=== PATIENT | female | born 1970 | race Caucasian/White ===

== ENCOUNTER 2018-11-13 08:02 | Emergency (ER) | payer MEDICAID, OTHER ==
[~2018-11-13] VITALS: Ht 152.4 cm; Wt 77.1 kg
--- NOTE | 2018-11-13 08:40 | NUR ---
NOTIFIED OF BUSY ER WITH POSSIBLE LONG WAIT TIME
--- NOTE | 2018-11-13 09:51 | NUR ---
RESTING IN BED. NOTIFIED PT THAT DR WAS STILL WITH CRITICAL PTS. DENIES NEEDS AT THIS TIME.
[2018-11-13] MEDS ORDERED: CYCL10TA9 PO (10:16)
--- NOTE | 2018-11-13 10:16 | ED Lower Extremity ---
General Chief Complaint: Lower Extremity Stated Complaint: LEG PAIN Nursing Triage Note: ARRIVED VIA AMB WITH A LIMP TO ROOM 05. STATES SHE THINKS SHE PULLED A MUSCLE WHILE MOVING FURNITURE YESTERDAY. COMPLAINS OF RIGHT BUTTOCK PAIN. STATES SHE TOOK IBUPROFEN LAST NOC WHICH DID NOT HELP. Nursing Sepsis Screen: No Definite Risk Source: patient Exam Limitations: no limitations History of Present Illness Date Seen by Provider: Nov 13, 2018 Time Seen by Provider: 09:55 Initial Comments Here with complaint of pain to the left buttock area after pushing furniture yesterday. Denies other injury. Noted that it was painful overnight. Here today for evaluation. Onset: yesterday Severity: moderate Pain/Injury Location: left hip Method of Injury: unknown Modifying Factors: Improves With Immobilization; Worse With Movement Allergies and Home Medications Allergies Uncoded Allergies: DOES NOT REMEMBER NAME OF ALLERGY. (Allergy, Unknown, 11/13/18) Home Medications No Active Prescriptions or Reported Meds Patient Home Medication List Home Medication List Reviewed: Yes Review of Systems Constitutional: see HPI; No chills, No fever, No weakness Respiratory: no symptoms reported Cardiovascular: no symptoms reported Musculoskeletal: see HPI, joint pain, muscle pain, muscle stiffness Skin: no symptoms reported Past Hoohuju-Xbotbu-Slskme Hx Past Med/Social Hx: Reviewed Nursing Past Med/Soc Hx Patient Social History Alcohol Use: Denies Use Recreational Drug Use: No (PAST HISTORY OF POT. ) Smoking Status: Current Everyday Smoker Recent Foreign Travel: No Contact w/Someone Who Travel: No Recent Infectious Disease Expo: No Recent Hopitalizations: No Seasonal Allergies Seasonal Allergies: No Past Medical History Surgeries: Yes Tubal Ligation Respiratory: Yes Asthma Cardiac: No Neurological: No Gastrointestinal: No Musculoskeletal: Yes Fractures Endocrine: No HEENT: No Did You Recieve Any Treatments: No Psychosocial: No Integumentary: No Family Medical History Reviewed Nursing Family Hx Physical Exam Vital Signs Vital Signs - First Documented 11/13/18 08:40 Temp 98.0 Pulse 78 Resp 16 B/P (MAP) 130/74 (92) Pulse Ox 98 O2 Delivery Room Air Capillary Refill : Less Than 3 Seconds Height, Weight, BMI Height: 5'" Weight: 170lbs. oz. 77.825017pn; BMI Method:Stated General Appearance: WD/WN, no apparent distress Cardiovascular: regular rate, rhythm, no murmur Respiratory: lungs clear, normal breath sounds Back: normal inspection, no CVA tenderness, no vertebral tenderness Legs: left leg soft tissue tenderness, left leg other (tender to that area of the left buttock initially when stepping up or externally rotating hip.) Progress/Results/Core Measures Results/Orders Vital Signs/I&O 11/13/18 08:40 Temp 98.0 Pulse 78 Resp 16 B/P (MAP) 130/74 (92) Pulse Ox 98 O2 Delivery Room Air Blood Pressure Mean: 92 Progress Progress Note : Progress Note Seen and evaluated. Discharged home with return precautions. Patient verbalize understanding instructions and agreement with plan Departure Impression Primary Impression: Muscle strain of gluteal region Qualified Codes: S76.012A - Strain of muscle, fascia and tendon of left hip, initial encounter Disposition: HOME, SELF-CARE Condition: Stable Departure-Patient Inst. Decision time for Depature: 10:14 Referrals: NO,LOCAL PHYSICIAN (PCP/Family) Primary Care Physician Patient Instructions: Muscle Strain (DC) Add. Discharge Instructions: All discharge instructions reviewed with patient and/or family. Voiced understanding. You may take ibuprofen 800 mg every 8 hours as needed for pain. You may take Tylenol/acetaminophen 1000 mg every 8 hours as needed for pain. He may use over- the-counter preparations such as icy hot with lidocaine or similar to areas of concern. You may use heat or ice to area of concern which ever feels better. Follow up with your Dr. in a few days for recheck. Return for worse pain, swelling, weakness, numbness of the leg, difficulty walking or going to the bathroom or other concerns as needed. Scripts Cyclobenzaprine HCl (Cyclobenzaprine HCl) 10 Mg Tablet 10 MG PO Q8H PRN for SPASMS, #15 TAB 0 Refills Prov: CARLOS EDUARDO AMOS MD 11/13/18 CARLOS EDUARDO AMOS MD Nov 13, 2018 10:16
[2018-11-13 10:18] VITALS: BP 130/74
== END 2018-11-13 10:18 | disposition home or self-care (01) ==
LOC: EDUNIT# 08:02 → ER 08:03
DX: S76.012A Strain of muscle, fascia and tendon of left hip, initial encounter (principal); J45.909 Unspecified asthma, uncomplicated; F17.200 Nicotine dependence, unspecified, uncomplicated; Z98.51 Tubal ligation status; X50.0XXA Overexertion from strenuous movement or load, initial encounter
CPT/HCPCS: 99282

== ENCOUNTER 2019-02-10 12:31 | Emergency (ER) | payer MEDICAID ==
[~2019-02-10] VITALS: Ht 152.4 cm; Wt 77.1 kg
[~2019-02-10 12:31] MED LIST: CYCL10TA9 PO
--- OUTSIDE RECORDS SUMMARY | 2019-02-10 12:38 | XMS REPORT ---
Author Author LUANA VARELA [facility] Address [address] [place] [address] Care Team Providers Care Corporate Development Analyst Name Role Phone LUANA VARELA Unavailable PROBLEMS Type Condition ICD9-CM Code BWS59-HL Code Onset Dates Condition Status SNOMED Code Problem Episodic mood disorder F39 Active 39882069 Problem Mild intermittent asthma without complication J45.20 Active 083672863 Problem Bilateral low back pain without sciatica M54.5 Active 342905679 ALLERGIES No Information ENCOUNTERS Encounter Location Date Diagnosis [facility] [id number] [place] [id number] November, Nasopharyngitis J00 [facility] [id number] [place] [address] November, Poison cesar dermatitis L23.7 and Itching L29.9 [id number] [place] [id number] Sep, Irritant contact dermatitis due to plants, except food L24.7 [facility] [id number] [place] [address] Sep, [facility] [id number] [place] [address] Feb, Poison cesar L23.7 [facility] [address] [id number] [id number] Feb, Closed fracture of right ankle with routine healing, subsequent encounter S82.891D [id number] [place] [id number] Feb, Closed fracture of right ankle with routine healing, subsequent encounter S82.891D and Mild intermittent asthma without complication J45.20 [id number] [place] [id number] Oct, [facility] [address] [id number] [place] [id number] Sep, Bilateral low back pain without sciatica M54.5 [facility] [address] [id number] [place] [id number] Sep, [facility] [address] [id number] [place], [place] [id number] Aug, [facility] [address] [id number] [place] [id number] Aug, [facility] [address] [id number][place] [id number] Aug, Encounter for other specified administrative purpose Z02.89 [facility] [id number] [place] [id number] Jul, Bilateral low back pain without sciatica M54.5 and Episodic mood disorder F39 [facility] [address] [id number] [place], [place] [id number] Jun, [facility] [address] [id number] [place] [id number] Jun, [facility] [address] [id number][place] [id number] Jun, [facility] [address] [id number], [place] [id number] Jun, [facility] [address] [id number], [place] [id number] May, [facility] [address] [id number][place] [id number] May, [facility] [address] [id number][place] [id number] May, [facility] [address] [facility] [id number] [place], [place] [id number] Apr, [facility] [address] [id number][place] [id number] Apr, Dental examination Z01.20 [facility] [address] [id number] [place], [place] [id number] Apr, [facility] [address] [id number] [place], [place] [id number] Apr, [facility] [address] [id number] [place], [place] [id number] Mar, Tobacco abuse disorder 305.1 [facility] [address] [id number] [place], [place] [id number] Mar, Anxiety state, unspecified 300.00 [facility] [address] [facility] [id number], [place] [id number] Mar, [facility] [address] [id number] [place], [place] [id number] Feb, [facility] [address] [id number] [place], [place] [id number] Feb, [facility] [address] [facility] [id number] [place], [place] [id number] Feb, Routine gynecological examination V72.31 ; Visit for gynecologic examination V72.31 ; Pap test, as part of routine gynecological examination V76.2 ; Breast cancer screening V76.10 and Vaginal leukorrhea 623.5 [facility] [address] [id number] [place] [id number] Feb, Lumbago 724.2 and Unspecified arthropathy, site unspecified 716.90 [facility] [address] [id number] [place], [place] [id number] Feb, [facility] [address] [id number] [place] [id number] Feb, [facility] [address] [id number] [place], [place] [id number] Jan, Sciatica 724.3 and Anxiety state, unspecified 300.00 [facility] [address] [id number] [place], [place] [id number] Dec, [facility] [address] [id number] [place], [place] [id number] Dec, Sciatica 724.3 and Anxiety state, unspecified 300.00 [facility] [id number] [place] [address] [id number] November, [facility] [address] [id number] [place] [id number] November, Sciatica 724.3 and Poison cesar 692.6 [facility] [place] [facility] [address]00565100[place], [place] [address] Oct, [facility] [place] [facility] [id number] [place] [address] Oct, [facility] [place] [facility] [id number] [place] [address] Sep, [facility] [id number] [place] [address] [id number] Sep, [facility] [place] [facility] [id number] [place] [address] Sep, [facility] [id number] [place], [place] [id number] Aug, [facility] [place] [facility] [address]00565100[place], [place] [address] Aug, [facility] [id number] [place], [place] [id number] Jul, [facility] [place] [facility] [address]00565100[place], [place] [address] Jul, [facility] [address] [id number] [place], [place] [id number] Jul, [facility] [place] [facility] [address]00565100[place], [place] [address] Jul, [facility] [place] [facility] [address] [id number], [place] [address] Jun, [facility] [id number] [place], [place] [id number] Jun, [facility] [place] [facility] [address]00565100[place], [place] [address] Jun, [facility] [place] [facility] [address]00565100[place], [place] [address] May, [facility] [address] [id number] [place] [id number] May, [facility] [address] [id number] [place] [id number] Apr, [facility] [place] [facility] [address] [facility] [id number] [place] [address] Apr, [facility] [address] [id number] [place] [id number] Mar, [facility] [place] [facility] [address] [facility] [id number] [place] [address] Mar, [facility] [address] [id number] [place] [id number] Mar, [facility] [place] [facility] [address] [facility] [id number] [place] [address] Mar, [facility] [address] [facility] [id number] [place] [id number] Jan, [facility] [place] [facility] [address] [id number], [place] [address] Jan, [facility] [address] [facility] [id number] [place] [id number] Dec, [facility] [place] [facility] [address] [id number], [place] [address] Dec, [facility] [address] [id number] [place] [id number] Dec, [facility] [place] [facility] [address] [facility] [id number], [place] [address] Dec, [facility] [address] [id number] [place] [id number] Dec, [facility] [place] [facility] [address] [facility] [id number], [place] [address] Dec, [facility] [address] [facility] [id number] [place], [place] [id number] November, [facility] [place] [facility] [address] [id number], [place] [address] November, [facility] [address] [id number] [place] [id number] November, [facility] [address] [facility] [id number] [place] [address] November, [facility] [address] [id number] [place] [id number] Oct, [facility] [place] [facility] [address] [facility] [id number] [place] [address] Oct, [facility] [address] [id number] [place] [id number] Sep, [facility] [place] [facility] [address] [facility] [id number] [place] [address] Sep, [facility] [address] [facility] [id number] [place] [id number] Sep, [facility] [address]00565100[place], [place] [address] Sep, [facility] [address] [facility] [id number] [place] [id number] Aug, [facility] [place] [facility] [address]00565100[place], [place] [address] Aug, [facility] [address] [facility] [id number] [place] [id number] Aug, [facility] [address] [id number], [place] [address] Aug, [facility] [place] [facility] [address] [facility] [id number], [place] [address] Jul, [facility] [address] [id number] [place] [id number] Jul, [facility] [address] [id number] [place] [id number] Jul, [facility] [place] [facility] [address] [facility] [id number], [place] [address] Jul, [facility] [address] [id number] [place] [id number] Jul, [facility] [address] [facility] [id number] [place] [address] Jul, [facility] [address] [id number] [place] [id number] Apr, [facility] [address] [facility] [id number], [place] [address] Apr, [facility] [address] [id number] [place] [id number] Apr, [facility] [address] [id number] [place] 8262075[address] Mar, [facility] [address] [id number] [place] [id number] Feb, [facility] [address] [facility] [id number] [place] [address] Feb, [facility] [address] [id number] [place] [id number] Jan, [facility] [address] [facility] [id number], [place] [address] Dec, [facility] [address] [id number] [place] [id number] Dec, [facility] [address] [facility] [id number], [place] [address] Dec, [facility] [address] [id number] [place] [id number] Dec, [facility] [address] [id number] [place] [id number] November, [facility] [address] [id number] [place] 698686344 Sep, [facility] [address] [id number] [place] [id number] Aug, [facility] [address] [id number] [place] [id number] Jul, [facility] [address] [id number] [place] [id number] Jul, [facility] [address] [id number] [place] [id number] Jun, [facility] [place] [facility] [address] [facility] [id number], [place] [address] Jun, [facility] [address] [id number] [place] [id number] May, [facility] [place] [facility] [address] [facility] [id number], [place] [address] May, [facility] [address] [id number] [place] [id number] May, [facility] [place] [facility] [address] [facility] [id number] [place] [address] May, [facility] [place] [facility] [address] [facility] [id number], [place] [address] May, [facility] [address] [id number] [place], [place] [id number] Apr, [facility] [address] [id number] [place], [place] [id number] Apr, [facility] [place] [facility] [address] [facility] [id number], [place] [address] Apr, [facility] [place] [facility] [address] [facility] [id number], [place] [address] Apr, [facility] [address] [id number] [place] [id number] Mar, [facility] [address] [id number] [place], [place] [id number] Feb, [facility] [address] [id number] [place], [place] [id number] Feb, [facility] [address] [id number] [place] [id number] Feb, [facility] [address] [id number] [place] 170583748 Jan, [facility] [address] [id number] [place], [place] [id number] Jan, [facility] [address] [id number] [place], [place] [id number] Jan, [facility] [address] [facility] [id number] [place] [address] Jan, [address] [id number] [place] [id number] Dec, [address] [id number] [place] [id number] Dec, IMMUNIZATIONS No Known Immunizations SOCIAL HISTORY Never Assessed REASON FOR VISIT PLAN OF CARE VITAL SIGNS MEDICATIONS No Known Medications RESULTS No Results PROCEDURES No Known procedures INSTRUCTIONS MEDICATIONS ADMINISTERED No Known Medications MEDICAL (GENERAL) HISTORY Type Description Date Medical History asthma Medical History anxiety Medical History osteoarthritis Surgical History tubal ligation 1992 Hospitalization History [facility] care for poison cesar November 2014 Hospitalization History right ankle fracture, has a brace on 12/2016
--- OUTSIDE RECORDS SUMMARY | 2019-02-10 12:38 | XMS REPORT ---
Author Author LUANA VARELA [facility] Address [address] [place] [address] Care Team Providers Care Portfolio Mgr Name Role Phone LUANA VARELA Unavailable PROBLEMS Type Condition ICD9-CM Code ULI04-TN Code Onset Dates Condition Status SNOMED Code Problem Episodic mood disorder F39 Active 17237215 Problem Mild intermittent asthma without complication J45.20 Active 123071018 Problem Bilateral low back pain without sciatica M54.5 Active 225085791 ALLERGIES No Information ENCOUNTERS Encounter Location Date Diagnosis [facility] [id number] [place] [phone] November, Nasopharyngitis J00 [facility] [id number] [place] [address] November, Poison cesar dermatitis L23.7 and Itching L29.9 [id number] [place] [id number] Sep, Irritant contact dermatitis due to plants, except food L24.7 [facility] [id number] [place] [address] Sep, [facility] [id number] [place] [address] Feb, Poison cesar L23.7 [facility] [address] [id number][place] [id number] Feb, Closed fracture of right ankle with routine healing, subsequent encounter S82.891D [id number] [place] [address] [id number] Feb, Closed fracture of right ankle with routine healing, subsequent encounter S82.891D and Mild intermittent asthma without complication J45.20 [id number] [place] [address] [id number] Oct, [facility] [place] [address] [id number][place] [id number] Sep, Bilateral low back pain without sciatica M54.5 [facility] [address] [id number], [place] [id number] Sep, [facility] [address] [id number], [place] [id number] Aug, [facility] [address] [id number], [place] [id number] Aug, [facility] [address] [id number], [place] [id number] Aug, Encounter for other specified administrative purpose Z02.89 [facility] [id number], [place] [id number] Jul, Bilateral low back pain without sciatica M54.5 and Episodic mood disorder F39 [facility] [address] [id number], [place] [id number] Jun, [facility] [address] [id number], [place] [id number] Jun, [facility] [address] [id number], [place] [id number] Jun, [facility] [address] [id number], [place] [id number] Jun, [facility] [address] [id number], [place] [id number] May, [facility] [address] [id number], [place] [id number] May, [facility] [address] [id number], [place] [id number] May, [facility] [address] [facility] [id number][place] [phone] Apr, [facility] [address] [id number], [place] [id number] Apr, Dental examination Z01.20 [facility] [address] [id number], [place] [id number] Apr, [facility] [address] [id number], [place] [id number] Apr, [facility] [address] [id number], [place] [id number] Mar, Tobacco abuse disorder 305.1 [facility] [address] [id number], [place] [id number] Mar, Anxiety state, unspecified 300.00 [facility] [id number] [facility] [id number][place] [id number] Mar, [facility] [address] [id number], [place] [id number] Feb, [facility] [address] [id number], [place] [id number] Feb, [facility] [place] [address] [facility] [id number], [place] [phone] Feb, Routine gynecological examination V72.31 ; Visit for gynecologic examination V72.31 ; Pap test, as part of routine gynecological examination V76.2 ; Breast cancer screening V76.10 and Vaginal leukorrhea 623.5 [facility] [place] [address] [id number], [place] [id number] Feb, Lumbago 724.2 and Unspecified arthropathy, site unspecified 716.90 [facility] [place] [address] [id number], [place] [id number] Feb, [facility] [place] [address] [id number], [place] [id number] Feb, [facility] [place] [address] [id number], [place] [id number] Jan, Sciatica 724.3 and Anxiety state, unspecified 300.00 [facility] [place] [address] [id number], [place] [id number] Dec, [facility] [address] [id number], [place] [id number] Dec, Sciatica 724.3 and Anxiety state, unspecified 300.00 [facility] [id number] [place] [address] [id number] November, [facility] [address] [id number], [place] [id number] November, Sciatica 724.3 and Poison cesar 692.6 [facility] [place] [facility] [address]00565100[place] [address] Oct, [facility] [place] [facility] [id number] [place] [address] Oct, [facility] [place] [facility] [id number] [place] [address] Sep, [facility] [id number] [place] [address] [id number] Sep, [facility] [place] [facility] [id number] [place] [address] Sep, [facility] [id number], [place] [id number] Aug, [facility] [place] [facility] [address]00565100[place], [place] [address] Aug, [facility] [id number], [place] [id number] Jul, [facility] [place] [facility] [address]00565100[place], [place] [address] Jul, [facility] [address] [id number], [place] [id number] Jul, [facility] [place] [facility] [address]00565100[place], [place] [address] Jul, [facility] [place] [facility] [address] [id number], [place] [address] Jun, [facility] [id number], [place] [id number] Jun, [facility] [place] [facility] [address]00565100[place], [place] [address] Jun, [facility] [place] [facility] [address]00565100[place], [place] [address] May, [facility] [address] [id number] [place] [id number] May, [facility] [address] [id number] [place] [id number] Apr, [facility] [place] [facility] [address] [facility] [id number] [place] [address] Apr, [facility] [address] [id number] [place] [id number] Mar, [facility] [place] [facility] [address] [facility] [id number] [place] [address] Mar, [facility] [address] [id number] [place] [id number] Mar, [facility] [place] [facility] [address] [facility] [id number] [place] [address] Mar, [facility] [address] [facility] [id number] [place] [id number] Jan, [facility] [place] [facility] [address] [id number], [place] [address] Jan, [facility] [address] [facility] [id number] [place] [id number] Dec, [facility] [place] [facility] [address] [id number], [place] [address] Dec, [facility] [address] [id number] [place] [id number] Dec, [facility] [place] [facility] [address] [facility] [id number], [place] [address] Dec, [facility] [address] [id number] [place] [id number] Dec, [facility] [place] [facility] [address] [facility] [id number], [place] [address] Dec, [facility] [address] [facility] [id number], [place] [id number] November, [facility] [place] [facility] [address] [id number], [place] [address] November, [facility] [address] [id number] [place] [id number] November, [facility] [address] [facility] [id number] [place] [address] November, [facility] [address] [id number] [place] 870982390 Oct, [facility] [place] [facility] [address] [facility] [id number] [place] [address] Oct, [facility] [address] [id number] [place] [id number] Sep, [facility] [place] [facility] [address] [facility] [id number] [place] [address] Sep, [facility] [address] [facility] [id number] [place] 232733104 Sep, [facility] [address]00565100[place], [place] [address] Sep, [facility] [address] [facility] [id number] [place] [id number] Aug, [facility] [place] [facility] [address]00565100[place], [place] [address] Aug, [facility] [address] [facility] [id number], [place] 684455590 Aug, [facility] [address] [id number], [place] [address] Aug, [facility] [place] [facility] [address] [facility] [id number], [place] [address] Jul, [facility] [address] [id number] [place] [id number] Jul, [facility] [address] [id number] [place] [id number] Jul, [facility] [place] [facility] [address] [facility] [id number], [place] [address] Jul, [facility] [address] [id number], [place] 189524268 Jul, [facility] [address] [facility] [id number] [place] [address] Jul, [facility] [address] [id number] [place] [id number] Apr, [facility] [address] [facility] [id number], [place] [address] Apr, [facility] [address] [id number] [place] [id number] Apr, [facility] [address] [id number] [place] 139163828 Mar, [facility] [address] [id number] [place] [id number] Feb, [facility] [address] [facility] [id number] [place] [address] Feb, [facility] [address] [id number] [place] [id number] Jan, [facility] [address] [facility] [id number], [place] [address] Dec, [facility] [address] [id number] [place] 843574282 Dec, [facility] [address] [facility] [id number], [place] [address] Dec, [facility] [address] [id number] [place] [id number] Dec, [facility] [address] [id number] [place] 402603852 November, [facility] [address] [id number] [place] 599282914 Sep, [facility] [address] [id number] [place] 989679426 Aug, [facility] [address] [id number] [place] 090548253 Jul, [facility] [address] [id number] [place] 154819703 Jul, [facility] [address] [id number] [place] [id number] Jun, [facility] [place] [facility] [address] [facility] [id number], [place] [address] Jun, [facility] [address] [id number] [place] 809269413 May, [facility] [place] [facility] [address] [facility] [id number], [place] [address] May, [facility] [address] [id number], [place] [id number] May, [facility] [place] [facility] [address] [facility] [id number] [place] [address] May, [facility] [place] [facility] [address] [facility] [id number], [place] [address] May, [facility] [address] [id number], [place] [id number] Apr, [facility] [address] [id number], [place] 965685349 Apr, [facility] [place] [facility] [address] [facility] [id number], [place] [address] Apr, [facility] [place] [facility] [address] [facility] [id number], [place] [address] Apr, [facility] [address] [id number], [place] [id number] Mar, [facility] [address] [id number], [place] 057447895 Feb, [facility] [address] [id number], [place] 254428859 Feb, [facility] [address] [id number] [place] 105826273 Feb, [facility] [address] [id number] [place] [id number] Jan, [facility] [address] [id number], [place] 318978123 Jan, [facility] [address] [id number], [place] [id number] Jan, [facility] [address] [facility] [id number] [place] [address] Jan, [facility] [address] [facility] [id number] [place] [id number] Dec, [facility] [address] [facility] [id number] [place] 3481223[address] Dec, IMMUNIZATIONS No Known Immunizations SOCIAL HISTORY Never Assessed REASON FOR VISIT PLAN OF CARE VITAL SIGNS Height 62.5 in 2014-09-10 Weight 171.01 lbs 2014-09-10 Temperature 98.5 degrees Fahrenheit 2014-09-10 Heart Rate 72 bpm 2014-09-10 Respiratory Rate 16 2014-09-10 Blood pressure systolic 110 mmHg 2014-09-10 Blood pressure diastolic 72 mmHg 2014-09-10 MEDICATIONS No Known Medications RESULTS No Results PROCEDURES No Known procedures INSTRUCTIONS MEDICATIONS ADMINISTERED No Known Medications MEDICAL (GENERAL) HISTORY Type Description Date Medical History asthma Medical History anxiety Medical History osteoarthritis Surgical History tubal ligation 1992 Hospitalization History [facility] care for poison cesar November 2014 Hospitalization History right ankle fracture, has a brace on 12/2016
--- OUTSIDE RECORDS SUMMARY | 2019-02-10 12:39 | XMS REPORT ---
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 Active 390736325 Problem Cough 786.2 Active 80201547 Problem Asthma, unspecified, unspecified status 493.90 Active 07049621 Problem Acute upper respiratory infections of unspecified site 465.9 Active 62573303 Problem Nondependent tobacco use disorder 305.1 Active 861848240 Problem Episodic mood disorder F39 Active 00612511 Problem Sciatica 724.3 Active 36489288 Problem Mild intermittent asthma without complication J45.20 Active 050170709 Problem Lumbago 724.2 Active 308264484 Problem Anxiety state, unspecified 300.00 Active 211967172 Problem Unspecified episodic mood disorder 296.90 Active 014044481 Problem Pityriasis versicolor 111.0 Active 63626260 Problem Bilateral low back pain without sciatica M54.5 Active 431113427 ALLERGIES No Information ENCOUNTERS Encounter Location Date Diagnosis [facility] [address] [facility] [id number], [place] [address] November, Poison cesar dermatitis L23.7 and Itching L29.9 [facility] [address] [id number], [place] [id number] Sep, Irritant contact dermatitis due to plants, except food L24.7 [facility] [address] [facility] [id number], [place] [address] Sep, [facility] [address] [id number], [place] [address] Feb, Poison cesar L23.[address] [id number][place] [id number] Feb, Closed fracture of right ankle with routine healing, subsequent encounter S82.891D [facility] [address] [id number], [place] [address] Feb, Closed fracture of right ankle with routine healing, subsequent encounter S82.891D and Mild intermittent asthma without complication J45.20 [facility] [place] [address] [id number], [place] 512960075 Oct, [facility] [id number] [place] [address] [id number] Sep, Bilateral low back pain without sciatica M54.5 [facility] [address] [id number], [place] [id number] Sep, [facility] [address] [id number] [place] [address] [id number] Aug, [facility] [place] [id number] [place] [address] [id number] Aug, [facility] [address]00565100[place] [id number] Aug, Encounter for other specified administrative purpose Z02.89 [facility] [id number], [place] [address]61 Jul, Bilateral low back pain without sciatica M54.5 and Episodic mood disorder F39 [facility] [place] [address] [id number], [place] [id number] Jun, [facility] [address] [id number], [place] [id number] Jun, [facility] [address] [id number], [place] [id number] Jun, [facility] [address] [id number], [place] [id number] Jun, [facility] [address] [id number], [place] [id number] May, [facility] [address] [id number], [place] [id number] May, [facility] [address] [id number], [place] [id number] May, [facility] [address] [id number], [place] 859277383 Apr, [facility] [address] [id number], [place] [id number] Apr, Dental examination Z01.20 [facility] [place] [address] [id number], [place] [id number] Apr, [facility] [address] [id number], [place] 634805013 Apr, [facility] [address] [id number], [place] [id number] Mar, Tobacco abuse disorder 305.1 [facility] [id number] [place] [address] [id number] Mar, Anxiety state, unspecified 300.00 [facility] [address] [facility] [address] [id number], [place] [id number] Mar, [facility] [address] [id number], [place] [id number] Feb, [facility] [address] [id number], [place] [id number] Feb, [facility] [address] [id number], [place] [id number] Feb, Routine gynecological examination V72.31 ; Visit for gynecologic examination V72.31 ; Pap test, as part of routine gynecological examination V76.2 ; Breast cancer screening V76.10 and Vaginal leukorrhea 623.5 [facility] [address] [id number], [place] 126712451 Feb, Lumbago 724.2 and Unspecified arthropathy, site unspecified 716.90 [facility] [address] [id number], [place] [id number] Feb, [facility] [address] [id number], [place] 387708317 Feb, [facility] [address] [id number], [place] 072303041 Jan, Sciatica 724.3 and Anxiety state, unspecified 300.00 [facility] [place] [address] [id number], [place] [id number] Dec, [facility] [address] [id number], [place] 138166904 Dec, Sciatica 724.3 and Anxiety state, unspecified 300.00 [facility] [address] [id number], [place] [id number] November, [facility] [id number] [place] [address] [id number] November, Sciatica 724.3 and Poison cesar 692.6 [facility] [place] [facility] [id number] [place] [address] Oct, [facility] [place] [facility] [id number] [place] [address] Oct, [facility] [place] [facility] [id number] [place] [address] Sep, [facility] [id number], [place] [address]34400461 Sep, [facility] [place] [facility] [id number] [place] [address] Sep, [facility] [id number], [place] [id number] Aug, [facility] [place] [facility] [address]00565100[place], [place] [address] Aug, [facility] [id number], [place] [id number] Jul, [facility] [place] [facility] [address]00565100[place], [place] [address] Jul, [facility] [id number], [place] [id number] Jul, [facility] [place] [facility] [address]00565100[place], [place] [address] Jul, [facility] [place] [facility] [address]00565100[place], [place] [address] Jun, [facility] [address] [id number], [place] [id number] Jun, [facility] [place] [facility] [address] [facility] [id number], [place] [address] Jun, [facility] [place] [facility] [address] [facility] [id number], [place] [address] May, [facility] [address] [facility] [id number] [place] [id number] May, [facility] [address] [facility] [id number], [place] [id number] Apr, [facility] [facility] [address] [facility] [id number], [place] [address] Apr, [facility] [address] [facility] [id number], [place] 392784457 Mar, [facility] [place] [facility] [address]00565100[place], [place] [address] Mar, [facility] [address] [facility] [id number], [place] [id number] Mar, [facility] [place] [facility] [address]00565100[place], [place] [address] Mar, [facility] [address] [facility] [id number], [place] 212076813 Jan, [facility] [place] [facility] [address] [id number], [place] [address] Jan, [facility] [address] [facility] [id number], [place] 317221746 Dec, [facility] [place] [facility] [address] [facility] [id number], [place] [address] Dec, [facility] [address] [facility] [id number], [place] 997441767 Dec, [facility] [place] [facility] [address] [facility] [id number] [place] [address] Dec, [facility] [address] [facility] [id number], [place] [id number] Dec, [facility] [facility] [address] [facility] [id number], [place] [address] Dec, [facility] [address] [facility] [id number], [place] 907938123 November, [facility] [facility] [address] [facility] [id number], [place] [address] November, [facility] [address] [facility] [id number], [place] 403613489 November, [facility] [facility] [address] [facility] [id number], [place] [address] November, [facility] [address] [facility] [id number], [place] 238811245 Oct, [facility] [place] [facility] [address]00565100[place], [place] [address] Oct, [facility] [id number], [place] 460[address]3439 Sep, [facility] [place] [facility] [address]00565100[place], [place] [address] Sep, [facility] [address] [id number], [place] 923421901 Sep, [facility] [place] [facility] [address]00565100[place], [place] [address] Sep, [facility] [address] [id number], [place] 745102846 Aug, [facility] [place] [facility] [address] [id number], [place] [address] Aug, [facility] [address] [facility] [id number], [place] [id number] Aug, [facility] [place] [facility] [address] [facility] [id number], [place] [address] Aug, [facility] [place] [facility] [address] [id number], [place] [address] Jul, [facility] [address] [facility] [id number], [place] 539509354 Jul, [facility] [address] [id number] [place] [address] Jul, [facility] [address] [facility] [id number], [place] [address] Jul, [facility] [address] [id number] [place] [id number] Jul, [facility] [address] [facility] [id number], [place] [address] Jul, [facility] [address] [id number] [place] [id number] Apr, [facility] [address] [facility] [id number], [place] [address] Apr, [facility] [address] [id number], [place] 493129982 Apr, [facility] [address] [id number], [place] [id number] Mar, [facility] [address] [id number], [place] 722645752 Feb, [facility] [address] [facility] [id number], [place] [address] Feb, [facility] [address] [id number], [place] 534443547 Jan, [facility] [address] [facility] [id number], [place] [address] Dec, [facility] [address] [id number], [place] 918753424 Dec, [facility] [address] [facility] [id number], [place] [address] Dec, [facility] [address] [id number] [place] 0150[address] Dec, [facility] [address] [id number] [place] 8409944[address] November, [facility] [address] [id number], [place] 075366615 Sep, [facility] [address] [id number] [place] 645086673 Aug, [facility] [address] [id number] [place] 670630[address] Jul, [facility] [address] [id number] [place] 685985987 Jul, [facility] [address] [id number] [place] 595143663 Jun, [facility] [address] [facility] [id number], [place] [address] Jun, [facility] [address] [id number] [place] 186785667 May, [facility] [address] [facility] [id number] [place] [address] May, [facility] [address] [id number], [place] 779531027 May, [facility] [address]65100[place], [place] [address] May, [facility] [address] [facility] [id number], [place] [address] May, [facility] [address] [id number], [place] 812121107 Apr, [facility] [address] [id number], [place] 995654658 Apr, [facility] [address]00565100[place], [place] [address] Apr, [facility] [address] [facility] [id number], [place] [address] Apr, [facility] [address] [id number], [place] 831694293 Mar, [facility] [address] [id number], [place] 712805065 Feb, [facility] [address] [id number], [place] 804209748 Feb, [facility] [address] [id number], [place] 563606678 Feb, [facility] [address] [facility] [id number], [place] 997562225 Jan, [facility] [address]00565100[place], [place] [address]80[address] Jan, [facility] [address] [id number], [place] 621334269 Jan, [id number], [place] 94[address] Jan, [address]00565100[place], [place] 54[address]27[address] Dec, [address] [id number] 823118779 Dec, IMMUNIZATIONS No Known Immunizations SOCIAL HISTORY Never Assessed REASON FOR VISIT [place] [place] VITAL SIGNS MEDICATIONS Unknown Medications RESULTS No Results PROCEDURES No Known procedures INSTRUCTIONS MEDICATIONS ADMINISTERED No Known Medications MEDICAL (GENERAL) HISTORY Type Description Date Medical History asthma Medical History anxiety Medical History osteoarthritis Surgical History tubal ligation 1992 Hospitalization History [facility] care for poison cesar November 2014 Hospitalization History right ankle fracture, has a brace on 12/2016
--- OUTSIDE RECORDS SUMMARY | 2019-02-10 12:39 | XMS REPORT ---
Author Author Migration, Doctor Organization [facility] Address Unknown Phone Unavailable Care Team Providers Care Jacquard Loom Card Changer Name Role Phone Migration, Doctor Unavailable Unavailable PROBLEMS Type Condition ICD9-CM Code GZP24-SM Code Onset Dates Condition Status SNOMED Code Problem Episodic mood disorder F39 Active 15889903 Problem Mild intermittent asthma without complication J45.20 Active 140979891 Problem Bilateral low back pain without sciatica M54.5 Active 144063677 ALLERGIES No Information ENCOUNTERS Encounter Location Date Diagnosis [address] [place] [id number] [place] [id number] November, Nasopharyngitis J00 [facility] [id number] [place] [address] November, Poison cesar dermatitis L23.7 and Itching L29.9 [address] [place] [id number] [place] [address] [id number] Sep, Irritant contact dermatitis due to plants, except food L24.7 [facility] [id number] [place] [address] Sep, [facility] [id number] [place] [address] Feb, Poison cesar L23.[address] [id number] [id number] 09 Feb, 2017 Closed fracture of right ankle with routine healing, subsequent encounter S82.891D [address] [place] [id number] [place] [address] [id number] Feb, Closed fracture of right ankle with routine healing, subsequent encounter S82.891D and Mild intermittent asthma without complication J45.20 [facility] [id number] [place] [id number] Oct, [address] [id number] Sep, Bilateral low back pain without sciatica M54.5 [facility] [address] [id number][place] [id number] Sep, [facility] [address] [id number], [place] [id number] Aug, [facility] [address] [id number], [place] [id number] Aug, [facility] [address] [id number] [place] [id number] Aug, Encounter for other specified administrative purpose Z02.89 [facility] [id number] [place] [address] [id number] Jul, Bilateral low back pain without sciatica M54.5 and Episodic mood disorder F39 [facility] [address] [id number], [place] [id number] Jun, [facility] [address] [id number], [place] [id number] Jun, [facility] [address] [address] [id number][place] [id number] Jun, [facility] [address] [id number], [place] [id number] Jun, [facility] [address] [id number], [place] [id number] May, [facility] [address] [id number], [place] [id number] May, [facility] [address] [address] [id number], [place] [id number] May, [facility] [address] [id number], [place] [id number] Apr, [facility] [address] [id number] [place] [id number] Apr, Dental examination Z01.20 [facility] [address] [id number], [place] [id number] Apr, [facility] [address] [id number], [place] [id number] Apr, [facility] [address] [id number], [place] [id number] Mar, Tobacco abuse disorder 305.1 [facility] [address] [id number], [place] [id number] Mar, Anxiety state, unspecified 300.00 [facility] [address] [id number], [place] [id number] Mar, [facility] [address] [id number], [place] [id number] Feb, [facility] [address] [id number], [place] [id number] Feb, [facility] [address] [id number], [place] [id number] Feb, Routine gynecological examination V72.31 ; Visit for gynecologic examination V72.31 ; Pap test, as part of routine gynecological examination V76.2 ; Breast cancer screening V76.10 and Vaginal leukorrhea 623.5 [facility] [address] [id number], [place] [id number] Feb, Lumbago 724.2 and Unspecified arthropathy, site unspecified 716.90 [facility] [address] [id number], [place] [id number] Feb, [facility] [address] [id number], [place] [id number] Feb, [facility] [address] [id number], [place] 673803584 Jan, Sciatica 724.3 and Anxiety state, unspecified 300.00 [facility] [address] [id number], [place] [id number] Dec, [facility] [address] [id number] [place] [address] [id number] Dec, Sciatica 724.3 and Anxiety state, unspecified 300.00 [facility] [address] [id number], [place] [id number] November, [facility] [id number] [place] [address] [id number] November, Sciatica 724.3 and Poison cesar 692.6 [facility] [address]00565100[place] [address] Oct, [facility] [place] [facility] [address]00565100[place] [address] Oct, [facility] [address]00565100[place] [address] Sep, [facility] [id number], [place] [id number] Sep, [facility] [address] [place] [address] Sep, [facility] [id number], [place] [id number] Aug, [facility] [address]65100[place] [address] Aug, [facility] [id number], [place] [id number] Jul, [facility] [id number] [address] Jul, [facility] [id number], [place] [id number] Jul, [facility] [address]65[address] [address] Jul, [facility] [place] [facility] [address] [id number] [address] Jun, [facility] [address] [id number], [place] 948781441 Jun, [facility] [place] [facility] [id number] [address] Jun, [facility] [place] [facility] [address] [id number] [address] May, [facility] [address] [id number], [place] [id number] May, [facility] [address] [id number] [place] [id number] Apr, [facility] [place] [facility] [address] [facility] [id number] [place] [address] Apr, [facility] [address] [id number] [place] [id number] Mar, [facility] [place] [facility] [address] [facility] [id number] [place] [address] Mar, [facility] [address] [id number] [place] [id number] Mar, [facility] [place] [facility] [address] [facility] [id number] [place] [address] Mar, [facility] [address] [facility] [id number] [place] [id number] Jan, [facility] [place] [facility] [id number] [address] Jan, [facility] [address] [id number] [place] [id number] Dec, [facility] [place] [facility] [address] [facility] [id number] [place] [address] Dec, [facility] [address] [facility] [id number] [place] [id number] Dec, [facility] [place] [facility] [address] [facility] [id number] [place] [address] Dec, [facility] [address] [id number], [place] [id number] Dec, [facility] [place] [facility] [address] [facility] [id number] [place] [address] Dec, [facility] [address] [id number] [place] [id number] November, [facility] [place] [facility] [address] [facility] [id number] [place] [address] November, [facility] [address] [id number], [place] [id number] November, [facility] [place] [facility] [address] [id number] [place] [address] November, [facility] [address] [id number] [place] [id number] Oct, [facility] [place] [facility] [address] [facility] [id number] [place] [address] Oct, [facility] [address] [id number] [place] [id number] Sep, [facility] [place] [facility] [address] [id number] [place] [address] Sep, [facility] [address] [id number] [place] [id number] Sep, [facility] [place] [facility] [address] [facility] [id number] [place] [address] Sep, [facility] [address] [facility] [id number] [place] [id number] Aug, [facility] [place] [facility] [address] [facility] [id number] [place] [address] Aug, [facility] [address] [facility] [id number] [place] [id number] Aug, [facility] [place] [facility] [address] [facility] [id number] [place] [address] Aug, [facility] [place] [facility] [address] [facility] [id number] [place] [address] Jul, [facility] [address] [id number], [place] 088327587 Jul, [facility] [address] [id number] [place] [id number] Jul, [facility] [place] [facility] [address] [facility] [id number] [place] [address] Jul, [facility] [address] [id number] [place] [id number] Jul, [facility] [place] [facility] [address] [facility] [id number] [place] [address] Jul, [facility] [address] [id number] [place] [id number] Apr, [facility] [address] [facility] [id number] [place] [address] Apr, [facility] [address] [id number] [place] 786111134 Apr, [facility] [address] [id number] [place] [id number] Mar, [facility] [address] [id number] [place] 197835994 Feb, [facility] [address]00565[address] [address] Feb, [facility] [address] [id number] [place] [id number] Jan, [facility] [address]00565100[place] [address] Dec, [facility] [address] [id number] [place] [id number] Dec, [facility] [address]00565[address] [address] Dec, [facility] [address] [id number], [place] 021019845 Dec, [facility] [address] [id number], [place] 448292579 November, [facility] [address] [id number] [place] 154088585 Sep, [facility] [address] [id number] [place] 230239191 Aug, [facility] [address] [id number] [place] 837609609 Jul, [facility] [address] [id number] [place] 090406476 Jul, [facility] [address] [id number] [place] [id number] Jun, [facility] [place] [facility] [address] [facility] [id number] [place] [address] Jun, [facility] [address] [id number], [place] 709479789 May, [facility] [place] [facility] [address] [facility] [id number] [place] [address] May, [facility] [address] [id number], [place] [id number] May, [facility] [place] [facility] [address] [facility] [id number] [place] [address] May, [facility] [place] [facility] [address] [facility] [id number] [place] [address] May, [facility] [address] [id number], [place] 988644085 Apr, [facility] [address] [id number], [place] 852295246 Apr, [facility] [address] [facility] [id number] [place] [address] Apr, [facility] [address] [facility] [id number] [place] [address] Apr, [facility] [address] [id number], [place] [id number] Mar, [facility] [address] [id number], [place] [id number] Feb, [facility] [address] [id number], [place] [id number] Feb, [facility] [address] [id number], [place] 567021149 Feb, [facility] [address] [id number], [place] 626928420 Jan, [facility] [address] [id number], [place] [id number] Jan, [facility] [address] [id number], [place] [id number] Jan, [facility] [address] [id number] [place] [address] [place] [id number] Jan, [facility] [address] [facility] [id number] [place] 960[address]25[address] Dec, [facility] 120 [facility] [id number], [place] 311491052 Dec, IMMUNIZATIONS No Known Immunizations SOCIAL HISTORY Never Assessed REASON FOR VISIT EMR-[facility] PLAN OF CARE VITAL SIGNS MEDICATIONS No Known Medications RESULTS No Results PROCEDURES No Known procedures INSTRUCTIONS MEDICATIONS ADMINISTERED No Known Medications MEDICAL (GENERAL) HISTORY Type Description Date Medical History asthma Medical History anxiety Medical History osteoarthritis Surgical History tubal ligation 1992 Hospitalization History [facility] for poison cesar November 2014 Hospitalization History right ankle fracture, has a brace on 12/2016
--- OUTSIDE RECORDS SUMMARY | 2019-02-10 12:39 | XMS REPORT ---
Author Author Migration, Doctor Organization [facility] Address Unknown Phone Unavailable Care Team Providers Care Technical Director Name Role Phone Migration, Doctor Unavailable Unavailable PROBLEMS Type Condition ICD9-CM Code MNI25-GC Code Onset Dates Condition Status SNOMED Code Problem Episodic mood disorder F39 Active 79947340 Problem Mild intermittent asthma without complication J45.20 Active 727335944 Problem Bilateral low back pain without sciatica M54.5 Active 390366959 ALLERGIES Substance Reaction Event Type Date Status Tramadol headaches Drug Allergy Oct, Active Tramadol 50 Mg Tablet Unknown Non Drug Allergy Oct, Active ENCOUNTERS Encounter Location Date Diagnosis [id number] [id number] November, Nasopharyngitis J00 [facility] [address] [id number] [address] November, Poison cesar dermatitis L23.7 and Itching L29.[id number] [place] [id number] Sep, Irritant contact dermatitis due to plants, except food L24.7 [facility] [address] [address] Sep, [facility] [id number] [place] [address] Feb, Poison cesar L23.[address] [id number] [address] Feb, Closed fracture of right ankle with routine healing, subsequent encounter S82.891D [address] [address] Feb, Closed fracture of right ankle with routine healing, subsequent encounter S82.891D and Mild intermittent asthma without complication J45.20 [id number] [address] Oct, [facility] [address] [id number] [id number] Sep, Bilateral low back pain without sciatica M54.5 [facility] [address] [id number][place] [address] Sep, [facility] [address] [id number][place] [address] Aug, [facility] [address] [id number][place] [address] Aug, [facility] [address] [id number][place] [id number] Aug, Encounter for other specified administrative purpose Z02.89 [facility] [id number] [address] Jul, Bilateral low back pain without sciatica M54.5 and Episodic mood disorder F39 [facility] [address] [id number][place] [id number] Jun, [facility] [address] [id number] [id number] Jun, [facility] [address] [id number][place] [id number] Jun, [facility] [address] [id number][place] [id number] Jun, [facility] [address] [id number], [place] [id number] May, [facility] [address] [id number][place] [id number] May, [facility] [address] [id number][place] [address] May, [facility] [address] [facility] [id number], [place] [id number] Apr, [facility] [address] [id number], [place] [address] Apr, Dental examination Z01.20 [facility] [address] [id number][place] [id number] Apr, [facility] [address] [id number], [place] [id number] Apr, [facility] [address] [id number], [place] [address]046[address] Mar, Tobacco abuse disorder 305.1 [facility] [address] [id number], [place] [id number] Mar, Anxiety state, unspecified 300.00 [facility] [address] [id number][place] [address] Mar, [facility] [address] [id number], [place] [id number] Feb, [facility] [address] [id number], [place] [id number] Feb, [facility] [id number], [place] [address] Feb, Routine gynecological examination V72.31 ; Visit for gynecologic examination V72.31 ; Pap test, as part of routine gynecological examination V76.2 ; Breast cancer screening V76.10 and Vaginal leukorrhea 623.5 [facility] [address] [id number], [place] [address]3706[address] Feb, Lumbago 724.2 and Unspecified arthropathy, site unspecified 716.90 [facility] [address] [id number][place] [id number] Feb, [facility] [address] [id number], [place] [address] Feb, [facility] [address] [id number], [place] [address]70856[address] Jan, Sciatica 724.3 and Anxiety state, unspecified 300.00 [facility] [address] [id number][place] 1054732[address] Dec, [facility] [address] [id number], [place] [address]97361833 Dec, Sciatica 724.3 and Anxiety state, unspecified 300.00 [facility] [address] [id number][place] [address] November, [facility] [id number], [place] [address] November, Sciatica 724.3 and Poison cesar 692.6 [facility] [address] [id number] [address] Oct, [facility] [id number] [place] [address] Oct, [facility] [place] [facility] [id number] [place] [address] Sep, [facility] [id number] [place] [id number] Sep, [facility] [id number] [place] [address] Sep, [facility] [id number], [place] [id number] Aug, [facility] [address], [place] [address] Aug, [facility] [id number], [place] [id number] Jul, [facility] [address], [place] [address] Jul, [facility] [id number], [place] [address] Jul, [facility] [address]005[address]100[place], [place] [address] Jul, [facility] [place] [facility] [address]100[place], [place] [address] Jun, [facility] [id number], [place] 159734129 Jun, [facility] [address]005[address]100[place], [place] [address] Jun, [facility] [place] [facility] [address]100[place], [place] [address] May, [facility] [address] [id number] [place] [address] May, [facility] [address] [id number] [place] 0444768[address] Apr, [facility] [place] [facility] [address] [facility] [id number] [address] Apr, [facility] [address] [id number] [place] [address] Mar, [facility] [place] [facility] [address] [facility] [id number][place] [address] Mar, [facility] [address] [id number] [place] [id number] Mar, [facility] [place] [facility] [address], [place] [address] Mar, [facility] [address] [id number] [place] [id number] Jan, [facility] [place] [facility] [address]005[address]100[place], [place] [address] Jan, [facility] [address] [id number] [place] 8541246[address] Dec, [facility] [place] [facility] [address]005[address]100[place], [place] [address] Dec, [facility] [address] [id number], [place] [id number] Dec, [facility] [place] [facility] [address] [facility] [id number] [address] Dec, [facility] [address] [id number] [place] 151347409 Dec, [facility] [place] [facility] [address] [facility] [id number], [place] [address] Dec, [facility] [address] [facility] [id number] [place] [address] November, [facility] [place] [facility] [address] [facility] [id number], [place] [address] November, [facility] [address] [id number] [place] [id number] November, [facility] [address] [facility] [id number] [place] [address] November, [facility] [address] [id number] [place] [id number] Oct, [facility] [address] [facility] [id number][place] [address] Oct, [facility] [address] [id number] [place] [id number] Sep, [facility] [place] [facility] [address] [facility] [id number][place] [address] Sep, [facility] [address] [id number] [place] [id number] Sep, [facility] [address]005[address]100[place], [place] [address] Sep, [facility] [address] [id number], [place] 652980196 Aug, [facility] [place] [facility] [id number], [place] [address] Aug, [facility] [address] [id number], [place] [id number] Aug, [facility] [address] [id number], [place] [address] Aug, [facility] [place] [facility] [address] [facility] [id number] [address] Jul, [facility] [address] [id number] [place] 247472360 Jul, [facility] [address] [id number] [place] [id number] Jul, [facility] [place] [facility] [address] [facility] [id number], [place] [address] Jul, [facility] [address] [id number] [place] 138817[address] Jul, [facility] [address] [facility] [id number] [address] Jul, [facility] [address] [id number] [place] 728208822 Apr, [facility] [address] [facility] [id number] [address] Apr, [facility] [address] [id number] [place] 8742899[address] Apr, [facility] [address] [id number] [place] 938288767 Mar, [facility] [address] [id number] [place] 142042765 Feb, [facility] [address] [id number], [place] [address] Feb, [facility] [address] [id number] [place] 425147650 Jan, [facility] [address] [facility] [id number][place] [address] Dec, [facility] [address] [id number] [place] 800281696 Dec, [facility] [address] [facility] [id number] [address] Dec, [facility] [address] [id number] [place] 571614275 Dec, [facility] [address] [id number] [place] 433109298 November, [facility] [address] [id number] [place] 385[address]1223 Sep, [facility] [address] [id number] [place] 4110316[address] Aug, [facility] [address] [id number] [place] 584909501 Jul, [facility] [address] [id number] [place] 688778999 Jul, [facility] [address] [id number], [place] 602236197 Jun, [facility] [address] [facility] [id number][place] [address] Jun, [facility] [address] [id number], [place] [id number] May, [facility] [address] [facility] [id number] [address] May, [facility] [address] [id number], [place] 900267212 May, [facility] [address] [facility] [id number] [place] [address] May, [facility] [place] [facility] [address] [facility] [id number][place] [address] May, [facility] [address] [id number], [place] 792601706 Apr, [facility] [address] [id number], [place] [id number] Apr, [facility] [address] [facility] [id number][place] [address] Apr, [facility] [address] [facility] [id number][place] [address] Apr, [facility] [address] [id number], [place] 085886066 Mar, [facility] [address] [id number], [place] 065422815 Feb, [facility] [address] [id number], [place] 482154769 Feb, [facility] [address] [id number] [place] [id number] Feb, [facility] [address] [id number], [place] 452044444 Jan, [facility] [address] [id number], [place] 749869979 Jan, [facility] [address] [id number] [place] [address] Jan, [facility] [address] [facility] [id number] [place] [address] Jan, [facility] [address] [facility] [id number] [place] 225[address] Dec, [facility] [address] [facility] [id number] [place] [id number] Dec, IMMUNIZATIONS No Known Immunizations SOCIAL HISTORY Never Assessed REASON FOR VISIT EMR-[place] PLAN OF CARE VITAL SIGNS MEDICATIONS Medication Instructions Dosage Frequency Start Date End Date Duration Status Hydrocodone-Acetaminophen 5-325 mg 1 Tablet by Oral route 1 time per day PRN for breakthrough pain, Must last one month. NOVEMBER REFILL 10/10/2014 Sep, Active Seroquel 100 mg 0.5-1 tablet by Oral route 2 times per day .5 tab am 1 tab hs Aug, Active Xanax 0.5 mg 1 tablet by Oral route 2 times per day Jul, Active Albuterol 90 mcg/actuation inhale 2 puffs by inhalation route every 4-6 hours as needed PRN Jun, Active HydrOXYzine HCl 50 mg 1 Tablet by Oral route 1 time per day take before bed Apr, Active Ibuprofen 800 mg 1 tablet by Oral route 3 times per day PRN take w food Aug, Active RESULTS No Results PROCEDURES No Known procedures INSTRUCTIONS MEDICATIONS ADMINISTERED No Known Medications MEDICAL (GENERAL) HISTORY Type Description Date Medical History asthma Medical History anxiety Medical History osteoarthritis Surgical History tubal ligation 1992 Hospitalization History [facility] for poison cesar November 2014 Hospitalization History right ankle fracture, has a brace on 12/2016
--- OUTSIDE RECORDS SUMMARY | 2019-02-10 12:40 | XMS REPORT ---
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 Active 304262107 Problem Cough 786.2 Active 75516996 Problem Asthma, unspecified, unspecified status 493.90 Active 89067310 Problem Acute upper respiratory infections of unspecified site 465.9 Active 52579820 Problem Nondependent tobacco use disorder 305.1 Active 137787843 Problem Episodic mood disorder F39 Active 64714044 Problem Sciatica 724.3 Active 33093287 Problem Mild intermittent asthma without complication J45.20 Active 505133878 Problem Lumbago 724.2 Active 923532174 Problem Anxiety state, unspecified 300.00 Active 822022712 Problem Unspecified episodic mood disorder 296.90 Active 670926973 Problem Pityriasis versicolor 111.0 Active 93461843 Problem Bilateral low back pain without sciatica M54.5 Active 435875599 ALLERGIES No Information ENCOUNTERS Encounter Location Date Diagnosis [facility] [address] [facility] [id number], [place] [address] November, Poison cesar dermatitis L23.7 and Itching L29.9 [facility] [address] [id number], [place] [id number] Sep, Irritant contact dermatitis due to plants, except food L24.7 [facility] [place] [address] [facility] [id number], [place] [address] Sep, [facility] [address] [id number], [place] [address] Feb, Poison cesar L23.[address] [id number][place] [address] Feb, Closed fracture of right ankle with routine healing, subsequent encounter S82.891D [facility] [address] [id number], [place] [address] Feb, Closed fracture of right ankle with routine healing, subsequent encounter S82.891D and Mild intermittent asthma without complication J45.20 [facility] [address] [id number], [place] [id number] Oct, [facility] [id number] [place] [address] [id number] Sep, Bilateral low back pain without sciatica M54.5 [facility] [address] [id number], [place] [id number] Sep, [facility] [id number] [place] [id number] Aug, [facility] [address] [id number] [place] [id number] Aug, [facility] [address]00565100[place] [id number] Aug, Encounter for other specified administrative purpose Z02.89 [facility] [id number], [place] [id number] Jul, Bilateral low back pain without sciatica M54.5 and Episodic mood disorder F39 [facility] [address] [id number], [place] 315371897 Jun, [facility] [address] [id number], [place] [id number] Jun, [facility] [address] [id number][place] [id number] Jun, [facility] [address] [id number], [place] [address] Jun, [facility] [address] [address] [id number], [place] [id number] May, [facility] [address] [id number], [place] [id number] May, [facility] [address] [id number], [place] [id number] May, [facility] [address] [id number], [place] [id number] Apr, [facility] [address] [id number], [place] [address]66[address]39[address] Apr, Dental examination Z01.20 [facility] [address] [id number], [place] [id number] Apr, [facility] [address] [id number], [place] [id number] Apr, [facility] [address] [id number], [place] 847086317 Mar, Tobacco abuse disorder 305.1 [facility] [address] [id number] [place] [id number] Mar, Anxiety state, unspecified 300.00 [facility] [address] [facility] [id number], [place] [id number] Mar, [facility] [address] [id number], [place] [id number] Feb, [facility] [address] [id number], [place] [address]25641167 Feb, [facility] [address] [id number], [place] [id number] Feb, Routine gynecological examination V72.31 ; Visit for gynecologic examination V72.31 ; Pap test, as part of routine gynecological examination V76.2 ; Breast cancer screening V76.10 and Vaginal leukorrhea 623.5 [facility] [address] [id number], [place] 9586526[address] Feb, Lumbago 724.2 and Unspecified arthropathy, site unspecified 716.90 [facility] [address] [id number], [place] 029088326 Feb, [facility] [address] [id number], [place] [id number] Feb, [facility] [address] [id number], [place] 490432940 Jan, Sciatica 724.3 and Anxiety state, unspecified 300.00 [facility] [address] [id number], [place] 727950561 Dec, [facility] [address] [id number], [place] [address]50788 Dec, Sciatica 724.3 and Anxiety state, unspecified 300.00 [facility] [address] [id number], [place] 179056349 November, [facility] [id number] [place] [address] [id number] November, Sciatica 724.3 and Poison cesar 692.6 [facility] [place] [facility] [id number] [place] [address] Oct, [facility] [place] [facility] [id number] [place] [address] Oct, [facility] [place] [facility] [id number] [place] [address] Sep, [facility] [id number], [place] [address]4941 Sep, [facility] [place] [facility] [address] [place] [address] Sep, [facility] [id number], [place] 138[address]75 Aug, [facility] [place] [facility] [address]00565100[place], [place] [address] Aug, [facility] [id number], [place] [id number] Jul, [facility] [place] [facility] [address]00565100[place], [place] [address] Jul, [facility] [id number], [place] 560014201 Jul, [facility] [facility] [address]00565100[place], [place] [address] Jul, [facility] [place] [facility] [address]00565100[place], [place] [address] Jun, [facility] [address] [id number], [place] 804546883 Jun, [facility] [place] [facility] [address] [facility] [id number], [place] [address] Jun, [facility] [place] [facility] [address] [facility] [id number], [place] [address] May, [facility] [address] [facility] [id number] [place] [address] May, [facility] [address] [facility] [id number], [place] 350741205 Apr, [facility] [place] [facility] [address] [facility] [id number], [place] [address] Apr, [facility] [address] [facility] [id number], [place] 915801541 Mar, [facility] [place] [facility] [address]00565100[place], [place] [address] Mar, [facility] [address] [facility] [id number], [place] 960682533 Mar, [facility] [place] [facility] [address]00565100[place], [place] [address] Mar, [facility] [address] [facility] [id number], [place] [address]24321017 Jan, [facility] [place] [facility] [address] [id number], [place] [address] Jan, [facility] [address] [facility] [id number], [place] 150371915 Dec, [facility] [facility] [address] [facility] [id number], [place] [address] Dec, [facility] [address] [facility] [id number], [place] 005780178 Dec, [facility] [place] [facility] [address] [facility] [id number] [place] [address] Dec, [facility] [address] [facility] [id number], [place] 014066234 Dec, [facility] [address] [facility] [id number], [place] [address] Dec, [facility] [address] [facility] [id number], [place] 134114074 November, [facility] [address] [facility] [id number], [place] [address] November, [facility] [address] [facility] [id number], [place] 500724247 November, [facility] [facility] [address] [facility] [id number], [place] [address] November, [facility] [address] [facility] [id number], [place] 853734700 Oct, [facility] [place] [facility] [address]00565100[place], [place] [address] Oct, [facility] [id number], [place] 881832636 Sep, [facility] [facility] [address]00565100[place], [place] [address] Sep, [facility] [address] [id number], [place] 571790785 Sep, [facility] [place] [facility] [address]00565100[place], [place] [address] Sep, [facility] [address] [id number], [place] [id number] Aug, [facility] [place] [facility] [address] [id number], [place] [address] Aug, [facility] [address] [facility] [id number], [place] 769880216 Aug, [facility] [facility] [address] [facility] [id number], [place] [address] Aug, [facility] [address] [id number], [place] [address] Jul, [facility] [address] [facility] [id number], [place] 580944801 Jul, [facility] [address] [id number] [place] 1969256[address] Jul, [facility] [address] [facility] [id number], [place] [address] Jul, [facility] [address] [id number] [place] [id number] Jul, [facility] [address] [facility] [id number], [place] [address] Jul, [facility] [address] [id number] [place] [id number] Apr, [facility] [address] [facility] [id number], [place] [address] Apr, [facility] [address] [id number], [place] 902277498 Apr, [facility] [address] [id number], [place] 254367427 Mar, [facility] [address] [id number], [place] 129960812 Feb, [facility] [address] [facility] [id number], [place] [address] Feb, [facility] [address] [id number], [place] 215167368 Jan, [facility] [address] [facility] [id number], [place] [address] Dec, [facility] [address] [id number], [place] 624576177 Dec, [facility] [address] [facility] [id number], [place] [address] Dec, [facility] [address] [id number] [place] 932607834 Dec, [facility] [address] [id number] [place] 153532743 November, [facility] [address] [id number], [place] 548885739 Sep, [facility] [address] [id number] [place] [id number] Aug, [facility] [address] [id number] [place] [id number] Jul, [facility] [address] [id number] [place] 447107797 Jul, [facility] [address] [id number] [place] 809819116 Jun, [facility] [address] [facility] [id number], [place] [address] Jun, [facility] [address] [id number] [place] 595783785 May, [facility] [address] [facility] [id number] [place] [address] May, [facility] [address] [id number], [place] 902119249 May, [facility] [address]00565100[place], [place] [address] May, [facility] [address] [facility] [id number], [place] [address] May, [facility] [address] [id number], [place] 731663179 Apr, [facility] [address] [id number], [place] 452787344 Apr, [facility] [address]00565100[place], [place] [address] Apr, [facility] [address] [facility] [id number], [place] [address] Apr, [facility] [address] [id number], [place] 406883885 Mar, [facility] [address] [id number], [place] 912741394 Feb, [facility] [address] [id number], [place] 994362558 Feb, [facility] [address] [id number], [place] 545770256 Feb, [facility] [address] [facility] [id number], [place] 472246993 Jan, [facility] [address]00565100[place], [place] 124[address]38[address] Jan, [facility] [address] [id number], [place] 381745170 Jan, [id number], [place] 15[address]80560 Jan, [address]00565100[place], [place] 203946290 Dec, [id number], [place] 351478796 Dec, IMMUNIZATIONS No Known Immunizations SOCIAL HISTORY Never Assessed REASON FOR VISIT EMR-[facility] PLAN OF CARE VITAL SIGNS MEDICATIONS Unknown Medications RESULTS No Results PROCEDURES No Known procedures INSTRUCTIONS MEDICATIONS ADMINISTERED No Known Medications MEDICAL (GENERAL) HISTORY Type Description Date Medical History asthma Medical History anxiety Medical History osteoarthritis Surgical History tubal ligation 1992 Hospitalization History [facility] for poison cesar November 2014 Hospitalization History right ankle fracture, has a brace on 12/2016
--- OUTSIDE RECORDS SUMMARY | 2019-02-10 12:40 | XMS REPORT ---
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 Active 729410227 Problem Cough 786.2 Active 33984723 Problem Asthma, unspecified, unspecified status 493.90 Active 12727922 Problem Acute upper respiratory infections of unspecified site 465.9 Active 33741966 Problem Nondependent tobacco use disorder 305.1 Active 789466142 Problem Episodic mood disorder F39 Active 96693972 Problem Sciatica 724.3 Active 86208705 Problem Mild intermittent asthma without complication J45.20 Active 024877179 Problem Lumbago 724.2 Active 161567987 Problem Anxiety state, unspecified 300.00 Active 340499947 Problem Unspecified episodic mood disorder 296.90 Active 884801440 Problem Pityriasis versicolor 111.0 Active 57847898 Problem Bilateral low back pain without sciatica M54.5 Active 679250695 ALLERGIES No Information ENCOUNTERS Encounter Location Date Diagnosis [facility] [address] [facility] [id number], [place] [address] November, Poison cesar dermatitis L23.7 and Itching L29.9 [facility] [address] [id number][place] [id number] Sep, Irritant contact dermatitis due to plants, except food L24.7 [facility] [address] [facility] [id number], [place] [address] Sep, [facility] [address] [id number], [place] [address] Feb, Poison cesar L23.[address] [id number] [place] [id number] Feb, Closed fracture of right ankle with routine healing, subsequent encounter S82.891D [facility] [address] [id number][place] [id number] Feb, Closed fracture of right ankle with routine healing, subsequent encounter S82.891D and Mild intermittent asthma without complication J45.20 [facility] [address] [id number], [place] [id number] Oct, [facility] [id number] [place] [id number] Sep, Bilateral low back pain without sciatica M54.5 [facility] [address] [id number], [place] [id number] Sep, [facility] [address] [id number] [place] [address] [id number] Aug, [facility] [address] [id number] [place] [address] [id number] Aug, [facility] [address]00565100[place] [id number] Aug, Encounter for other specified administrative purpose Z02.89 [facility] [id number], [place] [address] Jul, Bilateral low back pain without sciatica M54.5 and Episodic mood disorder F39 [facility] [address] [id number], [place] [id number] Jun, [facility] [address] [id number], [place] [id number] Jun, [facility] [address] [id number] [place] [id number] Jun, [facility] [address] [id number] [place] [id number] Jun, [facility] [address] [id number] [place] [id number] May, [facility] [address] [id number] [place] [id number] May, [facility] [address] [id number] [place] [id number] May, [facility] [address] [id number], [place] [id number] Apr, [facility] [address] [id number], [place] [id number] Apr, Dental examination Z01.20 [facility] [address] [id number], [place] [id number] Apr, [facility] [address] [id number], [place] [id number] Apr, [facility] [address] [id number], [place] [id number] Mar, Tobacco abuse disorder 305.1 [facility] [id number] [place] [address] [id number] Mar, Anxiety state, unspecified 300.00 [facility] [address] [facility] [address] [id number] [place] [id number] Mar, [facility] [address] [id number], [place] [id number] Feb, [facility] [address] [id number], [place] [id number] Feb, [facility] [address] [id number], [place] [id number] Feb, Routine gynecological examination V72.31 ; Visit for gynecologic examination V72.31 ; Pap test, as part of routine gynecological examination V76.2 ; Breast cancer screening V76.10 and Vaginal leukorrhea 623.5 [facility] [address] [id number], [place] [id number] Feb, Lumbago 724.2 and Unspecified arthropathy, site unspecified 716.90 [facility] [address] [id number], [place] [id number] Feb, [facility] [address] [id number], [place] [id number] Feb, [facility] [address] [id number], [place] 144[address]206 Jan, Sciatica 724.3 and Anxiety state, unspecified 300.00 [facility] [address] [id number], [place] [id number] Dec, [facility] [address] [id number], [place] [address]23[address]12[address] Dec, Sciatica 724.3 and Anxiety state, unspecified 300.00 [facility] [address] [id number], [place] [id number] November, [facility] [id number] [place] [address] [id number] November, Sciatica 724.3 and Poison cesar 692.6 [facility] [place] [facility] [id number] [place] [address] Oct, [facility] [place] [facility] [id number] [place] [address] Oct, [facility] [place] [facility] [id number] [place] [address] Sep, [facility] [id number], [place] [id number] Sep, [facility] [place] [facility] [address] [place] [address] Sep, [facility] [id number], [place] [id number] Aug, [facility] [place] [facility] [address]00565100[place], [place] [address] Aug, [facility] [id number], [place] [address]393 Jul, [facility] [place] [facility] [address]00565100[place], [place] [address] Jul, [facility] [id number], [place] [id number] Jul, [facility] [place] [facility] [address]00565100[place], [place] [address] Jul, [facility] [place] [facility] [address]00565100[place], [place] [address] Jun, [facility] [address] [id number], [place] 609006415 Jun, [facility] [place] [facility] [address] [facility] [id number], [place] [address] Jun, [facility] [place] [facility] [address] [facility] [id number], [place] [address] May, [facility] [address] [facility] [id number] [place] [id number] May, [facility] [address] [facility] [id number], [place] [id number] Apr, [facility] [place] [facility] [address] [facility] [id number], [place] [address] Apr, [facility] [address] [facility] [id number], [place] 383837084 Mar, [facility] [place] [facility] [address]00565100[place], [place] [address] Mar, [facility] [address] [facility] [id number], [place] [id number] Mar, [facility] [place] [facility] [address]00565100[place], [place] [address] Mar, [facility] [address] [facility] [id number], [place] [id number] Jan, [facility] [place] [facility] [address] [id number], [place] [address] Jan, [facility] [address] [facility] [id number], [place] [address]32627921 Dec, [facility] [place] [facility] [address] [facility] [id number], [place] [address] Dec, [facility] [address] [facility] [id number], [place] [id number] Dec, [facility] [place] [facility] [address] [facility] [id number] [place] [address] Dec, [facility] [address] [facility] [id number], [place] [id number] Dec, [facility] [place] [facility] [address] [facility] [id number], [place] [address] Dec, [facility] [address] [facility] [id number], [place] [id number] November, [facility] [place] [facility] [address] [facility] [id number], [place] [address] November, [facility] [address] [facility] [id number], [place] [id number] November, [facility] [place] [facility] [address] [facility] [id number], [place] [address] November, [facility] [address] [facility] [id number], [place] 704893469 Oct, [facility] [place] [facility] [address]00565100[place], [place] [address] Oct, [facility] [id number], [place] 737837705 Sep, [facility] [place] [facility] [address]00565100[place], [place] [address] Sep, [facility] [address] [id number], [place] 357120157 Sep, [facility] [place] [facility] [address]00565100[place], [place] [address] Sep, [facility] [address] [id number], [place] 698192061 Aug, [facility] [place] [facility] [address] [id number], [place] [address] Aug, [facility] [address] [facility] [id number], [place] 190019175 Aug, [facility] [place] [facility] [address] [facility] [id number], [place] [address] Aug, [facility] [place] [facility] [address] [id number], [place] [address] Jul, [facility] [address] [facility] [id number], [place] [id number] Jul, [facility] [address] [id number] [place] [id number] Jul, [facility] [address] [facility] [id number], [place] [address] Jul, [facility] [address] [id number] [place] [id number] Jul, [facility] [address] [facility] [id number], [place] [address] Jul, [facility] [address] [id number] [place] 044924884 Apr, [facility] [address] [facility] [id number], [place] [address] Apr, [facility] [address] [id number], [place] 734640076 Apr, [facility] [address] [id number], [place] 859600971 Mar, [facility] [address] [id number], [place] 942154831 Feb, [facility] [address] [facility] [id number], [place] [address] Feb, [facility] [address] [id number], [place] [id number] Jan, [facility] [address] [facility] [id number], [place] [address] Dec, [facility] [address] [id number], [place] [id number] Dec, [facility] [place] [facility] [address] [facility] [id number], [place] [address] Dec, [facility] [address] [id number] [place] 854192731 Dec, [facility] [address] [id number] [place] 020505939 November, [facility] [address] [id number], [place] 206494682 Sep, [facility] [address] [id number] [place] 105717263 Aug, [facility] [address] [id number] [place] [id number] Jul, [facility] [address] [id number] [place] 712345751 Jul, [facility] [address] [id number] [place] 437395815 Jun, [facility] [address] [facility] [id number], [place] [address] Jun, [facility] [address] [id number] [place] [id number] May, [facility] [address] [facility] [id number] [place] [address] May, [facility] [address] [id number], [place] 453961563 May, [facility] [address]00565100[place], [place] [address] May, [facility] [address] [facility] [id number], [place] [address] May, [facility] [address] [id number], [place] 903576742 Apr, [facility] [address] [id number], [place] [id number] Apr, [facility] [address]00565100[place], [place] [address] Apr, [facility] [address] [facility] [id number], [place] [address] Apr, [facility] [address] [id number], [place] 460535077 Mar, [facility] [address] [id number], [place] 491602471 Feb, [facility] [address] [id number], [place] 805110563 Feb, [facility] [address] [id number], [place] 895042856 Feb, [facility] [address] [facility] [id number], [place] 418396520 Jan, [facility] [address]00565100[place], [place] [address] Jan, [facility] [address] [id number], [place] [id number] Jan, [address] [id number], [place] 313646849 Jan, [address]00565100[place], [place] 130825008 Dec, [id number], [place] 351015973 Dec, IMMUNIZATIONS No Known Immunizations SOCIAL HISTORY Never Assessed REASON FOR VISIT EMR-[facility] [place] PLAN OF CARE VITAL SIGNS MEDICATIONS Unknown Medications RESULTS No Results PROCEDURES No Known procedures INSTRUCTIONS MEDICATIONS ADMINISTERED No Known Medications MEDICAL (GENERAL) HISTORY Type Description Date Medical History asthma Medical History anxiety Medical History osteoarthritis Surgical History tubal ligation 1992 Hospitalization History [facility] care for poison cesar November 2014 Hospitalization History right ankle fracture, has a brace on 12/2016
--- OUTSIDE RECORDS SUMMARY | 2019-02-10 12:40 | XMS REPORT ---
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 Active 765042419 Problem Cough 786.2 Active 75901719 Problem Asthma, unspecified, unspecified status 493.90 Active 61899986 Problem Acute upper respiratory infections of unspecified site 465.9 Active 72602967 Problem Nondependent tobacco use disorder 305.1 Active 192771708 Problem Episodic mood disorder F39 Active 83644365 Problem Sciatica 724.3 Active 77585021 Problem Mild intermittent asthma without complication J45.20 Active 709695863 Problem Lumbago 724.2 Active 860445196 Problem Anxiety state, unspecified 300.00 Active 863595088 Problem Unspecified episodic mood disorder 296.90 Active 678568342 Problem Pityriasis versicolor 111.0 Active 06627790 Problem Bilateral low back pain without sciatica M54.5 Active 781733416 ALLERGIES No Information ENCOUNTERS Encounter Location Date Diagnosis [facility] [address] [facility] [id number], [place] [address] November, Poison cesar dermatitis L23.7 and Itching L29.9 [facility] [address] [id number], [place] [id number] Sep, Irritant contact dermatitis due to plants, except food L24.7 [facility] [address] [facility] [id number], [place] [address] Sep, [facility] [address] [id number], [place] [address] Feb, Poison cesar L23.[address] [id number], [place] [id number] Feb, Closed fracture of right ankle with routine healing, subsequent encounter S82.891D [facility] [address] [id number][place] 9667177[address] Feb, Closed fracture of right ankle with routine healing, subsequent encounter S82.891D and Mild intermittent asthma without complication J45.20 [facility] [address] [id number], [place] [id number] Oct, [facility] [address] [id number] [place] [id number] Sep, Bilateral low back pain without sciatica M54.5 [facility] [address] [id number][place] [id number] Sep, [facility] [address] [id number] [place] [address] [id number] Aug, [facility] [address] [id number] [place] [address] [id number] Aug, [facility] [address]00565[address] [address] Aug, Encounter for other specified administrative purpose Z02.89 [facility] [id number], [place] [id number] Jul, Bilateral low back pain without sciatica M54.5 and Episodic mood disorder F39 [facility] [address] [id number], [place] [id number] Jun, [facility] [address] [id number], [place] [id number] Jun, [facility] [address] [id number], [place] [id number] Jun, [facility] [address] [id number], [place] [id number] Jun, [facility] [address] [id number], [place] [id number] May, [facility] [address] [id number], [place] 589487589 May, [facility] [address] [id number], [place] [id number] May, [facility] [address] [id number], [place] [id number] Apr, [facility] [address] [id number], [place] 483133151 Apr, Dental examination Z01.20 [facility] [address] [id number], [place] [id number] Apr, [facility] [address] [id number], [place] [id number] Apr, [facility] [address] [id number], [place] 980741406 Mar, Tobacco abuse disorder 305.1 [facility] [id number] [place] [address] [id number] Mar, Anxiety state, unspecified 300.00 [facility] [address] [facility] [address] [id number], [place] [address]92[address]4669 Mar, [facility] [address] [id number], [place] [id number] Feb, [facility] [address] [id number], [place] [id number] Feb, [facility] [address] [id number], [place] 756152681 Feb, Routine gynecological examination V72.31 ; Visit for gynecologic examination V72.31 ; Pap test, as part of routine gynecological examination V76.2 ; Breast cancer screening V76.10 and Vaginal leukorrhea 623.5 [facility] [address] [id number], [place] [id number] Feb, Lumbago 724.2 and Unspecified arthropathy, site unspecified 716.90 [facility] [address] [id number], [place] [id number] Feb, [facility] [address] [id number], [place] [id number] Feb, [facility] [address] [id number], [place] 264221816 Jan, Sciatica 724.3 and Anxiety state, unspecified 300.00 [facility] [address] [id number], [place] [id number] Dec, [facility] [address] [id number], [place] 266806195 Dec, Sciatica 724.3 and Anxiety state, unspecified 300.00 [facility] [address] [id number], [place] [id number] November, [facility] [id number] [place] [address] [id number] November, Sciatica 724.3 and Poison cesar 692.6 [facility] [place] [facility] [id number] [place] [address] Oct, [facility] [place] [facility] [id number] [place] [address] Oct, [facility] [place] [facility] [id number] [place] [address] Sep, [facility] [id number], [place] [id number] Sep, [facility] [place] [facility] [id number] [place] [address] Sep, [facility] [id number], [place] 119087855 Aug, [facility] [place] [facility] [address]00565100[place], [place] [address] Aug, [facility] [id number], [place] 284347917 Jul, [facility] [place] [facility] [address]00565100[place], [place] [address] Jul, [facility] [id number], [place] [id number] Jul, [facility] [place] [facility] [address]00565100[place], [place] [address] Jul, [facility] [place] [facility] [address]00565100[place], [place] [address] Jun, [facility] [address] [id number], [place] [id number] Jun, [facility] [place] [facility] [address] [facility] [id number], [place] [address] Jun, [facility] [place] [facility] [address] [facility] [id number], [place] [address] May, [facility] [address] [facility] [id number] [place] [id number] May, [facility] [address] [facility] [id number], [place] [id number] Apr, [facility] [place] [facility] [address] [facility] [id number], [place] [address] Apr, [facility] [address] [facility] [id number], [place] 036183114 Mar, [facility] [place] [facility] [address]00565100[place], [place] [address] Mar, [facility] [address] [facility] [id number], [place] 860400999 Mar, [facility] [place] [facility] [address]00565100[place], [place] [address] Mar, [facility] [address] [facility] [id number], [place] [id number] Jan, [facility] [place] [facility] [address] [id number], [place] [address] Jan, [facility] [address] [facility] [id number], [place] 323318020 Dec, [facility] [place] [facility] [address] [facility] [id number], [place] [address] Dec, [facility] [address] [facility] [id number], [place] [id number] Dec, [facility] [place] [facility] [address] [facility] [id number] [address] Dec, [facility] [address] [facility] [id number], [place] 480259335 Dec, [facility] [place] [facility] [address] [facility] [id number], [place] [address] Dec, [facility] [address] [facility] [id number], [place] 615763057 November, [facility] [place] [facility] [address] [facility] [id number], [place] [address] November, [facility] [address] [facility] [id number], [place] 048003566 November, [facility] [place] [facility] [address] [facility] [id number], [place] [address] November, [facility] [address] [facility] [id number], [place] [id number] Oct, [facility] [place] [facility] [address]00565100[place], [place] [address] Oct, [facility] [id number], [place] 894146109 Sep, [facility] [place] [facility] [address]00565100[place], [place] [address] Sep, [facility] [address] [id number], [place] 358105579 Sep, [facility] [place] [facility] [address]00565100[place], [place] [address] Sep, [facility] [address] [id number], [place] 454213490 Aug, [facility] [place] [facility] [address] [id number] [address] Aug, [facility] [address] [facility] [id number], [place] [id number] Aug, [facility] [facility] [address] [facility] [id number], [place] [address] Aug, [facility] [place] [facility] [address] [id number], [place] [address] Jul, [facility] [address] [facility] [id number], [place] 845692179 Jul, [facility] [address] [id number] [place] [id number] Jul, [facility] [address] [facility] [id number], [place] [address] Jul, [facility] [address] [id number] [place] 379665640 Jul, [facility] [address] [facility] [id number], [place] [address] Jul, [facility] [address] [id number] [place] [id number] Apr, [facility] [address] [facility] [id number], [place] [address] Apr, [facility] [address] [id number], [place] 379249897 Apr, [facility] [address] [id number], [place] 292953120 Mar, [facility] [address] [id number], [place] [id number] Feb, [facility] [address] [facility] [id number], [place] [address] Feb, [facility] [address] [id number], [place] [id number] Jan, [facility] [address] [facility] [id number], [place] [address] Dec, [facility] [address] [id number], [place] 177436028 Dec, [facility] [address] [facility] [id number], [place] [address] Dec, [facility] [address] [id number] [place] 646108590 Dec, [facility] [address] [id number] [place] 736187226 November, [facility] [address] [id number], [place] 623367276 Sep, [facility] [address] [id number] [place] 076687735 Aug, [facility] [address] [id number] [place] 456755892 Jul, [facility] [address] [id number] [place] [id number] Jul, [facility] [address] [id number] [place] 020297186 Jun, [facility] [address] [facility] [id number], [place] [address] Jun, [facility] [address] [id number] [place] 839180624 May, [facility] [address] [facility] [id number] [place] [address] May, [facility] [address] [id number], [place] [id number] May, [facility] [address]00565100[place] [address] May, [facility] [address] [facility] [id number], [place] [address] May, [facility] [address] [id number], [place] 447776574 Apr, [facility] [address] [id number], [place] 396664709 Apr, [facility] [address]00565100[place] [address] Apr, [facility] [address] [facility] [id number], [place] [address] Apr, [facility] [address] [id number], [place] 650937105 Mar, [facility] [address] [id number], [place] 526190706 Feb, [facility] [address] [id number], [place] 475800152 Feb, [facility] [address] [id number], [place] 167438317 Feb, [facility] [address] [facility] [id number], [place] 526940037 Jan, [facility] [address]00565100[place] 796513346 Jan, [facility] [address] [id number], [place] 280053588 Jan, [id number] 720[address]1138 Jan, [address]00565100[place], [place] 688580636 Dec, [id number] 168824577 Dec, IMMUNIZATIONS No Known Immunizations SOCIAL HISTORY Never Assessed REASON FOR VISIT EMR-[facility] PLAN OF CARE VITAL SIGNS MEDICATIONS Unknown Medications RESULTS No Results PROCEDURES No Known procedures INSTRUCTIONS MEDICATIONS ADMINISTERED No Known Medications MEDICAL (GENERAL) HISTORY Type Description Date Medical History asthma Medical History anxiety Medical History osteoarthritis Surgical History tubal ligation 1992 Hospitalization History [facility] care for poison cesar November 2014 Hospitalization History right ankle fracture, has a brace on 12/2016
--- OUTSIDE RECORDS SUMMARY | 2019-02-10 12:41 | XMS REPORT ---
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.90 Active 592271619 Problem Lumbago 724.2 Active 074139981 Problem Sciatica 724.3 Active 48154938 Problem Mild intermittent asthma without complication J45.20 Active 562468700 Problem Episodic mood disorder F39 Active 70939542 Problem Unspecified episodic mood disorder 296.90 Active 524253540 Problem Anxiety state, unspecified 300.00 Active 473985638 Problem Bilateral low back pain without sciatica M54.5 Active 698666787 Problem Pityriasis versicolor 111.0 Active 97616153 ALLERGIES Substance Reaction Event Type Date Status Tramadol headaches Drug Allergy Sep, Active ENCOUNTERS Encounter Location Date Diagnosis [facility] [address] [id number] [address] November, Poison cesar dermatitis L23.7 and Itching L29.9 [facility] [address] [facility] [id number][place] [id number] Sep, Irritant contact dermatitis due to plants, except food L24.7 [facility] [address] [facility] [id number] [address] Sep, [facility] [address] [id number] [address] Feb, Poison cesar L23.7 [facility] [address] [id number] [place] [address] Feb, Closed fracture of right ankle with routine healing, subsequent encounter S82.891D [facility] [id number] [id number] Feb, Closed fracture of right ankle with routine healing, subsequent encounter S82.891D and Mild intermittent asthma without complication J45.20 [facility] [id number][place] [address] Oct, [facility] [id number] [place] [id number] Sep, Bilateral low back pain without sciatica M54.5 [facility] [id number] [place] [id number] Sep, [facility] [id number] [place] [address] [id number] Aug, [facility] [id number] [place] [id number] Aug, [facility] [address] [id number] [id number] Aug, Encounter for other specified administrative purpose Z02.89 [facility] [address]00565100[place] [id number] Jul, Bilateral low back pain without sciatica M54.5 and Episodic mood disorder F39 [facility] [address]00565100[place] [id number] Jun, [facility] [address]00565100[place] [id number] Jun, [facility] [address] [id number] [place] [id number] Jun, [facility] [address] [id number] [place] [id number] Jun, [facility] [address] [id number] CITY[place] [id number] May, [facility] [address] [id number] [place] [id number] May, [facility] [address] [id number] [place] [address] May, [facility] [address] [id number], [place] [id number] Apr, [facility] [address] [id number] [place] [id number] Apr, Dental examination Z01.20 [facility] [address] [id number], [place] [id number] Apr, [facility] [address] [id number], [place] [id number] Apr, [facility] [address] [id number], [place] [id number] Mar, Tobacco abuse disorder 305.1 [facility] [address] [id number], [place] [address] Mar, Anxiety state, unspecified 300.00 [facility] [address] [facility] [address] [id number] [place] [id number] Mar, [facility] [address] [id number], [place] [id number] Feb, [facility] [address] [id number], [place] [id number] Feb, [facility] [address] [id number], [place] [id number] Feb, Routine gynecological examination V72.31 ; Visit for gynecologic examination V72.31 ; Pap test, as part of routine gynecological examination V76.2 ; Breast cancer screening V76.10 and Vaginal leukorrhea 623.5 [facility] [address] [id number], [place] 533[address]562 Feb, Lumbago 724.2 and Unspecified arthropathy, site unspecified 716.90 [facility] [address] [id number], [place] 8[address]479937 Feb, [facility] [address] [id number], [place] [id number] Feb, [facility] [address] [id number], [place] 113177856 Jan, Sciatica 724.3 and Anxiety state, unspecified 300.00 [facility] [id number] [place] [id number] Dec, [facility] [address] [id number], [place] [address] Dec, Sciatica 724.3 and Anxiety state, unspecified 300.00 [facility] [id number], [place] [id number] November, [facility] [id number], [place] [address] November, Sciatica 724.3 and Poison cesar 692.6 [facility] [id number] [place] [address] Oct, [facility] [id number] [place] [place] [address] Oct, [facility] [id number] [place] [address] Sep, [facility] [id number], [place] [id number] Sep, [facility] [id number] [place] [address] Sep, [facility] [id number], [place] [id number] Aug, [facility] [id number] [place] [address] Aug, [facility] [id number], [place] [id number] Jul, [facility] [id number] [place] [address] Jul, [facility] [id number], [place] [id number] Jul, [facility] [id number] [place] [address] Jul, [facility] [place] [facility] [address] [id number] [place] [address] Jun, [facility] [address] [id number] [place] [id number] Jun, [facility] [place] [facility] [address] [facility] [id number] [place] [address] Jun, [facility] [place] [facility] [address] [facility] [id number] [place] [address] May, [facility] [address] [id number] [place] [address] May, [facility] [address] [id number] [place] [address]40598067 Apr, [facility] [place] [facility] [address] [id number] [address] Apr, [facility] [address] [id number] [place] 6[address]16[address] Mar, [facility] [place] [facility] [address] [facility] [id number] [place] [address] Mar, [facility] [address] [id number] [place] [id number] Mar, [facility] [place] [facility] [address] [facility] [id number] [place] [address] Mar, [facility] [address] [id number] [place] [address]33[address]16[address] Jan, [facility] [place] [facility] [address] [facility] [id number] [place] [address] Jan, [facility] [address] [id number] [place] [address] Dec, [facility] [place] [facility] [address] [facility] [id number] [place] [address] Dec, [facility] [address] [facility] [id number] [place] [address]45[address] Dec, [facility] [place] [facility] [address] [facility] [id number] [place] [address] Dec, [facility] [address] [id number] [place] 803[address] Dec, [facility] [place] [facility] [address] [facility] [id number] [place] [address] Dec, [facility] [address] [id number] [place] [id number] November, [facility] [place] [facility] [address] [facility] [id number] [place] [address] November, [facility] [address] [id number] [place] [id number] November, [facility] [place] [facility] [address] [facility] [id number] [place] [address] November, [facility] [address] [facility] [id number] [place] 905637[address] Oct, [facility] [place] [facility] [address]00565100[place] [address] Oct, [facility] [address] [facility] [id number] [place] [address]10[address] Sep, [facility] [place] [facility] [address] [id number] [address] Sep, [facility] [address] [facility] [id number] [place] [address] Sep, [facility] [place] [facility] [address] [id number] [address] Sep, [facility] [address] [facility] [id number], [place] [id number] Aug, [facility] [place] [facility] [address] [facility] [id number] [place] [address] Aug, [facility] [address] [facility] [id number] [place] 6158389[address] Aug, [facility] [place] [facility] [address] [id number] [place] [address] Aug, [facility] [place] [facility] [address] [facility] [id number] [place] [address] Jul, [facility] [address] [id number] [place] [id number] Jul, [facility] [address] [id number] [place] [id number] Jul, [facility] [place] [facility] [address] [facility] [id number] [place] [address] Jul, [facility] [address] [id number] [place] 130095144 Jul, [facility] [place] [facility] [address] [facility] [id number] [place] [address] Jul, [facility] [address] [id number] [place] [id number] Apr, [facility] [place] [facility] [address] [address] Apr, [facility] [address] [id number] [place] [id number] Apr, [facility] [address] [id number] [place] 704164963 Mar, [facility] [address] [id number] [place] [id number] Feb, [facility] [place] [facility] [address] [facility] [id number] [place] [address] Feb, [facility] [address] [facility] [id number], [place] 645440425 Jan, [facility] [place] [facility] [address] [facility] [id number] [place] [address] Dec, [facility] [address] [id number] [place] [id number] Dec, [facility] [place] [facility] [address] [facility] [id number] [place] [address] Dec, [facility] [address] [id number] [place] 699408950 Dec, [facility] [address] [facility] [id number] [place] [id number] November, [facility] [address] [id number], [place] [id number] Sep, [facility] [address] [id number] [place] 910339493 Aug, [facility] [address] [id number] [place] 2459720[address] Jul, [facility] [address] [id number], [place] [id number] Jul, [facility] [address] [id number], [place] 782243515 Jun, [facility] [address] [facility] [id number] [place] [address] Jun, [facility] [address] [id number], [place] [id number] May, [facility] [address]65100[place] [address] May, [facility] [address] [id number], [place] [id number] May, [facility] [address]100[place] [address] May, [facility] [place] [facility] [id number] [place] [address] May, [facility] [address] [id number], [place] [id number] Apr, [facility] [address] [id number], [place] 985762280 Apr, [facility] [place] [facility] [address] [facility] [id number] [place] [address] Apr, [facility] [place] [facility] [address] [facility] [id number] [place] [address] Apr, [facility] [address] [id number], [place] 141775037 Mar, [facility] [address] [id number], [place] [id number] Feb, [facility] [address] [id number] [place] 147[address] Feb, [facility] [address] [id number] [place] [id number] Feb, [facility] [address] [id number], [place] 615603344 Jan, [facility] [address] [id number], [place] [id number] Jan, [facility] [address] [id number], [place] 319220749 Jan, [facility] [address] [id number], [place] [id number] Jan, [facility] [address] [id number], [place] [id number] Dec, [facility] [address] [id number], [place] [id number] Dec, IMMUNIZATIONS No Known Immunizations SOCIAL HISTORY Never Assessed REASON FOR VISIT Rash--ABDIAS ivy PLAN OF CARE Activity Details Follow Up prn Reason: VITAL SIGNS Height 62.5 in 2017-10-26 Weight 158.4 lbs 2017-10-26 Temperature 97.6 degrees Fahrenheit 2017-10-26 Heart Rate 86 bpm 2017-10-26 Respiratory Rate 16 2017-10-26 BMI 28.51 kg/m2 2017-10-26 Blood pressure systolic 130 mmHg 2017-10-26 Blood pressure diastolic 68 mmHg 2017-10-26 MEDICATIONS Medication Instructions Dosage Frequency Start Date End Date Duration Status Triamcinolone Acetonide 0.1 % Externally Twice a day 1 application to affected area Sep, Active Ibuprofen 800 MG Orally Three times a day 1 tablet with food or milk as needed 8h Sep, Active Xanax 0.5 MG Orally Twice a day 1 tablet 12h Jul, Active Ibuprofen 800 MG Orally 3 times a day Take with food 1 tablet PRN Not-Taking Hydrocodone-Acetaminophen 5-325 MG Orally 2 times a day. Must last month. 1 Tablet Sep, Active Albuterol Sulfate HFA 108 (90 Base) mcg/act Inhalation 4 times a day 2 puffs as needed 6h Feb, Not-Taking ProAir HFA 108 (90 Base) MCG/ACT Inhalation every 4-6 hrs for cough/SOB 2 puffs as needed Sep, Active RESULTS No Results PROCEDURES No Known procedures INSTRUCTIONS MEDICATIONS ADMINISTERED No Known Medications MEDICAL (GENERAL) HISTORY Type Description Date Medical History asthma Medical History anxiety Medical History osteoarthritis Surgical History tubal ligation 1992 Hospitalization History [facility] poison cesar November 2014 Hospitalization History right ankle fracture, has a brace on 12/2016
--- OUTSIDE RECORDS SUMMARY | 2019-02-10 12:41 | XMS REPORT ---
Author Author Migration, Doctor Organization [facility] Address Unknown Phone Unavailable Care Team Providers Care Eligibility Analyst Name Role Phone Migration, Doctor Unavailable Unavailable PROBLEMS Type Condition ICD9-CM Code OYC78-ZB Code Onset Dates Condition Status SNOMED Code Problem Unspecified arthropathy, site unspecified 716.90 Active 831750993 Problem Cough 786.2 Active 55305898 Problem Asthma, unspecified, unspecified status 493.90 Active 05747598 Problem Acute upper respiratory infections of unspecified site 465.9 Active 85363695 Problem Nondependent tobacco use disorder 305.1 Active 090764568 Problem Episodic mood disorder F39 Active 13034087 Problem Sciatica 724.3 Active 00393056 Problem Mild intermittent asthma without complication J45.20 Active 010823034 Problem Lumbago 724.2 Active 253277011 Problem Anxiety state, unspecified 300.00 Active 674303290 Problem Unspecified episodic mood disorder 296.90 Active 055338036 Problem Pityriasis versicolor 111.0 Active 29030037 Problem Bilateral low back pain without sciatica M54.5 Active 528312640 ALLERGIES No Information ENCOUNTERS Encounter Location Date Diagnosis [facility] [address] [facility] [id number] [place] [address] November, Poison cesar dermatitis L23.7 and Itching L29.9 [facility] [address] [id number] [place] [id number] Sep, Irritant contact dermatitis due to plants, except food L24.7 [facility] [address] [facility] [id number] [place] [address] Sep, [facility] [address] [id number] [address] Feb, Poison cesar L23.[address] [id number][place] [id number] Feb, Closed fracture of right ankle with routine healing, subsequent encounter S82.891D [facility] [address] [id number] [place] [id number] Feb, Closed fracture of right ankle with routine healing, subsequent encounter S82.891D and Mild intermittent asthma without complication J45.20 [facility] [address] [id number] [place] [id number] Oct, [facility] [address] [id number] [place] [address] [id number] Sep, Bilateral low back pain without sciatica M54.5 [facility] [address] [id number] [place] [address] Sep, [facility] [address] [id number] [place] [address] [id number] Aug, [facility] [address] [id number] [place] [id number] Aug, [facility] [address] [id number] Aug, Encounter for other specified administrative purpose Z02.89 [facility] [id number] [place] [address] Jul, Bilateral low back pain without sciatica M54.5 and Episodic mood disorder F39 [facility] [address] [id number] [place] [address] Jun, [facility] [address] [id number] [place] [address] Jun, [facility] [address] [id number], [place] [id number] Jun, [facility] [address] [id number][place] [address] Jun, [facility] [address] [id number], [place] [address] May, [facility] [address] [id number], [place] [id number] May, [facility] [address] [id number], [place] [address] May, [facility] [address] [id number] [place] [id number] Apr, [facility] [address] [id number] [place] [id number] Apr, Dental examination Z01.20 [facility] [address] [id number] [place] [address] Apr, [facility] [address] [id number] [place] [id number] Apr, [facility] [address] [id number] [place] [id number] Mar, Tobacco abuse disorder 305.1 [facility] [address] [id number] [place] [address] [id number] Mar, Anxiety state, unspecified 300.00 [facility] [address] [facility] [address] [id number][place] [id number] Mar, [facility] [address] [id number] [place] [id number] Feb, [facility] [address] [id number] [place] [id number] Feb, [facility] [address] [id number] [place] [address] Feb, Routine gynecological examination V72.31 ; Visit for gynecologic examination V72.31 ; Pap test, as part of routine gynecological examination V76.2 ; Breast cancer screening V76.10 and Vaginal leukorrhea 623.5 [facility] [address] [id number] [place] [id number] Feb, Lumbago 724.2 and Unspecified arthropathy, site unspecified 716.90 [facility] [address] [id number] [place] 68[address] Feb, [facility] [address] [id number] [place] 139[address] Feb, [facility] [address] [id number] [place] 70[address] Jan, Sciatica 724.3 and Anxiety state, unspecified 300.00 [facility] [address] [id number] [place] [address] Dec, [facility] [address] [id number] [place] [address] Dec, Sciatica 724.3 and Anxiety state, unspecified 300.00 [facility] [address] [id number] [place] [id number] November, [facility] [id number] [place] [address] [id number] November, Sciatica 724.3 and Poison cesar 692.6 [facility] [place] [facility] [id number] [place] [address] Oct, [facility] [place] [facility] [id number] [place] [address] Oct, [facility] [place] [facility] [id number] [place] [address] Sep, [facility] [id number] [place] [address] Sep, [facility] [place] [facility] [id number] [place] [address] Sep, [facility] [id number] [place] [address] Aug, [facility] [place] [facility] [address]65100[place] [address] Aug, [facility] [id number] [place] [id number] Jul, [facility] [place] [facility] [address]65[address] [address] Jul, [facility] [id number] [place] [id number] Jul, [facility] [place] [facility] [address] [address] Jul, [facility] [place] [facility] [address]65100[place] [address] Jun, [facility] [address] [id number] [place] [id number] Jun, [facility] [place] [facility] [address] [facility] [id number] [place] [address] Jun, [facility] [place] [facility] [address] [facility] [id number] [place] [address] May, [facility] [address] [facility] [id number] [place] [id number] May, [facility] [address] [facility] [id number] [place] 739[address] Apr, [facility] [place] [facility] [address] [facility] [id number] [place] [address] Apr, [facility] [address] [facility] [id number] [place] [id number] Mar, [facility] [place] [facility] [address] [address] Mar, [facility] [address] [facility] [id number] [place] [address] Mar, [facility] [place] [facility] [address]65100[place] [address] Mar, [facility] [address] [facility] [id number] [place] [id number] Jan, [facility] [place] [facility] [address] [id number] [address] Jan, [facility] [address] [facility] [id number] [place] 831129977 Dec, [facility] [place] [facility] [address] [facility] [id number] [place] [address] Dec, [facility] [address] [facility] [id number] [place] [id number] Dec, [facility] [place] [facility] [address] [facility] [id number] [place] [address] Dec, [facility] [address] [facility] [id number] [place] [address] Dec, [facility] [place] [facility] [address] [facility] [id number] [place] [address] Dec, [facility] [address] [facility] [id number] [place] 737[address] November, [facility] [place] [facility] [address] [facility] [id number] [place] [address] November, [facility] [address] [facility] [id number] [place] [id number] November, [facility] [place] [facility] [address] [facility] [id number] [place] [address] November, [facility] [address] [facility] [id number] [place] [id number] Oct, [facility] [place] [facility] [address] [address] Oct, [facility] [id number] [place] [id number] Sep, [facility] [place] [facility] [address] [address] Sep, [facility] [address] [id number] [place] 5017[address]886 Sep, [facility] [place] [facility] [address] [address] Sep, [facility] [address] [id number] [place] [address]16008142 Aug, [facility] [place] [facility] [address] [id number] [address] Aug, [facility] [address] [facility] [id number] [place] 920332643 Aug, [facility] [place] [facility] [address] [facility] [id number] [place] [address] Aug, [facility] [place] [facility] [address] [id number] [address] Jul, [facility] [address] [facility] [id number] [place] 116941471 Jul, [facility] [address] [id number] [place] [address] Jul, [facility] [address] [facility] [id number] [place] [address] Jul, [facility] [address] [id number] [place] [id number] Jul, [facility] [address] [facility] [id number] [place] [address] Jul, [facility] [address] [id number] [place] [id number] Apr, [facility] [address] [facility] [id number] [place] [address] Apr, [facility] [address] [id number] [place] 177046637 Apr, [facility] [address] [id number] [place] 448837690 Mar, [facility] [address] [id number] [place] 3466[address] Feb, [facility] [address] [facility] [id number] [place] [address] Feb, [facility] [address] [id number] [place] 370603142 Jan, [facility] [address] [facility] [id number] [place] [address] Dec, [facility] [address] [id number] [place] [id number] Dec, [facility] [place] [facility] [address] [facility] [id number] [place] [address] Dec, [facility] [address] [id number] [place] [id number] Dec, [facility] [address] [id number] [place] [id number] November, [facility] [address] [id number] [place] 9662979[address] Sep, [facility] [address] [id number] [place] [address] Aug, [facility] [address] [id number] [place] [address] Jul, [facility] [address] [id number] [place] 385[address] Jul, [facility] [address] [id number] [place] [address] Jun, [facility] [address] [facility] [id number] [place] [address] Jun, [facility] [address] [id number] [place] [address] May, [facility] [address] [facility] [id number] [place] [address] May, [facility] [address] [id number] [place] 0543[address] May, [facility] [address] [address] May, [facility] [address] [facility] [id number] [place] [address] May, [facility] [address] [id number] [place] 986[address] Apr, [facility] [address] [id number] [place] 69[address]396 Apr, [facility] [address] [address] Apr, [facility] [address] [facility] [id number] [place] [address] Apr, [facility] [address] [id number] [place] 166268516 Mar, [facility] [address] [id number] [place] 75[address] Feb, [facility] [address] [id number] [place] 844129617 Feb, [facility] [address] [id number] [place] [id number] Feb, [facility] [address] [facility] [id number] [place] [id number] Jan, [facility] [address]005[address]100[place] [address] Jan, [facility] [address] [id number] [place] 688[address]69[address] Jan, [id number] [address] Jan, [address]00565100[place] [address] Dec, [id number] 115[address]878 Dec, IMMUNIZATIONS No Known Immunizations SOCIAL HISTORY Never Assessed REASON FOR VISIT EMR-[facility] PLAN OF CARE VITAL SIGNS MEDICATIONS Unknown Medications RESULTS No Results PROCEDURES No Known procedures INSTRUCTIONS MEDICATIONS ADMINISTERED No Known Medications MEDICAL (GENERAL) HISTORY Type Description Date Medical History asthma Medical History anxiety Medical History osteoarthritis Surgical History tubal ligation 1992 Hospitalization History [facility] care for poison cesar November 2014 Hospitalization History right ankle fracture, has a brace on 12/2016
--- OUTSIDE RECORDS SUMMARY | 2019-02-10 12:41 | XMS REPORT ---
Author Author GLORIA GRUBER [facility] Address [address] [place] [address] Care Team Providers Care News Producer Name Role Phone JUANITA GREGORIOGLORIA GUZMAN Unavailable PROBLEMS Type Condition ICD9-CM Code CJK35-ID Code Onset Dates Condition Status SNOMED Code Problem Asthma, unspecified, unspecified status 493.90 Active 04917554 Problem Nondependent tobacco use disorder 305.1 Active 248653014 Problem Acute upper respiratory infections of unspecified site 465.9 Active 16139032 Problem Cough 786.2 Active 37621230 Problem Unspecified arthropathy, site unspecified 716.90 Active 516630058 Problem Lumbago 724.2 Active 177836402 Problem Sciatica 724.3 Active 38411345 Problem Mild intermittent asthma without complication J45.20 Active 317278897 Problem Episodic mood disorder F39 Active 96565815 Problem Unspecified episodic mood disorder 296.90 Active 126313785 Problem Anxiety state, unspecified 300.00 Active 604718678 Problem Bilateral low back pain without sciatica M54.5 Active 321252293 Problem Pityriasis versicolor 111.0 Active 15126719 ALLERGIES Substance Reaction Event Type Date Status Tramadol headaches Drug Allergy November, Active ENCOUNTERS Encounter Location Date Diagnosis [facility] [address] [id number], [place] [address] November, Poison cesar dermatitis L23.7 and Itching L29.9 [facility] [address] [id number] [id number] Sep, Irritant contact dermatitis due to plants, except food L24.7 [facility] [address] [facility] [id number], [place] [address] Sep, [facility] [address] [id number], [place] [address] Feb, Poison cesar L23.7 [facility] [address] [address] [id number] [place] [phone] Feb, Closed fracture of right ankle with routine healing, subsequent encounter S82.891D [facility] [place] [id number], [place] [id number] Feb, Closed fracture of right ankle with routine healing, subsequent encounter S82.891D and Mild intermittent asthma without complication J45.20 [facility] [place] [id number], [place] [id number] Oct, [facility] [id number] [place] [id number] Sep, Bilateral low back pain without sciatica M54.5 [facility] [place] [id number] [place] [id number] Sep, [facility] [id number] [place] [id number] Aug, [facility] [id number] [place] [id number] Aug, [facility] [address] [id number] [id number] Aug, Encounter for other specified administrative purpose Z02.89 [facility] [address] [id number] Jul, Bilateral low back pain without sciatica M54.5 and Episodic mood disorder F39 [facility] [address]100[place] [id number] Jun, [facility] [address]65100[place] [id number] Jun, [facility] [address] [id number] [place] [phone] Jun, [facility] [address] [id number] [place], [place] [phone] Jun, [facility] [address] [id number] [place] [phone] May, [facility] [address] [id number] [place], [place] [id number] May, [facility] [address] [facility] [address] [id number] [place] [phone] May, [facility] [address] [id number], [place] [address] Apr, [facility] [address] [id number], [place] [id number] Apr, Dental examination Z01.20 [facility] [place] [address] [id number], [place] [id number] Apr, [facility] [place] [address] [id number], [place] [phone] Apr, [facility] [place] [address] [id number], [place] [phone] Mar, Tobacco abuse disorder 305.1 [facility] [place] [address] [id number], [place] [id number] Mar, Anxiety state, unspecified 300.00 [facility] Campbell[address] [facility] [address] [id number] DAM, [place] [phone] Mar, [facility] [place] [address] [id number], [place] [id number] Feb, [facility] [place] [address] [id number], [place] [phone] Feb, [facility] [address] [id number], [place] [address] Feb, Routine gynecological examination V72.31 ; Visit for gynecologic examination V72.31 ; Pap test, as part of routine gynecological examination V76.2 ; Breast cancer screening V76.10 and Vaginal leukorrhea 623.5 [facility] [place] [address] [id number], [place] [id number] Feb, Lumbago 724.2 and Unspecified arthropathy, site unspecified 716.90 [facility] [place] [address] [id number], [place] [id number] Feb, [facility] [place] [address] [id number], [place] [phone] Feb, [facility] [address] [id number], [place] [id number] Jan, Sciatica 724.3 and Anxiety state, unspecified 300.00 [facility] [address] [id number], [place] [address] Dec, [facility] [address] [id number], [place] [phone] Dec, Sciatica 724.3 and Anxiety state, unspecified 300.00 [facility] [address] [id number], [place] [phone] November, [facility] [id number] [place] [id number] November, Sciatica 724.3 and Poison cesar 692.6 [facility] [id number] [place] [address] Oct, [facility] [id number] [place] [address] Oct, [facility] [id number] [place] [address] Sep, [facility] [id number], [place] [id number] Sep, [facility] [id number] [place] [address] Sep, [facility] [id number], [place] [id number] Aug, [facility] [address] [place] [address] Aug, [facility] [id number], [place] [id number] Jul, [facility] [id number] [place] [address] Jul, [facility] [address] [id number], [place] [id number] Jul, [facility] [id number] [place] [address] Jul, [facility] [place] [facility] [address] [id number] [place] [address] Jun, [facility] [address] [id number] [place] [id number] Jun, [facility] [place] [facility] [id number] [address] Jun, [facility] [place] [facility] [address] [facility] [id number], [place] [address] May, [facility] [address] [id number] [place] [phone] May, [facility] [address] [id number] [place] [phone] Apr, [facility] [place] [facility] [address]00565100[place], [place] [address] Apr, [facility] [address] [facility] [id number] [place] [id number] Mar, [facility] [place] [facility] [address] [facility] [id number], [place] [address] Mar, [facility] [address] [facility] [id number] [place] [id number] Mar, [facility] [place] [facility] [address] [facility] [id number], [place] [address] Mar, [facility] [address] [facility] [id number] [place] [id number] Jan, [facility] [place] [facility] [address] [facility] [id number], [place] [address] Jan, [facility] [address] [id number] [place] [id number] Dec, [facility] [place] [facility] [address] [facility] [id number], [place] [address] Dec, [facility] [address] [facility] [id number] [place] [id number] Dec, [facility] [place] [facility] [address] [facility] [id number], [place] [address] Dec, [facility] [address] [id number] [place] [id number] Dec, [facility] [place] [facility] [address] [facility] [id number], [place] [address] Dec, [facility] [address] [facility] [id number] [place] [id number] November, [facility] [place] [facility] [address] [facility] [id number], [place] [address] November, [facility] [address] [facility] [id number] [place] [id number] November, [facility] [place] [facility] [address] [id number], [place] [address] November, [facility] [address] [id number] [place] [id number] Oct, [facility] [place] [facility] [address]00565100[place], [place] [address] Oct, [facility] [address] [facility] [id number], [place] [id number] Sep, [facility] [place] [facility] [address]00565100[place], [place] [address] Sep, [facility] [address] [facility] [id number], [place] [phone] Sep, [facility] [place] [facility] [address] [id number], [place] [address] Sep, [facility] [address] [facility] [id number], [place] [id number] Aug, [facility] [place] [facility] [address] [facility] [id number], [place] [address] Aug, [facility] [address] [facility] [id number], [place] [id number] Aug, [facility] [place] [facility] [address] [facility] [id number], [place] [address] Aug, [facility] [place] [facility] [address] [id number], [place] [address] Jul, [facility] [address] [id number] [place] [id number] Jul, [facility] [address] [id number] [place] [id number] Jul, [facility] [place] [facility] [address] [facility] [id number], [place] [address] Jul, [facility] [address] [id number] [place] [id number] Jul, [facility] [place] [facility] [address] [facility] [id number], [place] [address] Jul, [facility] [address] [id number] [place] [id number] Apr, [facility] [place] [facility] [address] [facility] [id number], [place] [address] Apr, [facility] [address] [id number], [place] [id number] Apr, [facility] [address] [id number], [place] [id number] Mar, [facility] [address] [id number], [place] [id number] Feb, [facility] [place] [facility] [address] [facility] [id number], [place] [address] Feb, [facility] [address] [id number], [place] [id number] Jan, [facility] [place] [facility] [address] [facility]] [id number], [place] [address] Dec, [facility] [address] [id number], [place] [phone] Dec, [facility] [place] [facility] [address] [facility] [id number], [place] [address] Dec, [facility] [address] [id number], [place] [id number] Dec, [facility] [address] [id number], [place] [id number] November, [facility] [address] [id number] [place] [id number] Sep, [facility] [address] [id number] [place] [id number] Aug, [facility] [address] [id number] [place] [id number] Jul, [facility] [address] [id number] [place] [id number] Jul, [facility] [address] [id number] [place] [id number] Jun, [facility] [address] [facility] [id number], [place] [address] Jun, [facility] [address] [id number], [place] [id number] May, [facility] [place] [facility] [address]00565[address], [place] [address] May, [facility] [address] [id number], [place] [id number] May, [facility] [place] [facility] [address] [place] [address] May, [facility] [place] [facility] [address] [id number], [place] [address] May, [facility] [address] [id number], [place] [id number] Apr, [facility] [address] [id number], [place] [id number] Apr, [facility] [place] [facility] [address] [facility] [id number], [place] [address] Apr, [facility] [place] [facility] [address] [facility] [id number], [place] [address] Apr, [facility] [address] [id number], [place] 644233594 Mar, [facility] [address] [id number], [place] 677331594 Feb, [facility] [address] [id number], [place] [id number] Feb, [facility] [address] [id number], [place] [id number] Feb, [facility] [address] [id number] [place] [id number] Jan, [facility] [address] [id number], [place] [id number] Jan, [facility] [address] [id number], [place] 5095[address]373 Jan, [facility] [address] [id number], [place] [id number] Jan, [facility] [address] [id number], [place] [id number] Dec, [facility] [address] [id number], [place] [address]14 Dec, IMMUNIZATIONS Vaccine Route Administration Date Status SOLUMEDROL (UP TO 125 MG) IM Intramuscular December 15, 2017 Administered SOCIAL HISTORY Never Assessed REASON FOR VISIT rash on abdomen, face, inner thighs, et arms for 5 days. reports itching. rico rdrn PLAN OF CARE Activity Details Follow Up prn Reason: VITAL SIGNS Height 62.5 in 2017-12-15 Weight 164.6 lbs 2017-12-15 Temperature 98.0 degrees Fahrenheit 2017-12-15 Heart Rate 88 bpm 2017-12-15 Respiratory Rate 20 2017-12-15 BMI 29.62 kg/m2 2017-12-15 Blood pressure systolic 124 mmHg 2017-12-15 Blood pressure diastolic 74 mmHg 2017-12-15 MEDICATIONS Medication Instructions Dosage Frequency Start Date End Date Duration Status Triamcinolone Acetonide 0.1 % Externally Twice a day 1 application to affected area 12h Sep, Not-Taking Ibuprofen 800 MG Orally Three times a day 1 tablet with food or milk as needed 8h Sep, Not-Taking Xanax 0.5 MG Orally Twice a day 1 tablet 12h 13 Jul, 2014 Not-Taking PredniSONE 5 MG (21) Orally Once a day take each days dose at one time each day until all gone 24h November, Active ProAir HFA 108 (90 Base) MCG/ACT Inhalation every 4-6 hrs for cough/SOB 2 puffs as needed Sep, Not-Taking Hydrocodone-Acetaminophen 5-325 MG Orally 2 times a day. Must last month. 1 Tablet Sep, Not-Taking Ibuprofen 800 MG Orally 3 times a day Take with food 1 tablet PRN Active Albuterol Sulfate HFA 108 (90 Base) mcg/act Inhalation 4 times a day 2 puffs as needed 6h Feb, Active RESULTS No Results PROCEDURES Procedure Date Ordered Result Body Site SOLUMEDROL (UP TO 125 MG) December 15, 2017 THER/PROPH/DIAG INJ, SC/IM December 15, 2017 INSTRUCTIONS MEDICATIONS ADMINISTERED No Known Medications MEDICAL (GENERAL) HISTORY Type Description Date Medical History asthma Medical History anxiety Medical History osteoarthritis Surgical History tubal ligation 1992 Hospitalization History [facility] for poison cesar November 2014 Hospitalization History right ankle fracture, has a brace on 12/2016
--- OUTSIDE RECORDS SUMMARY | 2019-02-10 12:42 | XMS REPORT ---
Author Author LUANA VARELA Organization [employer] Address Unknown Phone Unavailable Care Team Providers Care Lockstitch Waistline Joiner Name Role Phone LUANA VARELA CP Unavailable Allergies No Known Allergies Problems Problem Type Condition Code Onset Dates Condition Status Problem Pityriasis versicolor 111.0 Active Problem Unspecified arthropathy, site unspecified 716.90 Active Problem Anxiety state, unspecified 300.00 Active Problem Unspecified episodic mood disorder 296.90 Active Problem Sciatica 724.3 Active Problem Acute upper respiratory infections of unspecified site 465.9 Active Problem Cough 786.2 Active Problem Asthma, unspecified, unspecified status 493.90 Active Problem Lumbago 724.2 Active Problem Nondependent tobacco use disorder 305.1 Active Medications Medication Code System Code Instructions Start Date End Date Status Dosage Hydrocodone-Acetaminophen [facility] [address]-07 5-325 MG Orally 2 times a day. Must last month. October 09, 2014 1 Tablet Results No Known Results Summary Purpose [employer] Submission
--- OUTSIDE RECORDS SUMMARY | 2019-02-10 12:42 | XMS REPORT ---
Author Author LUANA VARELA Organization [employer] Address Unknown Phone Unavailable Care Team Providers Care Softball Umpire Name Role Phone LUANA VARELA CP Unavailable [...] Start Date End Date Status Dosage Hydrocodone-Acetaminophen [facility] [address]-47 5-325 MG Orally 2 times a day. Must last month. October 09, 2014 1 Tablet Results No Known Results Summary Purpose [employer] Submission
--- OUTSIDE RECORDS SUMMARY | 2019-02-10 12:42 | XMS REPORT ---
Author Author BENITA CRANDALL [facility] [employer] Address Unknown Phone Unavailable Care Team Providers Care Elementary Classroom Teacher Name Role Phone BENITA CRANDALL CP Unavailable Allergies, Adverse Reactions, Alerts Substance Reaction Event Type Tramadol headaches Drug Allergy Problems Problem Type Condition ICD-9 Code Onset Dates Condition Status Problem Pityriasis [...] Problem Nondependent tobacco use disorder 305.1 Active Assessment Breast cancer screening V76.10 Active Assessment Pap test, as part of routine gynecological examination V76.2 Active Assessment Visit for gynecologic examination V72.31 Active Assessment Vaginal leukorrhea 623.5 Active Assessment Routine gynecological examination V72.31 Active Medications Medication Code System Code Instructions Start Date End Date Status Dosage Ibuprofen [facility] [address]-27 800 MG Orally Three times a day as needed take w food Sep 10, 2014 1 tablet HydrOXYzine HCl [facility] [address]-93 50 MG Orally every 8 hrs as needed May 08, 2014 1 Tablet Hydrocodone-Acetaminophen [facility] [address]-75 5-325 MG Orally 2 times a day October 09, 2014 1 Tablet Seroquel [facility] [address]-09 100 MG Orally Twice a day. 1/2 tab in AM and 1 tab at HS Sep 10, 2014 0.5-1 tablet Procedures Procedure Coding System Code Date SPECIMEN HANDLING CPT-4 14008 Mar 19, 2015 No Charge CPT-4 45427 Mar 19, 2015 CULTURE, BACTERIA, OTHER CPT-4 50814 Mar 19, 2015 Preventive Care Est Pt. Age 40-64 CPT-4 68079 Mar 19, 2015 TRICHOMONAS VAGIN, DIR PROBE CPT-4 82120 Mar 19, 2015 Vital Signs Date/Time: Mar 19, 2015 Temperature 98 F Weight 163 lbs Height 62.5 in BMI 29.33 Index Blood Pressure Diastolic 68 mmHg Blood Pressure Systolic 120 mmHg Cardiac Monitoring Heart Rate 70 bpm Results Name Result Date Reference Range Unit Abnormality Flag TRICHOMONAS (IN HOUSE) Summary Purpose [employer] Submission
--- OUTSIDE RECORDS SUMMARY | 2019-02-10 12:42 | XMS REPORT ---
Author Author LUANA VARELA [facility] [employer] Address Unknown Phone Unavailable Care Team Providers Care Practice Professional Name Role Phone LUANA VARELA CP Unavailable Allergies, Adverse Reactions, Alerts Substance Reaction Event Type Tramadol headaches Drug Allergy Problems Problem Type Condition ICD-9 Code Onset Dates Condition Status Problem Pityriasis versicolor 111.0 Active Problem Unspecified arthropathy, site unspecified 716.90 Active Problem Anxiety state, unspecified 300.00 Active Assessment Tobacco abuse disorder 305.1 Active Problem Unspecified episodic mood disorder 296.90 Active Problem Sciatica 724.3 Active Problem Acute upper respiratory infections of unspecified site 465.9 Active Problem Cough 786.2 Active Problem Asthma, unspecified, unspecified status 493.90 Active Problem Lumbago 724.2 Active Problem Nondependent tobacco use disorder 305.1 Active Medications Medication Code System Code Instructions Start Date End Date Status Dosage Seroquel [facility] [address]-73 100 MG Orally Twice a day. 1/2 tab in AM and 1 tab at HS Sep 10, 2014 0.5-1 tablet Xanax [facility] [address]-07 0.5 mg Aug 12, 2014 1 tablet by Oral route 2 times per day HydrOXYzine HCl [facility] [address]-12 50 MG Orally every 8 hrs as needed May 08, 2014 1 Tablet Hydrocodone-Acetaminophen [facility] [address]-65 5-325 MG Orally 2 times a day October 09, 2014 1 Tablet Albuterol [facility] 0 90 mcg/actuation inhaled every 4-6 hrs as needed for cough, SOB, wheezing Jul 09, 2014 2 puffs Chantix Starting Month Remi [facility] [address]-98 0.5 MG X 11 & 1 MG X 42 Orally Once a day Apr 14, 2015 . 5 mg qd x 3 d then bid x 4 d then 1 mg qd Ibuprofen [facility] [address]-42 800 MG Orally Three times a day as needed take w food Sep 10, 2014 1 tablet Procedures Procedure Coding System Code Date Office Visit, Est Pt., Level 3 CPT-4 45999 Apr 14, 2015 Vital Signs Date/Time: Apr 14, 2015 Temperature 98.1 F Weight 162.6 lbs Height 62.5 in BMI 29.26 Index Blood Pressure Diastolic 78 mmHg Blood Pressure Systolic 118 mmHg Cardiac Monitoring Heart Rate 90 bpm Results No Known Results Summary Purpose eClinicalWorks Submission
--- OUTSIDE RECORDS SUMMARY | 2019-02-10 12:42 | XMS REPORT ---
Author Author LUANA VARELA Organization [employer] Address Unknown Phone Unavailable Care Team Providers Care Credit Verification Clerk Name Role Phone LUANA VARELA CP Unavailable [...] Instructions Start Date End Date Status Dosage Fluoxetine [facility] [address]-63 20 MG Orally Once a day January 06, 2015 1 capsule in the morning HydrOXYzine HCl [facility] [address]-29 50 MG Orally every 8 hrs as needed May 08, 2014 1 Tablet Hydrocodone-Acetaminophen [facility] [address]-95 5-325 MG Orally 2 times a day. Must last month October 09, 2014 1 Tablet Results No Known Results Summary Purpose eClinicalWorks Submission
--- OUTSIDE RECORDS SUMMARY | 2019-02-10 12:42 | XMS REPORT ---
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 [id number], [place] [address] November, Poison cesar dermatitis L23.7 and Itching L29.9 [facility] [address] [facility] [id number], [place] [phone] Sep, Irritant contact dermatitis due to plants, except food L24.7 [facility] [address] [facility] [id number], [place] [address] Sep, [facility] [address] [facility] [id number], [place] [address] Feb, Poison cesar L23.[address] [facility] [address] [id number] [place] [id number] Feb, Closed fracture of right ankle with routine healing, subsequent encounter S82.891D [facility] [place] [id number] [place] [id number] Feb, Closed fracture of right ankle with routine healing, subsequent encounter S82.891D and Mild intermittent asthma without complication J45.20 [facility] [id number], [place] [address] Oct, [facility] [place] [id number] [place] [id number] Sep, Bilateral low back pain without sciatica M54.5 [facility] [place] [id number] [place] [address] [id number] Sep, [facility] [id number] [place] [address] [id number] Aug, [facility] [id number] [place] [id number] Aug, [facility] [address]00565100[place] [id number] Aug, Encounter for other specified administrative purpose Z02.89 [facility] [place] [address] [id number] [place] [id number] Jul, Bilateral low back pain without sciatica M54.5 and Episodic mood disorder F39 [facility] [address]00565[address] [id number] Jun, [facility] [address] [place] [address] [id number] Jun, [facility] [address] [id number] [place] [phone] Jun, [facility] [address] [id number] CLOU[place] [phone] Jun, [facility] [address] [id number] [place] [phone] May, [facility] [address] [id number] CLOUD[place] [phone] May, [facility] [address] [id number] [place] [id number] May, [facility] [address] [id number], [place] [id number] Apr, [facility] [address] [id number], [place] [id number] Apr, Dental examination Z01.20 [facility] [address] [id number], [place] [id number] Apr, [facility] [address] [id number], [place] [id number] Apr, [facility] [address] [id number], [place] [id number] Mar, Tobacco abuse disorder 305.1 [facility] [address] [id number], [place] [id number] Mar, Anxiety state, unspecified 300.00 [facility] [address] [id number] [place] [id number] Mar, [facility] [address] [id number], [place] [id number] Feb, [facility] [address] [id number], [place] [id number] Feb, [facility] [address] [id number], [place] [id number] Feb, Routine gynecological examination V72.31 ; Visit for gynecologic examination V72.31 ; Pap test, as part of routine gynecological examination V76.2 ; Breast cancer screening V76.10 and Vaginal leukorrhea 623.5 [facility] [address] [id number], [place] [phone] Feb, Lumbago 724.2 and Unspecified arthropathy, site unspecified 716.90 [facility] [address] [id number], [place] [id number] Feb, [facility] [address] [id number], [place] [id number] Feb, [facility] [address] [id number], [place] [id number] Jan, Sciatica 724.3 and Anxiety state, unspecified 300.00 [facility] [address] [id number], [place] [phone] Dec, [facility] [address] [id number], [place] [address] Dec, Sciatica 724.3 and Anxiety state, unspecified 300.00 [facility] [id number], [place] [phone] November, [facility] [id number], [place] [id number] November, Sciatica 724.3 and Poison cesar 692.6 [facility] [id number] [place] [address] Oct, [facility] [place] [facility] [id number] [place] [address] Oct, [facility] [id number] [place] [address] Sep, [facility] [id number], [place] [id number] Sep, [facility] [id number] [place] [address] Sep, [facility] [id number], [place] [id number] Aug, [facility] [address] [place] [address] Aug, [facility] [id number], [place] [address] Jul, [facility] [address]00565100[place], [place] [address] Jul, [facility] [id number], [place] [id number] Jul, [facility] [place] [facility] [address]00565100[place], [place] [address] Jul, [facility] [place] [facility] [address]00565100[place], [place] [address] Jun, [facility] [address] [id number] [place] [phone] Jun, [facility] [place] [facility] [address] [facility] [id number], [place] [address] Jun, [facility] [place] [facility] [address] [facility] [id number], [place] [address] May, [facility] [address] [id number] [place] [id number] May, [facility] [address] [id number] [place] [id number] Apr, [facility] [place] [facility] [address] [facility] [id number], [place] [address] Apr, [facility] [address] [facility] [id number] [place] [id number] Mar, [facility] [place] [facility] [address] [facility] [id number], [place] [address] Mar, [facility] [address] [facility] [id number] [place] [id number] Mar, [facility] [place] [facility] [address] [facility] [id number], [place] [address] Mar, [facility] [address] [facility] [id number] [place] [address]3596[address] Jan, [facility] [place] [facility] [address] [facility] [id number], [place] [address] Jan, [facility] [address] [facility] [id number], [place] 724626493 Dec, [facility] [place] [facility] [address] [facility] [id number], [place] [address] Dec, [facility] [address] [facility] [id number] [place] [id number] Dec, [facility] [place] [facility] [address] [facility] [id number], [place] [address] Dec, [facility] [address] [id number] [place] [id number] Dec, [facility] [place] [facility] [address] [facility] [id number], [place] [address] Dec, [facility] [address] [facility] [id number] [place] [id number] November, [facility] [place] [facility] [address] [facility] [id number], [place] [address] November, [facility] [address] [facility] [id number] [place] 2739239[address] November, [facility] [place] [facility] [address] [facility] [id number] [place] [address] November, [facility] [address] [facility] [id number] [place] [id number] Oct, [facility] [place] [facility] [address]00565100[place], [place] [address] Oct, [facility] [address] [facility] [id number], [place] 354785377 Sep, [facility] [place] [facility] [address] [id number], [place] [address] Sep, [facility] [address] [facility] [id number] [place] 0842220[address] Sep, [facility] [place] [facility] [address] [id number], [place] [address] Sep, [facility] [address] [facility] [id number] [place] [id number] Aug, [facility] [place] [facility] [address] [facility] [id number], [place] [address] Aug, [facility] [address] [facility] [id number] [place] [id number] Aug, [facility] [place] [facility] [address] [facility] [id number], [place] [address] Aug, [facility] [place] [facility] [address] [id number], [place] [address] Jul, [facility] [address] [id number], [place] [id number] Jul, [facility] [address] [id number] [place] [id number] Jul, [facility] [place] [facility] [address] [facility] [id number], [place] [address] Jul, [facility] [address] [id number], [place] [id number] Jul, [facility] [place] [facility] [address] [facility] [id number], [place] [address] Jul, [facility] [address] [id number] [place] [id number] Apr, [facility] [place] [facility] [address] [facility] [id number], [place] [address] Apr, [facility] [address] [id number], [place] [id number] Apr, [facility] [address] [id number], [place] 5084[address]476 Mar, [facility] [address] [id number], [place] [id number] Feb, [facility] [place] [facility] [address] [facility] [id number][place] [address] Feb, [facility] [address] [id number], [place] [id number] Jan, [facility] [place] [facility] [address] [facility] [id number], [place] [address] Dec, [facility] [address] [id number], [place] [id number] Dec, [facility] [place] [facility] [address] [facility] [id number], [place] [address] Dec, [facility] [address] [id number], [place] 841169489 Dec, [facility] [address] [id number], [place] 760186116 November, [facility] [address] [id number] [place] [id number] Sep, [facility] [address] [id number] [place] [id number] Aug, [facility] [address] [id number] [place] [id number] Jul, [facility] [address] [id number] [place] [id number] Jul, [facility] [address] [id number] [place] 546781866 Jun, [facility] [address] [facility] [id number], [place] [address] Jun, [facility] [address] [id number] [place] [id number] May, [facility] [address] [facility] [id number], [place] [address] May, [facility] [address] [id number], [place] [id number] May, [facility] [address]00565100[place], [place] [address] May, [facility] [id number] [place] [address] May, [facility] [address] [id number], [place] [id number] Apr, [facility] [address] [id number], [place] [id number] Apr, [facility] [address] [facility] [id number], [place] [address] Apr, [facility] [address] [facility] [id number], [place] [address] Apr, [facility] [address] [id number], [place] [id number] Mar, [facility] [address] [id number], [place] [id number] Feb, [facility] [address] [id number], [place] [id number] Feb, [facility] [address] [facility] [id number], [place] 934871708 Feb, [facility] [address] [id number], [place] [id number] Jan, [facility] [id number], [place] [id number] Jan, [facility] [address] [id number], [place] [address]90727[address] Jan, [facility] [id number], [place] [address]6765224[address] Jan, [id number] [address] Dec, [facility] [address] [id number], [place] 475744085 Dec, IMMUNIZATIONS No Known Immunizations SOCIAL HISTORY Never Assessed REASON FOR VISIT eye exam PLAN OF CARE VITAL SIGNS MEDICATIONS Unknown [...]
--- OUTSIDE RECORDS SUMMARY | 2019-02-10 12:42 | XMS REPORT ---
Author Author LUANA VARELA Organization [employer] Address Unknown Phone Unavailable Care Team Providers Care Instrument Technologist Name Role Phone LUANA VARELA CP Unavailable [...] Nondependent tobacco use disorder 305.1 Active Medications No Known Medications Results No Known Results Summary Purpose [employer] Submission
--- OUTSIDE RECORDS SUMMARY | 2019-02-10 12:42 | XMS REPORT ---
Author Author LUANA VARELA Organization [employer] Address Unknown Phone Unavailable Care Team Providers Care Shoe Repairer Helper Name Role Phone LUANA VARELA CP Unavailable [...]
--- OUTSIDE RECORDS SUMMARY | 2019-02-10 12:43 | XMS REPORT ---
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 [address]-70 100 MG Orally Twice a day. 1/2 tab in AM and 1 tab at HS Sep 10, 2014 0.5-1 tablet Results No Known Results Summary Purpose [employer] Submission
--- OUTSIDE RECORDS SUMMARY | 2019-02-10 12:43 | XMS REPORT ---
Author Author LUANA VARELA Organization [employer] Address Unknown Phone Unavailable Care Team Providers Care Driver Medic Name Role Phone LUANA VARELA CP Unavailable [...] Instructions Start Date End Date Status Dosage Albuterol NDC 0 90 mcg/actuation inhaled every 4-6 hrs as needed for cough, SOB, wheezing Jul 09, 2014 2 puffs Results No Known Results Summary Purpose [employer] Submission
--- OUTSIDE RECORDS SUMMARY | 2019-02-10 12:43 | XMS REPORT ---
Author Author LUANA VARELA Organization [employer] Address Unknown Phone Unavailable Care Team Providers Care Referral Nurse Name Role Phone LUANA VARELA CP Unavailable [...] Start Date End Date Status Dosage Seroquel [facility] [address]-77 100 MG Orally Twice a day. 1/2 tab in AM and 1 tab at HS Sep 10, 2014 0.5-1 tablet Sudafed [facility] [address]-41 30 MG Orally every 6 hrs Jun 08, 2015 1 tablet as needed Hydrocodone-Acetaminophen [facility] [address]-57 5-325 MG Orally 2 times a day. Must last month. DO NOT FILL UNTIL 06/10/15 October 09, 2014 1 Tablet Results No Known Results Summary Purpose [employer] Submission
--- OUTSIDE RECORDS SUMMARY | 2019-02-10 12:43 | XMS REPORT ---
Author Author LUANA VARELA Organization [employer] Address Unknown Phone Unavailable Care Team Providers Care Geoscience Technician Name Role Phone LUANA VARELA CP Unavailable [...] Start Date End Date Status Dosage Hydrocodone-Acetaminophen [facility] [address]-01 5-325 MG Orally 2 times a day. Must last month. DO NOT FILL UNTIL 06/24/15 October 09, 2014 1 Tablet Results No Known Results Summary Purpose [employer] Submission
--- OUTSIDE RECORDS SUMMARY | 2019-02-10 12:43 | XMS REPORT ---
Author Author LUANA VARELA Organization [employer] Address Unknown Phone Unavailable Care Team Providers Care Wet Crown Blocking Operator Name Role Phone LUANA VARELA CP Unavailable [...] Instructions Start Date End Date Status Dosage Xanax [facility] [address]-93 0.5 MG Orally Twice a day Aug 12, 2014 1 tablet Results No Known Results Summary Purpose [employer] Submission
--- OUTSIDE RECORDS SUMMARY | 2019-02-10 12:43 | XMS REPORT ---
Author Author LUANA VARELA [facility] [employer] Address Unknown Phone Unavailable Care Team Providers Care Hammer Setter Name Role Phone LUANA VARELA CP Unavailable Allergies, Adverse Reactions, Alerts Substance Reaction Event Type Tramadol headaches Drug Allergy Problems Problem Type Condition Code Onset Dates Condition Status Problem Unspecified arthropathy, site unspecified 716.90 Active Problem Cough 786.2 Active Problem Asthma, unspecified, unspecified status 493.90 Active Problem Episodic mood disorder F39 Active Problem Acute upper respiratory infections of unspecified site 465.9 Active Problem Bilateral low back pain without sciatica M54.5 Active Problem Lumbago 724.2 Active Problem Nondependent tobacco use disorder 305.1 Active Problem Unspecified episodic mood disorder 296.90 Active Problem Sciatica 724.3 Active Assessment Episodic mood disorder F39 Active Assessment Bilateral low back pain without sciatica M54.5 Active Problem Pityriasis versicolor 111.0 Active Problem Anxiety state, unspecified 300.00 Active Medications Medication Code System Code Instructions Start Date End Date Status Dosage Hydrocodone-Acetaminophen [facility] [address]-46 5-325 MG Orally 2 times a day. Must last month. October 09, 2014 1 Tablet Sudafed [facility] [address]-13 30 MG Orally every 6 hrs Jun 08, 2015 1 tablet as needed HydrOXYzine HCl [facility] [address]-06 50 MG Orally every 8 hrs as needed May 08, 2014 1 Tablet Ibuprofen [facility] [address]-30 800 MG Orally Three times a day as needed take w food Sep 10, 2014 1 tablet Xanax [facility] [address]-65 0.5 MG Orally Twice a day Aug 12, 2014 1 tablet Albuterol [facility] 0 90 mcg/actuation inhaled every 4-6 hrs as needed for cough, SOB, wheezing Jul 09, 2014 2 puffs Seroquel [facility] [address]-20 100 MG Orally Twice a day. 1/2 tab in AM and 1 tab at HS Sep 10, 2014 0.5-1 tablet Procedures Procedure Coding System Code Date Office Visit, Est Pt., Level 3 CPT-4 03369 Aug 10, 2015 Vital Signs Date/Time: Aug 10, 2015 Temperature 97.8 F Weight 159.1 lbs Height 62.5 in BMI 28.63 Index Blood Pressure Diastolic 60 mmHg Blood Pressure Systolic 120 mmHg Cardiac Monitoring Heart Rate 88 bpm Results No Known Results Summary Purpose [employer] Submission
--- OUTSIDE RECORDS SUMMARY | 2019-02-10 12:43 | XMS REPORT ---
Author Author LUANA VARELA Organization [employer] Address Unknown Phone Unavailable Care Team Providers Care Boxing Instructor Name Role Phone LUANA VARELA CP Unavailable [...] Instructions Start Date End Date Status Dosage Flagyl [facility] [address]-72 500 MG Orally every 8 hrs Mar 25, 2015 Apr 01, 2015 1 tablet Results No Known Results Summary Purpose [employer]Clinical[employer] Submission
--- OUTSIDE RECORDS SUMMARY | 2019-02-10 12:43 | XMS REPORT ---
Author Author LISA STRICKLAND [facility] e[employer] Address Unknown Phone Unavailable Care Team Providers Care Rn House Supervisor Name Role Phone LISA STRICKLAND Unavailable Allergies, Adverse Reactions, Alerts Substance Reaction Event Type Tramadol headaches Drug Allergy Problems Problem Type Condition Code Onset Dates Condition Status Problem Pityriasis versicolor 111.0 Active Problem Unspecified arthropathy, site unspecified 716.90 Active Problem Anxiety state, unspecified 300.00 Active Assessment Dental examination Z01.20 Active Problem Unspecified episodic mood disorder 296.90 Active Problem Sciatica 724.3 Active Problem Acute upper respiratory infections of unspecified site 465.9 Active Problem Cough 786.2 Active Problem Asthma, unspecified, unspecified status 493.90 Active Problem Lumbago 724.2 Active Problem Nondependent tobacco use disorder 305.1 Active Medications Medication Code System Code Instructions Start Date End Date Status Dosage Xanax [facility] [address]-84 0.5 MG Orally Twice a day Aug 12, 2014 1 tablet Ibuprofen [facility] [address]-57 800 MG Orally Three times a day as needed take w food Sep 10, 2014 1 tablet Seroquel [facility] [address]-31 100 MG Orally Twice a day. 1/2 tab in AM and 1 tab at HS Sep 10, 2014 0.5-1 tablet HydrOXYzine HCl [facility] [address]-01 50 MG Orally every 8 hrs as needed May 08, 2014 1 Tablet Albuterol [place] 0 90 mcg/actuation inhaled every 4-6 hrs as needed for cough, SOB, wheezing Jul 09, 2014 2 puffs Hydrocodone-Acetaminophen [facility] [address]-04 5-325 MG Orally 2 times a day. Must last month October 09, 2014 1 Tablet Procedures Procedure Coding System Code Date INTRAORL-PERIAPICAL 1 FILM 19161 CPT-4 D0220 May 11, 2015 LTD ORAL EVALUATION - PROBLEM FOCUS CPT-4 D0140 May 11, 2015 Vital Signs Date/Time: May 11, 2015 Blood Pressure Diastolic 79 mmHg Blood Pressure Systolic 116 mmHg Height 62.5 in Results No Known Results Summary Purpose eClinicalWorks Submission
--- OUTSIDE RECORDS SUMMARY | 2019-02-10 12:43 | XMS REPORT ---
Author Author LUANA VARELA [facility] Address [address] [place] [address] Care Team Providers Care Bottom Hoop Driver Name Role Phone LUAAN VARELA Unavailable PROBLEMS Type Condition ICD9-CM Code OXF67-XV Code Onset Dates Condition Status SNOMED Code Problem Asthma, unspecified, unspecified status 493.90 Active 82559811 Problem Nondependent tobacco use disorder 305.1 Active 286846987 Problem Acute upper respiratory infections of unspecified site 465.9 Active 55816559 Problem Cough 786.2 Active 05607287 Problem Unspecified arthropathy, site unspecified 716.90 Active 787463834 Problem Lumbago 724.2 Active 349269803 Problem Sciatica 724.3 Active 54582364 Problem Mild intermittent asthma without complication J45.20 Active 333176161 Problem Episodic mood disorder F39 Active 93175914 Problem Unspecified episodic mood disorder 296.90 Active 766023829 Problem Anxiety state, unspecified 300.00 Active 887783327 Problem Bilateral low back pain without sciatica M54.5 Active 169711818 Problem Pityriasis versicolor 111.0 Active 29244928 ALLERGIES No Information ENCOUNTERS Encounter Location Date Diagnosis [facility] [address] [facility] [id number] [id number] Sep, Irritant contact dermatitis due to plants, except food L24.7 [facility] [address] [facility] [id number][place] [address] Sep, [facility] [address] [facility] [id number], [place] [address] Feb, Poison cesar L23.7 [facility] [address] [id number][place] [id number] Feb, Closed fracture of right ankle with routine healing, subsequent encounter S82.891D [facility] [address] [id number][place] [address] Feb, Closed fracture of right ankle with routine healing, subsequent encounter S82.891D and Mild intermittent asthma without complication J45.20 [facility] [address] [id number], [place] [address] Oct, [facility] [address] [id number], [place] [address] Sep, Bilateral low back pain without sciatica M54.5 [facility] [address] [id number], [place] [id number] Sep, [facility] [address] [id number] [place] [id number] Aug, [facility] [id number], [place] [address] Aug, [facility] [address] [id number][place] [id number] Aug, Encounter for other specified administrative purpose Z02.[address] [facility] [place] [id number], [place] [id number] Jul, Bilateral low back pain without sciatica M54.5 and Episodic mood disorder F39 [facility] [address] [id number], [place] [id number] Jun, [facility] [place] [id number] [place] [id number] Jun, [facility] [address] [id number][place] [id number] Jun, [facility] [address] [id number], [place] [id number] Jun, [facility] [address] [id number], [place] [id number] May, [facility] [address] [id number], [place] [id number] May, [facility] [address] [id number], [place] [id number] May, [facility] [place] [id number] [place] [id number] Apr, [facility] [address] [id number], [place] [address] Apr, Dental examination Z01.20 [facility] [address] [id number], [place] [id number] Apr, [facility] [address] [id number], [place] [id number] Apr, [facility] [address] [id number], [place] [id number] Mar, Tobacco abuse disorder 305.1 [facility] [address] [id number], [place] [id number] Mar, Anxiety state, unspecified 300.[address] [address] [facility] [place] [address] [facility] [id number][place] [id number] Mar, [facility] [address] [id number], [place] [id number] Feb, [facility] [address] [id number], [place] [id number] Feb, [facility] [address] [id number], [place] [id number] Feb, Routine gynecological examination V72.31 ; Visit for gynecologic examination V72.31 ; Pap test, as part of routine gynecological examination V76.2 ; Breast cancer screening V76.10 and Vaginal leukorrhea 623.5 [facility] [address] [id number], [place] [id number] Feb, Lumbago 724.2 and Unspecified arthropathy, site unspecified 716.90 [facility] [address] [id number], [place] [id number] Feb, [facility] [address] [id number], [place] [id number] Feb, [facility] [address] [id number], [place] [address] Jan, Sciatica 724.3 and Anxiety state, unspecified 300.00 [facility] [address] [id number], [place] [id number] Dec, [place] [id number], [place] [address] Dec, Sciatica 724.3 and Anxiety state, unspecified 300.00 [facility] [id number] [place] [address] [id number] November, [facility] [id number], [place] [address] November, Sciatica 724.3 and Poison cesar 692.6 [facility] [id number] [place] [address] Oct, [facility] [id number] [place] [address] Oct, [facility] [place] [facility] [id number] [place] [address] Sep, [facility] [id number] [place] [address] [id number] Sep, [facility] [id number] [place] [address] Sep, [facility] [id number] [place] [address] [id number] Aug, [facility] [id number] [place] [address] Aug, [facility] [id number], [place] [address] Jul, [facility] [address] [place] [address] Jul, [facility] [address] [id number], [place] [id number] Jul, [facility] [id number] [place] [address] Jul, [facility] [address]00565100[place], [place] [address] Jun, [facility] [id number], [place] [id number] Jun, [facility] [place] [facility] [address] [facility] [id number] [place] [address] Jun, [facility] [place] [facility] [address] [facility] [id number] [place] [address] May, [facility] [address] [id number] [place] [address] May, [facility] [address] [facility] [id number] [place] [id number] Apr, [facility] [place] [facility] [address] [facility] [id number] [place] [address] Apr, [facility] [address] [id number] [place] [id number] Mar, [facility] [place] [facility] [address] [facility] [id number] [place] [address] Mar, [facility] [address] [facility] [id number] [place] [address] Mar, [facility] [place] [facility] [address] [facility] [id number], [place] [address] Mar, [facility] [address] [facility] [id number] [place] [address] Jan, [facility] [place] [facility] [address] [facility] [id number], [place] [address] Jan, [facility] [address] [facility] [id number], [place] [address] Dec, [facility] [place] [facility] [address] [facility] [id number], [place] [address] Dec, [facility] [address] [facility] [id number] [place] [id number] Dec, [facility] [place] [facility] [address] [facility] [id number], [place] [address] Dec, [facility] [address] [facility] [id number], [place] 885443763 Dec, [facility] [place] [facility] [address] [facility] [id number], [place] [address] Dec, [facility] [address] [id number] [place] [id number] November, [facility] [address] [facility] [id number] [place] [address] November, [facility] [address] [id number] [place] [address] November, [facility] [address] [facility] [id number][place] [address] November, [facility] [address] [id number] [place] [address] Oct, [facility] [address] [facility] [id number][place] [address] Oct, [facility] [address] [facility] [id number] [place] [address] Sep, [facility] [address]00565100[place], [place] [address] Sep, [facility] [address] [facility] [id number], [place] [address] Sep, [facility] [address] [facility] [id number], [place] [address] Sep, [facility] [address] [facility] [id number], [place] 93[address] Aug, [facility] [address] [facility] [id number], [place] [address] Aug, [facility] [address] [id number], [place] 40[address] Aug, [facility] [place] [facility] [address] [facility] [id number], [place] [address] Aug, [facility] [place] [address] [facility] [id number], [place] [address] Jul, [facility] [address] [id number] [place] [address] Jul, [facility] [address] [id number] [place] [id number] Jul, [facility] [address] [facility] [id number] [place] [address] Jul, [facility] [address] [id number] [place] [id number] Jul, [facility] [place] [facility] [address] [facility] [id number], [place] [address] Jul, [facility] [address] [id number] [place] [address] Apr, [facility] [address] [facility] [id number] [place] [address] Apr, [facility] [address] [id number] [place] [id number] Apr, [facility] [address] [id number] [place] [address]2498[address] Mar, [facility] [address] [id number] [place] [address]55[address] Feb, [facility] [address] [facility] [id number][place] [address] Feb, [facility] [address] [id number] [place] [address]36[address] Jan, [facility] [address] [facility] [id number], [place] [address] Dec, [facility] [address] [id number] [place] 101723[address] Dec, [facility] [place] [address] [facility] [id number], [place] [address] Dec, [facility] [address] [id number] [place] [address] Dec, [facility] [address] [id number] [place] [address] November, [facility] [address] [id number] [place] 900[address] Sep, [facility] [address] [id number] [place] [address] Aug, [facility] [address] [id number] [place] [address]756488[place] Jul, [facility] [address] [id number] [place] 7947[address] Jul, [facility] [address] [id number] [place] 1636[address] Jun, [facility] [address] [facility] [id number], [place] [address] Jun, [facility] [address] [id number] [place] [address] May, [facility] [address] [facility] [id number][place] [address] May, [facility] [address] [id number], [place] [address]76312588 May, [facility] [address]00565100[place], [place] [address] May, [facility] [address] [facility] [id number], [place] [address] May, [facility] [address] [id number], [place] 41387[address] Apr, [facility] [address] [id number], [place] 717441249 Apr, [facility] [address] [facility] [id number], [place] [address] Apr, [facility] [address] [facility] [id number], [place] [address] Apr, [facility] [address] [id number], [place] 27[address] Mar, [facility] [address] [id number] [place] [address] Feb, [facility] [address] [id number] [place] 805327996 Feb, [facility] [address] [id number] [place] [id number] Feb, [facility] [address] [id number], [place] [address]84[address] Jan, [facility] [address] [facility] [id number] [place] [id number] Jan, [facility] [address] [id number], [place] [id number] Jan, [facility] [address] [facility] [id number], [place] [address]234[address] Jan, [facility] [address] [id number], [place] [address] Dec, [facility] [address] [id number], [place] [address] Dec, IMMUNIZATIONS No Known Immunizations SOCIAL HISTORY Never Assessed REASON FOR VISIT Xray (walk-in) daniel chua PLAN OF CARE VITAL SIGNS MEDICATIONS No Known Medications RESULTS Name Result Date Reference Range Xray : Ankle, Right 2 views (IN HOUSE) 2017-03-08 PROCEDURES Procedure Date Ordered Result Body Site X-RAY EXAM OF ANKLE Mar 08, 2017 INSTRUCTIONS MEDICATIONS ADMINISTERED No Known Medications MEDICAL (GENERAL) HISTORY Type Description Date Medical History asthma Medical History anxiety Medical History osteoarthritis Surgical History tubal ligation 1992 Hospitalization History [facility] poison cesar November 2014 Hospitalization History right ankle fracture, has a brace on 12/2016
--- OUTSIDE RECORDS SUMMARY | 2019-02-10 12:44 | XMS REPORT ---
Author Author LUANA VARELA Organization [employer] Address Unknown Phone Unavailable Care Team Providers Care Automobile Designer Name Role Phone LUANA VARELA CP Unavailable [...] Instructions Start Date End Date Status Dosage HydrOXYzine HCl [facility] [address]-58 50 MG Orally every 8 hrs as needed May 08, 2014 1 Tablet Hydrocodone-Acetaminophen [facility] [address]-32 5-325 MG Orally 2 times a day. Must last month. DO NOT FILL UNTIL 06/24/15 October 09, 2014 1 Tablet Results No Known Results Summary Purpose [employer] Submission
--- OUTSIDE RECORDS SUMMARY | 2019-02-10 12:44 | XMS REPORT | Continuity of Care Document ---
Author Organization Unknown Address Unknown Allergies Active Description Code Type Severity Reaction Onset Reported/Identified Relationship to Patient Clinical Status Yes tramadol 50 mg tablet Drug Allergy N/A N/A 06/29/2012 Yes tramadol 50 mg tablet Drug Allergy 06/29/2012 Yes tramadol Drug Allergy N/A N/A 06/29/2012 Yes tramadol Drug Allergy 06/29/2012 Yes DOES NOT REMEMBER NAME OF ALLERGY. DOES NOT REMEMBER NAME OF ALLERGY. Unknown N/A 11/13/2018 Medications There is no data. Problems Date Dx Coded Attending Type Code Diagnosis Diagnosed By 02/21/2010 Ot 305.20 02/21/2010 Ot 305.70 02/21/2010 Ot 785.0 02/22/2010 Ot 625.9 01/24/2012 LUANA VARELA APRN R 305.1 current smoker 01/24/2012 LUANA VARELA APRN R 493.90 ASTHMA 01/24/2012 LUANA VARELA APRN 786.2 cough 01/24/2012 LUANA VARELA APRN 305.1 current smoker 01/24/2012 LUANA VARELA APRN 493.90 ASTHMA 01/24/2012 LUANA VARELA APRN R 786.2 cough 01/24/2012 LUANA VARELA APRN R 305.1 current smoker 01/24/2012 LUANA VARELA APRN 493.90 ASTHMA 01/24/2012 LUANA VARELA APRN R 786.2 cough 01/24/2012 305.1 current smoker 01/24/2012 493.90 ASTHMA 01/24/2012 786.2 cough 01/24/2012 305.1 current smoker 01/24/2012 493.90 ASTHMA 01/24/2012 786.2 cough 01/24/2012 LUANA VARELA APRN R 305.1 current smoker 01/24/2012 LUANA VARELA APRN 493.90 ASTHMA 01/24/2012 LUANA VARELA APRN R 786.2 cough 01/24/2012 SEVERINO DO, ODETTE K 305.1 current smoker 01/24/2012 SEVERINO DO, ODETTE K 493.90 ASTHMA 01/24/2012 SEVERINO DO, ODETTE K 786.2 cough 01/24/2012 SEVERINO DO, ODETTE K 305.1 current smoker 01/24/2012 SEVERINO DO, ODETTE K 493.90 ASTHMA 01/24/2012 SEVERINO DO, ODETTE K 786.2 cough 01/24/2012 SEVERINO DO, ODETTE K 305.1 current smoker 01/24/2012 SEVERINO DO, ODETTE K 493.90 ASTHMA 01/24/2012 SEVERINO DO, ODETTE K 786.2 cough 01/24/2012 SEVERINO DO, ODETTE K 305.1 current smoker 01/24/2012 SEVERINO DO, ODETTE K 493.90 ASTHMA 01/24/2012 SEVERINO DO, ODETTE K 786.2 cough 01/24/2012 SEVERINO DO, ODETTE K 305.1 current smoker 01/24/2012 SEVERINO DO, ODETTE K 493.90 ASTHMA 01/24/2012 SEVERINO DO, ODETTE K 786.2 cough 01/24/2012 SEVERINO DO, ODETTE K 305.1 current smoker 01/24/2012 SEVERINO DO, ODETTE K 493.90 ASTHMA 01/24/2012 SEVERINO DO, ODETTE K 786.2 cough 01/24/2012 SEVERINO DO, ODETTE K 305.1 current smoker 01/24/2012 SEVERINO DO, ODETTE K 493.90 ASTHMA 01/24/2012 SEVERINO DO, ODETTE K 786.2 cough 01/24/2012 SEVERINO DO, ODETTE K 305.1 current smoker 01/24/2012 SEVERINO DO, ODETTE K 493.90 ASTHMA 01/24/2012 SEVERINO DO, ODETTE K 786.2 cough 01/24/2012 LUANA VARELA APRN R 305.1 current smoker 01/24/2012 NICHOLE CHAMPAGNE, LUANA R 493.90 ASTHMA 01/24/2012 LUANA VARELA APRN R 786.2 cough 01/24/2012 LUANA VARELA APRN R 305.1 current smoker 01/24/2012 LUNAA VARELA APRN R 493.90 ASTHMA 01/24/2012 NICHOLE CHAMPAGNE, LUANA R 786.2 cough 01/24/2012 SEVERINO DO, ODETTE K 305.1 current smoker 01/24/2012 SEVERINO DO, ODETTE K 493.90 ASTHMA 01/24/2012 SEVERINO DO, ODETTE K 786.2 cough 01/24/2012 SEVERINO DO, ODETTE K 305.1 current smoker 01/24/2012 SEVERINO DO, ODETTE K 493.90 ASTHMA 01/24/2012 SEVERINO DO, ODETTE K 786.2 cough 02/10/2012 LUANA VARELA APRN R 724.2 BACK PAIN, LOWER 02/10/2012 VARELALUANA LOVE APRN R 724.3 SCIATICA 02/10/2012 VARELALUANA LOVE APRN R 724.2 BACK PAIN, LOWER 02/10/2012 VARELA MAHI, LUANA R 724.3 SCIATICA 02/10/2012 VARELA MAHI, LUANA R 724.2 BACK PAIN, LOWER 02/10/2012 VARELA MAHI, LUANA R 724.3 SCIATICA 02/10/2012 724.2 BACK PAIN, LOWER 02/10/2012 724.3 SCIATICA 02/10/2012 724.2 BACK PAIN, LOWER 02/10/2012 724.3 SCIATICA 02/10/2012 LUANA VARELA APRN R 724.2 BACK PAIN, LOWER 02/10/2012 VARELA LUANA CHAMPAGNE R 724.3 SCIATICA 02/10/2012 SEVERINO DO, ODETTE K 724.2 BACK PAIN, LOWER 02/10/2012 SEVERINO DO, ODETTE K 724.3 SCIATICA 02/10/2012 SEVERINO DO, ODETTE K 724.2 BACK PAIN, LOWER 02/10/2012 SEVERINO DO, ODETTE K 724.3 SCIATICA 02/10/2012 SEVERINO DO, ODETTE K 724.2 BACK PAIN, LOWER 02/10/2012 SEVERINO DO, ODETTE K 724.3 SCIATICA 02/10/2012 SEVERINO DO, ODETTE K 724.2 BACK PAIN, LOWER 02/10/2012 SEVERINO DO, ODETTE K 724.3 SCIATICA 02/10/2012 SEVERINO DO, ODETTE K 724.2 BACK PAIN, LOWER 02/10/2012 SEVERINO DO, ODETTE K 724.3 SCIATICA 02/10/2012 SEVERINO DO, ODETTE K 724.2 BACK PAIN, LOWER 02/10/2012 SEVERINO DO, ODETTE K 724.3 SCIATICA 02/10/2012 SEVERINO DO, ODETTE K 724.2 BACK PAIN, LOWER 02/10/2012 SEVERINO DO, ODETTE K 724.3 SCIATICA 02/10/2012 SEVERINO DO, ODETTE K 724.2 BACK PAIN, LOWER 02/10/2012 SEVERINO DO, ODETTE K 724.3 SCIATICA 02/10/2012 LUANA VARELA APRN 724.2 BACK PAIN, LOWER 02/10/2012 LUANA VARELA APRN 724.3 SCIATICA 02/10/2012 LUANA VARELA APRN R 724.2 BACK PAIN, LOWER 02/10/2012 LUANA VARELA APRN 724.3 SCIATICA 02/10/2012 SEVERINO DO, ODETTE K 724.2 BACK PAIN, LOWER 02/10/2012 SEVERINO DO, ODETTE K 724.3 SCIATICA 02/10/2012 SEVERINO DO, ODETTE K 724.2 BACK PAIN, LOWER 02/10/2012 SEVERINO DO, ODETTE K 724.3 SCIATICA 03/28/2012 LUANA VARELA APRN 300.00 AN ANXIETY UNSPEC 03/28/2012 LUANA VARELA APRN 300.00 AN ANXIETY UNSPEC 03/28/2012 LUANA VARELA APRN 300.00 AN ANXIETY UNSPEC 03/28/2012 300.00 AN ANXIETY UNSPEC 03/28/2012 300.00 AN ANXIETY UNSPEC 03/28/2012 LUANA VARELA APRN 300.00 AN ANXIETY UNSPEC 03/28/2012 SEVERINO DO, ODETTE K 300.00 AN ANXIETY UNSPEC 03/28/2012 SEVERINO DO, ODETTE K 300.00 AN ANXIETY UNSPEC 03/28/2012 SEVERINO DO, ODETTE K 300.00 AN ANXIETY UNSPEC 03/28/2012 SEVERINO DO, ODETTE K 300.00 AN ANXIETY UNSPEC 03/28/2012 SEVERINO DO, ODETTE K 300.00 AN ANXIETY UNSPEC 03/28/2012 SEVERINO DO, ODETTE K 300.00 AN ANXIETY UNSPEC 03/28/2012 SEVERINO DO, ODETTE K 300.00 AN ANXIETY UNSPEC 03/28/2012 SEVERINO DO, ODETTE K 300.00 AN ANXIETY UNSPEC 03/28/2012 LUANA VARELA APRN 300.00 AN ANXIETY UNSPEC 03/28/2012 LUANA VARELA APRN 300.00 AN ANXIETY UNSPEC 03/28/2012 SEVERINO DO, ODETTE K 300.00 AN ANXIETY UNSPEC 03/28/2012 SEVERINO DO, ODETTE K 300.00 AN ANXIETY UNSPEC 05/25/2012 NICHOLE CHAMPAGNE, LUANA Strong 716.90 ARTHRITIS/ ARTHROPATHY, UNSPECIFIED 05/25/2012 VARELAIVAN CHAMPAGNE, LUANA Strong 716.90 ARTHRITIS/ ARTHROPATHY, UNSPECIFIED 05/25/2012 VARELAIVAN CHAMPAGNE, LUANA Strong 716.90 ARTHRITIS/ ARTHROPATHY, UNSPECIFIED 05/25/2012 716.90 ARTHRITIS/ ARTHROPATHY, UNSPECIFIED 05/25/2012 716.90 ARTHRITIS/ ARTHROPATHY, UNSPECIFIED 05/25/2012 VARELAIVAN CHAMPAGNE, LUANA Strong 716.90 ARTHRITIS/ ARTHROPATHY, UNSPECIFIED 05/25/2012 SEVERINO DO, ODETTE K 716.90 ARTHRITIS/ ARTHROPATHY, UNSPECIFIED 05/25/2012 SEVERINO DO, ODETTE K 716.90 ARTHRITIS/ ARTHROPATHY, UNSPECIFIED 05/25/2012 SEVERINO DO, ODETTE K 716.90 ARTHRITIS/ ARTHROPATHY, UNSPECIFIED 05/25/2012 SEVERINO DO, ODETTE K 716.90 ARTHRITIS/ ARTHROPATHY, UNSPECIFIED 05/25/2012 SEVERINO DO, ODETTE K 716.90 ARTHRITIS/ ARTHROPATHY, UNSPECIFIED 05/25/2012 SEVERINO DO, ODETTE K 716.90 ARTHRITIS/ ARTHROPATHY, UNSPECIFIED 05/25/2012 SEVERINO DO, ODETTE K 716.90 ARTHRITIS/ ARTHROPATHY, UNSPECIFIED 05/25/2012 SEVERINO DO, ODETTE K 716.90 ARTHRITIS/ ARTHROPATHY, UNSPECIFIED 05/25/2012 VARELAIVAN CAHMPAGNE, LUANA Strong 716.90 ARTHRITIS/ ARTHROPATHY, UNSPECIFIED 05/25/2012 VARELA APRN, LUANA Strong 716.90 ARTHRITIS/ ARTHROPATHY, UNSPECIFIED 05/25/2012 SEVERINO DO, ODETTE K 716.90 ARTHRITIS/ ARTHROPATHY, UNSPECIFIED 05/25/2012 SEVERINO DO, ODETTE K 716.90 ARTHRITIS/ ARTHROPATHY, UNSPECIFIED 06/29/2012 LUANA VARELA APRN 111.0 TINEA VERSICOLOR 06/29/2012 LUANA VARELA APRN 111.0 TINEA VERSICOLOR 06/29/2012 111.0 TINEA VERSICOLOR 06/29/2012 111.0 TINEA VERSICOLOR 06/29/2012 LUANA VARELA APRN 111.0 TINEA VERSICOLOR 06/29/2012 SEVERINO DO, ODETTE K 111.0 TINEA VERSICOLOR 06/29/2012 SEVERINO DO, ODETTE K 111.0 TINEA VERSICOLOR 06/29/2012 SEVERINO DO, ODETTE K 111.0 TINEA VERSICOLOR 06/29/2012 SEVERINO DO, ODETTE K 111.0 TINEA VERSICOLOR 06/29/2012 SEVERINO DO, ODETTE K 111.0 TINEA VERSICOLOR 06/29/2012 SEVERINO DO, ODETTE K 111.0 TINEA VERSICOLOR 06/29/2012 SEVERINO DO, ODETTE K 111.0 TINEA VERSICOLOR 06/29/2012 SEVERINO DO, ODETTE K 111.0 TINEA VERSICOLOR 06/29/2012 LUANA VARELA APRN 111.0 TINEA VERSICOLOR 06/29/2012 VARELALUANA LOVE APRN 111.0 TINEA VERSICOLOR 06/29/2012 SEVERINO DO, ODETTE K 111.0 TINEA VERSICOLOR 06/29/2012 SEVERINO DO, ODETTE K 111.0 TINEA VERSICOLOR 11/30/2012 465.9 UPPER RESPIRATORY INFECTION 11/30/2012 LUANA VARELA APRN 465.9 UPPER RESPIRATORY INFECTION 11/30/2012 SEVERINO DO, ODETTE K 465.9 UPPER RESPIRATORY INFECTION 11/30/2012 SEVERINO DO, ODETTE K 465.9 UPPER RESPIRATORY INFECTION 11/30/2012 SEVERINO DO, ODETTE K 465.9 UPPER RESPIRATORY INFECTION 11/30/2012 SEVERINO DO, ODETTE K 465.9 UPPER RESPIRATORY INFECTION 11/30/2012 SEVERINO DO, ODETTE K 465.9 UPPER RESPIRATORY INFECTION 11/30/2012 SEVERINO DO, ODETTE K 465.9 UPPER RESPIRATORY INFECTION 11/30/2012 SEVERINO DO, ODETTE K 465.9 UPPER RESPIRATORY INFECTION 11/30/2012 SEVERINO DO, ODETTE K 465.9 UPPER RESPIRATORY INFECTION 11/30/2012 VARELALUANA LOVE APRN 465.9 UPPER RESPIRATORY INFECTION 11/30/2012 VARELA LUANA CHAMPAGNE 465.9 UPPER RESPIRATORY INFECTION 11/30/2012 SEVERINO DO, ODETTE K 465.9 UPPER RESPIRATORY INFECTION 11/30/2012 SEVERINO DO, OEDTTE K 465.9 UPPER RESPIRATORY INFECTION 08/06/2013 SEVERINO DO, ODETTE K 296.90 MOOD DISORDER NOS 08/06/2013 SEVERINO DO, ODETTE K 296.90 MOOD DISORDER NOS 08/06/2013 SEVERINO DO, ODETTE K 296.90 MOOD DISORDER NOS 08/06/2013 SEVERINO DO, ODETTE K 296.90 MOOD DISORDER NOS 08/06/2013 SEVERINO DO, ODETTE K 296.90 MOOD DISORDER NOS 08/06/2013 SEVERINO DO, ODETTE K 296.90 MOOD DISORDER NOS 08/06/2013 SEVERINO DO, ODETTE K 296.90 MOOD DISORDER NOS 08/06/2013 VARELALUANA LOVE APRN 296.90 MOOD DISORDER NOS 08/06/2013 VARELALUANA LOVE APRN 296.90 MOOD DISORDER NOS 08/06/2013 SEVERINO DO, ODETTE K 296.90 MOOD DISORDER NOS 08/06/2013 SEVERINO DO, ODETTE K 296.90 MOOD DISORDER NOS 12/13/2014 Ot 724.2 12/13/2014 Ot 724.3 12/13/2014 JAVAN ROLDAN, JULIA Nolan Ot 782.1 NONSPECIF SKIN ERUPT NEC 11/13/2018 CARLOS EDUARDO AMOS MD Ot F17.200 NICOTINE DEPENDENCE, UNSPECIFIED, UNCOMP 11/13/2018 CARLOS EDUARDO AMOS MD Ot J45.909 UNSPECIFIED ASTHMA, UNCOMPLICATED 11/13/2018 CARLOS EDUARDO AMOS MD Ot M25.552 PAIN IN LEFT HIP 11/13/2018 CARLOS EDUARDO AMOS MD Ot S76.012A STRAIN OF MUSCLE, FASCIA AND TENDON OF L 11/13/2018 CARLOS EDUARDO AMOS MD Ot X50.0XXA OVEREXERTION FROM STRENUOUS MOVEMENT OR 11/13/2018 CARLOS EDUARDO AMOS MD Ot Z98.51 TUBAL LIGATION STATUS 11/15/2018 CARLOS EDUARDO AMOS MD Ot F17.200 NICOTINE DEPENDENCE, UNSPECIFIED, UNCOMP 11/15/2018 CARLOS EDUARDO AMOS MD Ot J45.909 UNSPECIFIED ASTHMA, UNCOMPLICATED 11/15/2018 CARLOS EDUARDO AMOS MD Ot M25.552 PAIN IN LEFT HIP 11/15/2018 CARLOS EDUARDO AMOS MD Ot S76.012A STRAIN OF MUSCLE, FASCIA AND TENDON OF L 11/15/2018 CARLOS EDUARDO AMOS MD Ot X50.0XXA OVEREXERTION FROM STRENUOUS MOVEMENT OR 11/15/2018 CARLOS EDUARDO AMOS MD Ot Z98.51 TUBAL LIGATION STATUS 11/19/2018 CARLOS EDUARDO AMOS MD Ot F17.200 NICOTINE DEPENDENCE, UNSPECIFIED, UNCOMP 11/19/2018 CARLOS EDUARDO AMOS MD Ot J45.909 UNSPECIFIED ASTHMA, UNCOMPLICATED 11/19/2018 CARLOS EDUARDO AMOS MD Ot M25.552 PAIN IN LEFT HIP 11/19/2018 CARLOS EDUARDO AMOS MD Ot S76.012A STRAIN OF MUSCLE, FASCIA AND TENDON OF L 11/19/2018 CARLOS EDUARDO AMOS MD Ot X50.0XXA OVEREXERTION FROM STRENUOUS MOVEMENT OR 11/19/2018 CARLOS EDUARDO AMOS MD, Ot Z98.51 TUBAL LIGATION STATUS Procedures Code Description [place] [address] XRAY HAND DELBERT 2 VIEWS 08/14/2013 Results There is no data. Encounters ACCT No. Visit Date/Time Discharge Status Pt. Type Provider Facility Loc./Unit Complaint [id number] 11/06/2014 13:21:00 11/06/2014 23:59:59 CLS Outpatient ODETTE SEVERINO DO [id number] 09/10/2014 13:42:00 09/10/2014 23:59:59 CLS Outpatient ODETTE SEVERINO DO [id number] 07/09/2014 13:19:00 07/09/2014 23:59:59 CLS Outpatient LUANA VARELA APRN [id number] 05/08/2014 14:00:00 05/08/2014 23:59:59 CLS Outpatient LUANA VARELA APRN [id number] 04/16/2014 09:46:00 04/16/2014 23:59:59 CLS Outpatient ODETTE SEVERINO DO [id number] 02/27/2014 09:48:00 02/27/2014 23:59:59 CLS Outpatient ODETTE SEVERINO DO [id number] 01/27/2014 16:25:00 01/27/2014 23:59:59 CLS Outpatient ODETTE SEVERINO DO [id number] 12/10/2013 13:25:00 12/10/2013 23:59:59 CLS Outpatient ODETTE SEVERINO DO [id number] 09/12/2013 14:18:00 09/12/2013 23:59:59 CLS Outpatient ODETTE SEVERINO DO [id number] 08/12/2013 08:52:00 08/12/2013 23:59:59 CLS Outpatient ODETTE SEVERINO DO [id number] 08/06/2013 13:31:00 08/06/2013 23:59:59 CLS Outpatient ODETTE SEVERINO DO [id number] 2013 14:07:00 2013 23:59:59 CLS Outpatient ODETTE SEVERINO DO [id number] 01/23/2013 14:09:00 01/23/2013 23:59:59 CLS Outpatient LUANA VARELA APRN [id number] 10/26/2012 14:25:00 10/26/2012 23:59:59 CLS Outpatient [id number] 08/27/2012 11:21:00 08/27/2012 23:59:59 CLS Outpatient LUANA VARELA APRN [id number] 06/29/2012 13:14:00 06/29/2012 23:59:59 CLS Outpatient LUANA VARELA APRN [id number] 05/25/2012 13:23:00 05/25/2012 23:59:59 CLS Outpatient LUANA VARELA APRN [id number] 11/30/2012 14:26:00 Document Registration [id number] 11/13/2018 08:03:00 11/13/2018 10:18:00 DIS Emergency DANDRE ROLDAN, CARLOS EDUARDO Tolentino [facility] ER LEG PAIN [id number] 12/13/2014 15:51:00 12/13/2014 16:21:00 DIS Emergency JAVAN ROLDAN, JULIA Nolan [facility] ER RASH [id number] 02/17/2012 14:00:00 Document Registration [id number] 02/22/2010 01:54:00 Document Registration [id number] 02/21/2010 10:12:00 Document Registration [id number] 12/12/2018 09:40:00 12/12/2018 23:59:59 CLS Outpatient LUANA VARELA APRN [facility]
[2019-02-10] MEDS ORDERED: HYDR-4226 PO (12:56)
--- NOTE | 2019-02-10 12:57 | ED Lower Extremity ---
General Chief Complaint: Lower Extremity Stated Complaint: R KNEE INJ Nursing Triage Note: Patient ambulatory to ER FT1 with use of crutches. Spouse is present. Patient states she bent down yesterday around 3 pm in the garden to pick onions when her right knee popped and she has had pain and difficulty walking on the right knee since then. Nursing Sepsis Screen: No Definite Risk Source: patient Exam Limitations: no limitations History of Present Illness Date Seen by Provider: Feb 10, 2019 Time Seen by Provider: 12:52 Initial Comments To ER with right medial knee pain that began suddenly after she squatted down in the garden to pickup a vegetable. Upon standing she felt as though her knee was locked and she was unable to bear weight on it, unable to flex or extend any further than it was. Pain is at the joint line medially. There is no fall or direct injury to the knee. She states this has happened before. Onset: just prior to arrival Severity: moderate Pain/Injury Location: right knee Modifying Factors: Worse With Movement Allergies and Home Medications Allergies Uncoded Allergies: DOES NOT REMEMBER NAME OF ALLERGY. (Allergy, Unknown, 11/13/18) Home Medications Cyclobenzaprine HCl 10 Mg Tablet, 10 MG PO Q8H PRN for SPASMS Prescribed by: CARLOS EDUARDO AMOS on 11/13/18 1016 Patient Home Medication List Home Medication List Reviewed: Yes Review of Systems Constitutional: see HPI EENTM: see HPI Respiratory: no symptoms reported Cardiovascular: no symptoms reported Genitourinary: no symptoms reported Musculoskeletal: see HPI, joint pain Skin: no symptoms reported Psychiatric/Neurological: No Symptoms Reported Past Xjwjcnz-Vwcvlt-Grogrn Hx Patient Social History Alcohol Use: Denies Use Recreational Drug Use: No Smoking Status: Current Everyday Smoker Type Used: Cigarettes 2nd Hand Smoke Exposure: Yes Recent Foreign Travel: No Contact w/Someone Who Travel: No Recent Infectious Disease Expo: No Recent Hopitalizations: No Immunizations Up To Date Tetanus Booster (TDap): Unknown PED Vaccines UTD: Yes Seasonal Allergies Seasonal Allergies: No Past Medical History Surgeries: Yes Tubal Ligation Respiratory: Yes Asthma Cardiac: No Neurological: No Genitourinary: No Gastrointestinal: No Musculoskeletal: Yes Fractures Endocrine: No HEENT: No Did You Recieve Any Treatments: No Psychosocial: No Integumentary: No Physical Exam Vital Signs Vital Signs - First Documented 02/10/19 12:32 Temp 98.1 Pulse 88 Resp 16 B/P (MAP) 131/83 (99) Pulse Ox 98 O2 Delivery Room Air Capillary Refill : Less Than 3 Seconds Height, Weight, BMI Height: 5'0" Weight: 170lbs. oz. 77.927633vy; BMI Method:Stated General Appearance: WD/WN, no apparent distress Neck: non-tender, full range of motion Respiratory: no respiratory distress, no accessory muscle use Hips: bilateral hip non-tender, bilateral hip normal inspection, bilateral hip normal range of motion Legs: bilateral leg non-tender, bilateral leg normal inspection, bilateral leg normal range of motion Knees: bilateral knee normal inspection; right knee other (limited range of motion. No palpable effusion. Difficulty fully extending or flexing the knee. Tenderness to palpation over the medial joint line. No ligamentous instability.) Ankles: bilateral ankle non-tender, bilateral ankle normal inspection, bilateral ankle normal range of motion Feet: bilateral foot non-tender, bilateral foot normal inspection, bilateral foot normal range of motion Neurologic/Psychiatric: alert, normal mood/affect, oriented x 3 Skin: normal color, warm/dry Progress/Results/Core Measures Results/Orders My Orders Orders - OLIVIER WILKINSON APRN Knee, Right, 3 Views (02/10/19 12:39) Vital Signs/I&O 02/10/19 12:32 Temp 98.1 Pulse 88 Resp 16 B/P (MAP) 131/83 (99) Pulse Ox 98 O2 Delivery Room Air Blood Pressure Mean: 99 Departure Impression Primary Impression: Meniscal injury Qualified Codes: S83.8X1A - Sprain of other specified parts of right knee, initial encounter Disposition: 01 HOME, SELF-CARE Condition: Improved Departure-Patient Inst. Decision time for Depature: 12:55 Referrals: NO,LOCAL PHYSICIAN (PCP/Family) Primary Care Physician Patient Instructions: Internal Derangement of the Knee Add. Discharge Instructions: 1. Use crutches as needed. When you're able to walk without pain and you can stop using the crutches. Tylenol and ibuprofen for pain control. Use a stronger pain medication as needed. Call your family doctor tomorrow to make an appointment to be seen to schedule an MRI of the knee. This will help determine the extent of the meniscus injury and whether time and rest or surgical intervention is warranted. All discharge instructions reviewed with patient and/or family. Voiced understanding. Scripts Hydrocodone/Acetaminophen ([place]son 5-325 Tablet) 1 Each Tablet 1 TAB PO Q6H PRN for PAIN-SEVERE MDD 10 TABS for 7 Days, #10 TAB Prov: OLIVIER WILKINSON APRN 02/10/19 OLIVIER WILKINSON APRN Feb 10, 2019 12:57
[2019-02-10 13:07] VITALS: BP 131/83
--- NOTE | 2019-02-10 13:07 | Diagnostic Imaging Report ---
INDICATION: Medial right patella pain after injury, heard a pop. TECHNIQUE: 3 views of the right knee. COMPARISON: None FINDINGS: No acute fracture or dislocation is seen in the right knee. Alignment appears normal. Joint spaces are preserved. There is a small right knee joint effusion. IMPRESSION: No acute osseous abnormality is seen in the right knee. There is a small right knee joint effusion. If there is concern for internal derangement, consider nonemergent MRI for further evaluation. Dictated by: Dictated on workstation # [id number]
== END 2019-02-10 13:09 | disposition home or self-care (01) ==
LOC: EDUNIT# 12:31 → ER 12:32
DX: S83.8X1A Sprain of other specified parts of right knee, initial encounter (principal); J45.909 Unspecified asthma, uncomplicated; F17.210 Nicotine dependence, cigarettes, uncomplicated; Z98.51 Tubal ligation status; X50.0XXA Overexertion from strenuous movement or load, initial encounter; Y93.73 Activity, racquet and hand sports
CPT/HCPCS: 73562

== ENCOUNTER 2019-07-01 16:47 | Emergency (ER) | payer BC, MEDICAID ==
[~2019-07-01] VITALS: Ht 152.4 cm; Wt 77.3 kg
[~2019-07-01 16:47] MED LIST changes: +HYDR-4226 PO
[2019-07-01 16:55] VITALS: BP 146/90
[2019-07-01 17:43] LABS: BILIRUBIN,URINE NEGATIVE (NEGATIVE); CLARITY,URINE CLEAR; COLOR,URINE YELLOW; GLUCOSE, URINE (UA) NEGATIVE (NEGATIVE); KETONES,URINE NEGATIVE (NEGATIVE); LEUKOCYTE ESTERASE ,URINE NEGATIVE (NEGATIVE); NITRITE,URINE NEGATIVE (NEGATIVE); PROTEIN,URINE NEGATIVE (NEGATIVE)
--- NOTE | 2019-07-01 17:43 | ED Back Pain ---
General Chief Complaint: Back Problems Stated Complaint: LOWER BACK PAIN, FREQUENT URINATION Nursing Triage Note: Pt amb to triage with c/o Rt flank pain radiating to Rt lower abd. Pt reports onset of symptoms to be "a couple days ago." Pt reports foul smelling urine, frequency, and urgency. Reports hx kidney stones. Nursing Sepsis Screen: No Definite Risk Source of Information: Patient Exam Limitations: No Limitations History of Present Illness Date Seen by Provider: Jul 01, 2019 Time Seen by Provider: 17:35 Initial Comments 49-year-old female that presents to the emergency department with her significant other. Patient reports that she developed right lower flank pain about 6-7 days ago and had urinary urgency and frequency at that time. Patient reports having a history of UTIs and taking cranberry juice. Patient reports that since taking the cranberry juice and tablets that her urinary urgency has decreased but the pain has not. Patient is unable to sit straight up or lean to the right without pain. About 3 days ago, patient was lifting feed bags and moving them, similar twisting motion reproduces the same back pain she is experiencing today. Location: Lumbar Spine Timing/Duration: 6-7 Days Severity: Mild Pain/Injury Location: Other (right flank) Method of Injury: Other (denies) Modifying Factors: Improves With Immobilization; Worse With Movement; Improves With Rest Associated Symptoms: denies symptoms Allergies and Home Medications Allergies Uncoded Allergies: DOES NOT REMEMBER NAME OF ALLERGY. (Allergy, Unknown, 11/13/18) Home Medications Cyclobenzaprine HCl 10 Mg Tablet, 10 MG PO Q8H PRN for SPASMS Prescribed by: CARLOS EDUARDO AMOS on 11/13/18 1016 Hydrocodone/Acetaminophen 1 Each Tablet, 1 TAB PO Q6H PRN for PAIN-SEVERE Prescribed by: OLIVIER WILKINSON on 02/10/19 1256 Patient Home Medication List Home Medication List Reviewed: Yes Review of Systems Constitutional: no symptoms reported, see HPI EENTM: see HPI, no symptoms reported Respiratory: no symptoms reported, see HPI Cardiovascular: no symptoms reported, see HPI Gastrointestinal: no symptoms reported, see HPI Genitourinary: frequency, other (urgency) Musculoskeletal: see HPI, back pain, muscle stiffness Skin: no symptoms reported, see HPI Psychiatric/Neurological: No Symptoms Reported, See HPI All Other Systems Reviewed Negative Unless Noted: Yes Past Dqkvnnf-Delqvi-Gcliui Hx Past Med/Social Hx: Reviewed Nursing Past Med/Soc Hx Patient Social History Alcohol Use: Denies Use Recreational Drug Use: Yes Smoking Status: Current Everyday Smoker Type Used: Cigarettes 2nd Hand Smoke Exposure: Yes Recent Foreign Travel: No Contact w/Someone Who Travel: No Recent Infectious Disease Expo: No Recent Hopitalizations: No Immunizations Up To Date Tetanus Booster (TDap): Unknown PED Vaccines UTD: Yes Seasonal Allergies Seasonal Allergies: No Past Medical History Surgeries: Yes Tubal Ligation Respiratory: Yes Asthma Cardiac: No Neurological: No Genitourinary: No Gastrointestinal: No Musculoskeletal: Yes Fractures Endocrine: No HEENT: No Did You Recieve Any Treatments: No Psychosocial: No Integumentary: No Physical Exam Vital Signs Vital Signs - First Documented 07/01/19 16:55 Temp 36.5 Pulse 71 Resp 17 B/P (MAP) 146/90 (108) Pulse Ox 98 O2 Delivery Room Air Capillary Refill : Less Than 3 Seconds Height, Weight, BMI Height: 5'0" Weight: 170lbs. oz. 77.259694ye; 33.00 BMI Method:Stated General Appearance: No Apparent Distress, WD/WN HEENT: PERRL/EOMI, TMs Normal, Normal ENT Inspection, Pharynx Normal Neck: Full Range of Motion, Normal Inspection, Non Tender, Supple Cardiovascular: Regular Rate, Rhythm, No Edema, No Gallop, No JVD, No Murmur, Normal Peripheral Pulses Respiratory: Chest Non Tender, Lungs Clear, Normal Breath Sounds, No Accessory Muscle Use, No Respiratory Distress Gastrointestinal: Normal Bowel Sounds, No Organomegaly, No Pulsatile Mass, Non Tender, Soft Back: Normal Inspection, Decreased Range of Motion, Muscle Spasm, Other (Power V/V L4-S1, Neg SLR. ) Extremity: Normal Capillary Refill, Normal Inspection, Normal Range of Motion Neurologic/Psychiatric: Alert, Oriented x3, No Motor/Sensory Deficits, Normal Mood/Affect Skin: Normal Color, Warm/Dry Lymphatic: No Adenopathy Progress/Results/Core Measures Results/Orders Lab Results Laboratory Tests Test 07/01/19 17:13 Range/Units Urine Color YELLOW Urine Clarity CLEAR Urine pH 6.0 5-9 Urine Specific [place] 1.010 L 1.016-1.022 Urine Protein NEGATIVE NEGATIVE Urine Glucose (UA) NEGATIVE NEGATIVE Urine Ketones NEGATIVE NEGATIVE Urine Nitrite NEGATIVE NEGATIVE Urine Bilirubin NEGATIVE NEGATIVE Urine Urobilinogen 0.2 < = 1.0 MG/DL Urine Leukocyte Esterase NEGATIVE NEGATIVE Urine RBC (Auto) NEGATIVE NEGATIVE Urine RBC NONE /HPF Urine WBC 2-5 /HPF Urine Squamous Epithelial Cells 5-10 /HPF Urine Crystals NONE /LPF Urine Bacteria FEW H /HPF Urine Casts NONE /LPF Urine Mucus NEGATIVE /LPF Urine Culture Indicated YES My Orders Orders - SENIA CARRASCO Ua Culture If Indicated (07/01/19 17:32) Urine Culture (07/01/19 17:13) Ketorolac Injection (Toradol Injection) (07/01/19 18:00) Orphenadrine Injection (Norflex Injectio (07/01/19 18:00) Medications Given in ED Current Medications Medications Dose Ordered Sig/Sean Route Start Time Stop Time Status Last Admin Dose Admin Ketorolac Tromethamine 30 mg ONCE PRN IM 07/01/19 18:00 07/01/19 18:38 DC 07/01/19 18:04 30 MG Orphenadrine Citrate 60 mg ONCE ONCE IM 07/01/19 18:00 07/01/19 18:01 DC 07/01/19 18:04 60 MG Vital Signs/I&O 07/01/19 16:55 Temp 36.5 Pulse 71 Resp 17 B/P (MAP) 146/90 (108) Pulse Ox 98 O2 Delivery Room Air Blood Pressure Mean: 108 POS Departure Impression Primary Impression: Back strain Qualified Codes: S39.012A - Strain of muscle, fascia and tendon of lower back, initial encounter Disposition: 01 HOME, SELF-CARE Condition: Improved Departure-Patient Inst. Decision time for Depature: 17:58 Referrals: NO,LOCAL PHYSICIAN (PCP) Primary Care Physician Patient Instructions: Lumbar Muscle Strain (DC) Add. Discharge Instructions: Use moist heat on your back for 20 minute intervals You also may use icy hot, BenGay, or something of this sorts You can alternate Tylenol and ibuprofen every 4 hours as needed for pain Tylenol You can have up to 650 mg and ibuprofen you can have up to 600 mg. Follow-up with your primary care provider if symptoms do not improve in the next week. All discharge instructions reviewed with patient and/or family. Voiced und erstanding. SENIA CARRASCO Jul 01, 2019 17:43 POS
[2019-07-01 17:45] LABS: BACTERIA,URINE FEW /HPF
[2019-07-01] MEDS ORDERED: KETOROLAC 30 MG/ML VIAL IM PRN (18:00)
[2019-07-01] MEDS ORDERED: ORPHENADRINE 60 MG/2 ML (NORFLEX) AMP IM ONE (18:00)
--- OUTSIDE RECORDS SUMMARY | 2019-07-26 20:24 | XMS REPORT ---
Author Author Rony VARELA Organization [facility] Address [address] [place] [address] Care Team Providers [employer] Accounts Manager Name Role Phone LUANA VARELA Unavailable PROBLEMS Type Condition ICD9-CM Code [id number] Code Onset Dates Condition S tatus SNOMED Code Problem Episodic mood disorder F39 Active 59098398 Problem Mild intermittent asthma without complication J45. 20 Active 649391139 Problem Bilateral low back pain without sciatica M54.5 Active 319074317 ALLERGIES No Information ENCOUNTERS Encounter Location Date Diagnosis [facility] [id number] [place] [address], S [phone] Jan, Strain of right knee, subsequent encount er S86.911D [facility] [id number] [place] [address], [place] [id number] Jan, Strain of right knee, initial encounter S86.911A and Nasopharyngitis J00 [facility] [id number] [place] [address], [place] [id number] November, Nasopharyngitis J00 [facility] [id number] [address] [place] [phone] November, Poison cesar dermatitis L23.[address] [facility] [id number] [place] [address], [place] [phone] Sep, Irritant contact dermatitis due to plant s, except food L24.7 [facility] [address] [facility] [id number] [address] [place] [phone] Sep, [facility] [address] [facility] [id number] [address] [place] [phone] Feb, Poison cesar L23.7 [facility] [id number] [place] [id number] Feb, Closed fracture of right ankle with rout ine healing, subsequent encounter S82.891D [facility] [place] [address] [id number] [place] [id number] Feb, Closed fracture of right ankle with rout ine healing, subsequent encounter S82.891D and Mild intermittent asthma without complication J45.20 [facility] [place] [address] [id number] [place] [id number] Oct, [facility] [place] [address] [id number] [place] [id number] Sep, Bilateral low back pain without sciatica M54.5 [facility] [place] [address] [id number] [place] [id number] Sep, [facility] [place] [address] [id number] [place] [id number] Aug, [facility] [address] [id number] [place] [id number] Aug, [facility] [address] [id number] [address] [place] [phone] Aug, Encounter for other specifie d administrative purpose Z02.89 [facility] [place] [address] [id number] [place] [id number] Jul, Bilateral low back pain without sciatica M54.5 and Episodic mood disorder F39 [facility] [place] [address] [id number] [place] [id number] Jun, [facility] [address] [id number] [place] [id number] Jun, [facility] [address] [id number] [id number] Jun, [facility] [address] [id number][place] [id number] Jun, [facility] [address] [id number][place] [id number] May, [facility] [address] [id number][place] [id number] May, [facility] [address] [id number] [place] [id number] May, [facility] [place] [address] [id number] [place] [id number] Apr, [facility] [address] [id number] [place] [id number] Apr, Dental examination Z01.20 [facility] [place] [address] [id number] [place] [id number] Apr, [facility] [place] [address] [id number] [place] [id number] Apr, [facility] [place] [address] [id number] [place] [id number] Mar, Tobacco abuse disorder 305.1 [facility] [place] [address] [id number] [place] [id number] Mar, Anxiety state, unspecified 300.00 [facility] [address] [id number][place] [id number] Mar, [facility] [place] [address] [id number] [place] [id number] Feb, [facility] [place] [address] [id number] [place] [id number] Feb, [facility] [place] [address] [id number] [place] [id number] Feb, Routine gynecological examination V72.31 ; Visit for gynecologic examination V72.31 ; Pap test, as part of routine gynecological examination V76.2 ; Breast cancer screening V76.10 and Vaginal leukorrhea 623.5 [facility] [place] [address] [id number] [place] [id number] Feb, Lumbago 724.2 and Unspecified arthropath y, site unspecified 716.90 [facility] [place] [address] [id number] [place] [id number] Feb, [facility] [place] [address] [id number] [place] [id number] Feb, [facility] [place] [address] [id number] [place] [id number] Jan, Sciatica 724.3 and Anxiety state, unspec ified 300.00 [facility] [place] [address] [id number] [place] [id number] Dec, [facility] [place] [address] [id number] [place] [id number] Dec, Sciatica 724.3 and Anxiety state, unspec ified 300.00 [facility] [place] [address] [id number] [place] [id number] November, [facility] [place] [address] [id number] [place] [id number] November, Sciatica 724.3 and Poison cesar 692.6 [facility] [address] [facility] [id number] [address] [place] [phone] Oct, [facility] [address] [id number] [address] [place] [phone] Oct, [facility] [address] [facility] [id number] [address] [place] [phone] Sep, [facility] [place] [address] [id number] [place] [id number] Sep, [facility] [address] [id number] [address] [place] [phone] Sep, [facility] [place] [address] [id number] [place] [id number] Aug, [facility] [address] [facility] [id number] [address] [place] [phone] Aug, [facility] [place] [address] [id number] [place] [id number] Jul, [facility] [address] [facility] [id number] [address] [place] [phone] Jul, [facility] [place] [address] [id number] [place] [id number] Jul, [facility] [address] [id number] [facility] [place] [address] Jul, [facility] [place] [facility] [address] [id number] [address] [place] [address], [place] [address] Jun, [facility] [place] [address] [id number] [place] [id number] Jun, [facility] [place] [facility] [address] [id number] [address] [place] [address], [place] [phone] Jun, [facility] [place] [facility] [address] [id number] [address] [place] [address], [place] [address] May, [facility] [place] [address] [id number] [place] [id number] May, [facility] [place] [address] [id number] [place] [id number] Apr, [facility] [address] [facility] [id number] [address] [place] [address], [place] [address] Apr, [facility] [place] [address] [id number] [place] [id number] Mar, [facility] [address] [id number] [address] [place] [address], [place] [address] Mar, [facility] [place] [address] [id number] [place] [id number] Mar, [facility] [address] [id number] [address] [place] [address], [place] [address] Mar, [facility] [place] [address] [id number] [place] [id number] Jan, [facility] [place] [facility] [address] [id number] [address] [place] [address], [place] [address] Jan, [facility] [place] [address] [id number] [place] [id number] Dec, [facility] [place] [facility] [address] [id number] [address] [place] [address], [place] [address] Dec, [facility] [place] [address] [id number] [place] [id number] Dec, [facility] [place] [facility] [address] [id number] [address] [place] [address], [place] [address] Dec, [facility] [place] [address] [id number] [place] [id number] Dec, [facility] [place] [facility] [address] [facility] [id number] [address] [place] [phone] Dec, [facility] [place] [address] [id number] [place] [id number] November, [facility] [place] [facility] [address] [id number] [address] [place] [address], [place] [address] November, [facility] [place] [address] [id number] [place] [id number] November, [facility] [facility] [address] [facility] [id number] [address] [place] [phone] November, [facility] [place] [address] [id number] [place] [id number] Oct, [facility] [address] [id number] [address] [place] [phone] Oct, [facility] [place] [address] [id number] [place] [id number] Sep, [facility] [address] [facility] [id number] [address] [place] [phone] Sep, [facility] [place] [address] [id number] [place] [id number] Sep, [facility] [address] [id number] [address] [place] [phone] Sep, [facility] [place] [address] [id number] [place] [id number] Aug, [facility] [address] [id number] [address] [place] [address], [place] [address] Aug, [facility] [place] [address] [id number] [place] [id number] Aug, [facility] [address] [facility] [id number] [address] [place] [phone] Aug, [facility] [address] [id number] [address] [place] [address], [place] [address] Jul, [facility] [place] [address] [id number] [place] [id number] Jul, [facility] [place] [address] [id number] [place], [place] [id number] Jul, [facility] [address] [id number] [address] [place] [phone] Jul, [facility] [place] [address] [id number] [place] [id number] Jul, [facility] [address] [id number] [address] [place] [address], [place] [address] Jul, [facility] [place] [address] [id number] [place] [id number] Apr, [facility] [address] [id number] [address] [place] [phone] Apr, [facility] [place] [address] [id number] [place] [id number] Apr, [facility] [place] [address] [id number] [place] [id number] Mar, [facility] [place] [address] [id number] [place] [id number] Feb, [facility] [address] [id number] [address] [place] [address], [place] [address] Feb, [facility] [place] [address] [id number] [place] [id number] Jan, [facility] [address] [id number] [address] [place] [phone] Dec, [facility] [place] [address] [id number] [place] [id number] Dec, [facility] [address] [id number] [address] [place] [phone] Dec, [facility] [place] [address] [id number] [place] [id number] Dec, [facility] [place] [address] [id number] [place] [id number] November, [facility] [place] [address] [id number] [place] [id number] Sep, [facility] [place] [address] [id number] [place] [id number] Aug, [facility] [place] [address] [id number] [place] [id number] Jul, [facility] [place] [address] [id number] [place] [id number] Jul, [facility] [place] [address] [id number] [place] [id number] Jun, [facility] [address] [facility] [id number] [address] [place] [phone] Jun, [facility] [place] [address] [id number] [place] [id number] May, [facility] [address] [facility] [id number] [address] [place] [phone] May, [facility] [place] [address] [id number] [place] [id number] May, [facility] [place] [facility] [address] [facility] [id number] [address] [place] [phone] May, [facility] [address] [facility] [id number] [address] [place] [phone] May, [facility] [place] [address] [id number] [place] [id number] Apr, [facility] [place] [address] [id number] [place] [id number] Apr, [facility] [address] [facility] [id number] [address] [place] [id number] Apr, [facility] [address] [facility] [id number] [address] [place] [phone] Apr, [facility] [place] [address] [id number] [place] [id number] Mar, [facility] [place] [address] [id number] [place] [id number] Feb, [facility] [place] [address] [id number] [place] [id number] Feb, [facility] [place] [address] [id number] [place] [id number] Feb, [facility] [place] [address] [id number] [place] [id number] Jan, [facility] [place] [address] [id number] [place] [id number] Jan, [facility] [place] [address] [id number] [place] [id number] Jan, [facility] [place] [address] [id number] [place] [id number] Jan, [facility] [address] [id number] [place] [id number] Dec, [facility] [place] [address] [id number] [place] [id number] Dec, IMMUNIZATIONS No Known Immunizations SOCIAL HISTORY [...]
--- OUTSIDE RECORDS SUMMARY | 2019-07-26 20:25 | XMS REPORT ---
Author Author Rony VARELA LUANA Organization [facility] Address [address] [place] [address] Care Team Providers Care Teletype Telegrapher Name Role Phone LUANA VARELA Unavailable PROBLEMS Type Condition ICD9-CM Code [id number] Code Onset Dates Condition S tatus SNOMED Code Problem Episodic mood disorder F39 Active 79674676 Problem Mild intermittent asthma without complication J45. 20 Active 594693871 Problem Bilateral low back pain without sciatica M54.5 Active 965715650 ALLERGIES No Information ENCOUNTERS Encounter Location Date Diagnosis [facility] [id number] [place] [id number] Jan, [facility] [id number] [place] [address], [place] [id number] Jan, Strain of right knee, initial encounter S86.911A and Nasopharyngitis J00 [facility] [id number] [place] [address], [place] [id number] November, Nasopharyngitis J00 [facility] [address] [facility] [id number] [address] [place] [address] November, Poison cesar dermatitis L23.7 and Itching L29.9 [facility] [id number] [place] [id number] Sep, Irritant contact dermatitis due to plant s, except food L24.7 [facility] [address] [facility] [id number] [address] [place] [address] Sep, [facility] [address] [facility] [id number] [address] [place] [address] Feb, Poison cesar L23.7 [facility] [address] [id number] [place] [id number] Feb, Closed fracture of right ankle with rout ine healing, subsequent encounter S82.891D [facility] [place] [address] [id number] [place] [id number] Feb, Closed fracture of right ankle with rout ine healing, subsequent encounter S82.891D and Mild intermittent asthma without complication J45.20 [facility] [place] [address] [id number] [place] [id number] Oct, [facility] [place] [address] [id number] [place] [id number] Sep, Bilateral low back pain without sciatica M54.5 [facility] [place] [address] [id number] [place] [id number] Sep, [facility] [place] [address] [id number] [place] [id number] Aug, [facility] [place] [address] [id number] [place] [id number] Aug, [facility] [address] [id number] [address] [place] [id number] Aug, Encounter for other specifie d administrative purpose Z02.89 [facility] [place] [address] [id number] [place] [id number] Jul, Bilateral low back pain without sciatica M54.5 and Episodic mood disorder F39 [facility] [place] [address] [id number] [place] [id number] Jun, [facility] [place] [address] [id number] [place] [id number] Jun, [facility] [address] [id number] [place] [id number] Jun, [facility] [address] [id number] [place] [id number] Jun, [facility] [address] [id number] [place] [id number] May, [facility] [address] [id number] [place] [id number] May, [facility] [address] [id number] [place] [id number] May, [facility] [place] [address] [id number] [place] [id number] Apr, [facility] [address] [id number] [place] [id number] Apr, Dental examination Z01.20 [facility] [place] [address] [id number] [place] [id number] Apr, [facility] [place] [address] [id number] [place] [id number] Apr, [facility] [place] [address] [id number] [place] [id number] Mar, Tobacco abuse disorder 305.1 [facility] [place] [address] [id number] [place] [id number] Mar, Anxiety state, unspecified 300.00 [facility] [address] [id number] [place] [id number] Mar, [facility] [place] [address] [id number] [place] [id number] Feb, [facility] [place] [address] [id number] [place] [id number] Feb, [facility] [place] [address] [id number] [place] [id number] Feb, Routine gynecological examination V72.31 ; Visit for gynecologic examination V72.31 ; Pap test, as part of routine gynecological examination V76.2 ; Breast cancer screening V76.10 and Vaginal leukorrhea 623.5 [facility] [place] [address] [id number] [place] [id number] Feb, Lumbago 724.2 and Unspecified arthropath y, site unspecified 716.90 [facility] [place] [address] [id number] [place] [id number] Feb, [facility] [place] [address] [id number] [place] [id number] Feb, [facility] [place] [address] [id number] [place] [id number] Jan, Sciatica 724.3 and Anxiety state, unspec ified 300.00 [facility] [place] [address] [id number] [place] [id number] Dec, [facility] [place] [address] [id number] [place] [id number] Dec, Sciatica 724.3 and Anxiety state, unspec ified 300.00 [facility] [place] [address] [id number] [place] [id number] November, [facility] [place] [address] [id number] [place] [id number] November, Sciatica 724.3 and Poison cesar 692.6 [facility] [address] [facility] [id number] [address] [place] [address] Oct, [facility] [address] [id number] [address] [place] [address] Oct, [facility] [address] [id number] [address] [place] [address] Sep, [facility] [place] [address] [id number] [place] [id number] Sep, [facility] [address] [id number] [address] [place] [address] Sep, [facility] [place] [address] [id number] [place] [id number] Aug, [facility] [address] [id number] [address] [place] [address] Aug, [facility] [place] [address] [id number] [place] [id number] Jul, [facility] [address] [id number] [address] [place] [address] Jul, [facility] [place] [address] [id number] [place] [id number] Jul, [facility] [address] [facility] [facility] [id number] [address] [place] [address] Jul, [facility] [address] [id number] [address] [place] [address], [place] [address] Jun, [facility] [place] [address] [id number] [place] [id number] Jun, [facility] [address] [id number] [address] [place] [address], [place] [address] Jun, [facility] [address] [id number] [address] [place] [address], [place] [address] May, [facility] [place] [address] [id number] [place] [id number] May, [facility] [place] [address] [id number] [place] [id number] Apr, [facility] [address] [id number] [address] [place] [address], [place] [address] Apr, [facility] [place] [address] [id number] [place] [id number] Mar, [facility] [address] [id number] [address] [place] [address], [place] [address] Mar, [facility] [place] [address] [id number] [place] [id number] Mar, [facility] [address] [id number] [address] [place] [address], [place] [address] Mar, [facility] [place] [address] [id number] [place] [id number] Jan, [facility] [address] [id number] [address] [place] [address], [place] [address] Jan, [facility] [place] [address] [id number] [place] [id number] Dec, [facility] [address] [id number] [address] [place] [address], [place] [address] Dec, [facility] [place] [address] [id number] [place] [id number] Dec, [facility] [address] [id number] [address] [place] [address] Dec, [facility] [place] [address] [id number] [place] [id number] Dec, [facility] [address] [id number] [address] [place] [address] Dec, [facility] [place] [address] [id number] [place] [id number] November, [facility] [address] [id number] [address] [place] [address], [place] [address] November, [facility] [place] [address] [id number] [place] [id number] November, [facility] [address] [id number] [address] [place] [address] November, [facility] [place] [address] [id number] [place] [id number] Oct, [facility] [address] [id number] [address] [place] [address] Oct, [facility] [place] [address] [id number] [place] [id number] Sep, [facility] [address] [id number] [address] [place] [address] Sep, [facility] [place] [address] [id number] [place] [id number] Sep, [facility] [address] [id number] [address] [place] [address], [place] [address] Sep, [facility] [place] [address] [id number] [place] [id number] Aug, [facility] [address] [id number] [address] [place] [address], [place] [address] Aug, [facility] [place] [address] [id number] [place] [id number] Aug, [facility] [address] [id number] [address] [place] [address] Aug, [facility] [address] [id number] [facility] [place] [address] Jul, [facility] [place] [address] [id number] [place] [id number] Jul, [facility] [place] [address] [id number] [place] [id number] Jul, [facility] [address] [id number] [address] [place] [address], [place] [address] Jul, [facility] [place] [address] [id number] [place] [id number] Jul, [facility] [address] [id number] [address] [place] [address], [place] [address] Jul, [facility] [place] [address] [id number] [place] [id number] Apr, [facility] [address] [id number] [address] [place] [address], [place] [address] Apr, [facility] [place] [address] [id number] [place] [id number] Apr, [facility] [place] [address] [id number] [place] [id number] Mar, [facility] [place] [address] [id number] [place] [id number] Feb, [facility] [address] [id number] [address] [place] [address], [place] [address] Feb, [facility] [place] [address] [id number] [place] [id number] Jan, [facility] [address] [id number] [address] [place] [address], [place] [address] Dec, [facility] [place] [address] [id number] [place] [id number] Dec, [facility] [address] [id number] [address] [place] [address], [place] [address] Dec, [facility] [place] [address] [id number] [place] [id number] Dec, [facility] [place] [address] [id number] [place] [id number] November, [facility] [place] [address] [id number] [place] [id number] Sep, [facility] [place] [address] [id number] [place] [id number] Aug, [facility] [place] [address] [id number] [place] [id number] Jul, [facility] [place] [address] [id number] [place] [id number] Jul, [facility] [place] [address] [id number] [place] [id number] Jun, [facility] [address] [facility] [id number] [address] [place] [address] Jun, [facility] [place] [address] [id number] [place] [id number] May, [facility] [address] [facility] [id number] [address] [place] [address] May, [facility] [place] [address] [id number] [place] [id number] May, [facility] [address] [facility] [id number] [address] [place] [address] May, [facility] [address] [facility] [facility] [id number] [address] [place] [address] May, [facility] [place] [address] [id number] [place] [id number] Apr, [facility] [place] [address] [id number] [place] [id number] Apr, [facility] [address] [facility] [id number] [address] [place] [address] Apr, [facility] [address] [facility] [facility] [id number] [address] [place] [address] Apr, [facility] [place] [address] [id number] [place] [id number] Mar, [facility] [place] [address] [id number] [place] [id number] Feb, [facility] [place] [address] [id number] [place] [id number] Feb, [facility] [place] [address] [id number] [place] [id number] Feb, [facility] [place] [address] [id number] [place] [id number] Jan, [facility] [place] [address] [id number] [place] [id number] Jan, [facility] [place] [address] [id number] [place] [id number] Jan, [facility] [place] [address] [id number] [place] [id number] Jan, [facility] [place] [address] [id number] [place] [id number] Dec, [facility] [place] [address] [id number] [place] [id number] Dec, IMMUNIZATIONS No Known Immunizations SOCIAL HISTORY Never Assessed REASON FOR VISIT PLAN OF CARE VITAL SIGNS MEDICATIONS Unknown [...]
--- OUTSIDE RECORDS SUMMARY | 2019-07-26 20:25 | XMS REPORT ---
Author Author Rony VARELA Organization [facility] Address [address] [place] [address] Care Team Providers Care Technical Expert Name Role Phone LUANA VARELA Unavailable PROBLEMS Type Condition ICD9-CM Code MDA87-WP Code Onset Dates Condition S tatus SNOMED Code Problem Episodic mood disorder F39 Active 64204752 Problem Mild intermittent asthma without complication J45. 20 Active 539098071 Problem Bilateral low back pain without sciatica M54.5 Active [id number] ALLERGIES No Information ENCOUNTERS Encounter Location Date Diagnosis [facility] [id number] [place] [address], S [id number] Jan, Strain of right knee, subsequent encount er S86.911D [facility] [id number] [place] [address], [place] [id number] Jan, Strain of right knee, initial encounter S86.911A and Nasopharyngitis J00 [facility] [id number] [place] [address], [place] [id number] November, Nasopharyngitis J00 [facility] [address] [id number] [address] [place] [address] November, Poison cesar dermatitis L23.7 and Itching L29.9 [facility] [id number] [place] [address], [place] [id number] Sep, Irritant contact dermatitis due to plant s, except food L24.7 [facility] [address] [facility] [id number] [address] [place] [address] Sep, [facility] [address] [facility] [id number] [address] [place] [address] Feb, Poison cesar L23.7 [facility] [id number] [place] [id number] Feb, Closed fracture of right ankle with rout ine healing, subsequent encounter S82.891D [facility] [place] [address] [id number] [place] [id number] Feb, Closed fracture of right ankle with rout ine healing, subsequent encounter S82.891D and Mild intermittent asthma without complication J45.20 [facility] [place] [address] [id number] [place] [id number] Oct, [facility] [place] [address] [id number] [place] [id number] Sep, Bilateral low back pain without sciatica M54.5 [facility] [place] [address] [id number] [place] [id number] Sep, [facility] [place] [address] [id number] [place] [id number] Aug, [facility] [place] [address] [id number] [place] [id number] Aug, [facility] [address] [id number] [address] [place] [address] [id number] Aug, Encounter for other specifie d administrative purpose Z02.89 [facility] [place] [address] [id number] [place] [id number] Jul, Bilateral low back pain without sciatica M54.5 and Episodic mood disorder F39 [facility] [place] [address] [id number] [place] [id number] Jun, [facility] [place] [address] [id number] [place] [id number] Jun, [facility] [address] [address] [id number] [id number] Jun, [facility] [address] [id number] [place] [id number] Jun, [facility] [address] [id number] [place] [id number] May, [facility] [address] [id number] [id number] May, [facility] [address] [id number] [place] [id number] May, [facility] [place] [address] [id number] [place] [id number] Apr, [facility] [address] [id number] [place] [id number] Apr, Dental examination Z01.20 [facility] [place] [address] [id number] [place] [id number] Apr, [facility] [place] [address] [id number] [place] [id number] Apr, [facility] [place] [address] [id number] [place] [id number] Mar, Tobacco abuse disorder 305.1 [facility] [place] [address] [id number] [place] [id number] Mar, Anxiety state, unspecified 300.00 [facility] [address] [id number] [id number] Mar, [facility] [place] [address] [id number] [place] [id number] Feb, [facility] [place] [address] [id number] [place] [id number] Feb, [facility] [place] [address] [id number] [place] [id number] Feb, Routine gynecological examination V72.31 ; Visit for gynecologic examination V72.31 ; Pap test, as part of routine gynecological examination V76.2 ; Breast cancer screening V76.10 and Vaginal leukorrhea 623.5 [facility] [place] [address] [id number] [place] [id number] Feb, Lumbago 724.2 and Unspecified arthropath y, site unspecified 716.90 [facility] [place] [address] [id number] [place] [id number] Feb, [facility] [place] [address] [id number] [place] [id number] Feb, [facility] [place] [address] [id number] [place] [id number] Jan, Sciatica 724.3 and Anxiety state, unspec ified 300.00 [facility] [place] [address] [id number] [place] [id number] Dec, [facility] [place] [address] [id number] [place] [id number] Dec, Sciatica 724.3 and Anxiety state, unspec ified 300.00 [facility] [place] [address] [id number] [place] [id number] November, [facility] [place] [address] [id number] [place] [id number] November, Sciatica 724.3 and Poison cesar 692.6 [facility] [address] [facility] [id number] [address] [place] [address] Oct, [facility] [address] [id number] [address] [place] [address] Oct, [facility] [address] [facility] [id number] [address] [place] [address] Sep, [facility] [place] [address] [id number] [place] [id number] Sep, [facility] [address] [id number] [address] [place] [address] Sep, [facility] [place] [address] [id number] [place] [id number] Aug, [facility] [address] [facility] [id number] [address] [place] [address] Aug, [facility] [place] [address] [id number] [place] [id number] Jul, [facility] [address] [facility] [id number] [address] [place] [address] Jul, [facility] [place] [address] [id number] [place] [id number] Jul, [facility] [address] [id number] [facility] [place] [address] Jul, [facility] [address] [id number] [address] [place] [address], [place] [address] Jun, [facility] [place] [address] [id number] [place] [id number] Jun, [facility] [address] [id number] [address] [place] [address], [place] [address] Jun, [facility] [address] [id number] [address] [place] [address], [place] [address] May, [facility] [place] [address] [id number] [place] [id number] May, [facility] [place] [address] [id number] [place] [id number] Apr, [facility] [address] [facility] [id number] [address] [place] [address], [place] [address] Apr, [facility] [place] [address] [id number] [place] [id number] Mar, [facility] [address] [id number] [address] [place] [address], [place] [address] Mar, [facility] [place] [address] [id number] [place] [id number] Mar, [facility] [address] [id number] [address] [place] [address], [place] [address] Mar, [facility] [place] [address] [id number] [place] [id number] Jan, [facility] [address] [id number] [address] [place] [address], [place] [address] Jan, [facility] [place] [address] [id number] [place] [id number] Dec, [facility] [address] [id number] [address] [place] [address], [place] [address] Dec, [facility] [place] [address] [id number] [place] [id number] Dec, [facility] [address] [id number] [address] [place] [address], [place] [address] Dec, [facility] [place] [address] [id number] [place] [id number] Dec, [facility] [address] [facility] [id number] [address] [place] [address] Dec, [facility] [place] [address] [id number] [place] [id number] November, [facility] [address] [id number] [address] [place] [address], [place] [address] November, [facility] [place] [address] [id number] [place] [id number] November, [facility] [address] [facility] [id number] [address] [place] [address] November, [facility] [place] [address] [id number] [place] [id number] Oct, [facility] [address] [id number] [address] [place] [address] Oct, [facility] [place] [address] [id number] [place] [id number] Sep, [facility] [address] [facility] [id number] [address] [place] [address] Sep, [facility] [place] [address] [id number] [place] [id number] Sep, [facility] [address] [id number] [address] [place] [address] Sep, [facility] [place] [address] [id number] [place] [id number] Aug, [facility] [address] [id number] [address] [place] [address], [place] [address] Aug, [facility] [place] [address] [id number] [place] [id number] Aug, [facility] [address] [facility] [id number] [address] [place] [address] Aug, [facility] [address] [id number] [address] [place] [address], [place] [address] Jul, [facility] [place] [address] [id number] [place] [id number] Jul, [facility] [place] [address] [id number] [place] [id number] Jul, [facility] [address] [id number] [address] [place] [address] Jul, [facility] [place] [address] [id number] [place] [id number] Jul, [facility] [address] [id number] [address] [place] [address], [place] [address] Jul, [facility] [place] [address] [id number] [place] [id number] Apr, [facility] [address] [id number] [address] [place] [address] Apr, [facility] [place] [address] [id number] [place] [id number] Apr, [facility] [place] [address] [id number] [place] [id number] Mar, [facility] [place] [address] [id number] [place] [id number] Feb, [facility] [address] [id number] [address] [place] [address], [place] [address] Feb, [facility] [place] [address] [id number] [place] [id number] Jan, [facility] [address] [id number] [address] [place] [address] Dec, [facility] [place] [address] [id number] [place] [id number] Dec, [facility] [address] [id number] [address] [place] [address] Dec, [facility] [place] [address] [id number] [place] [id number] Dec, [facility] [place] [address] [id number] [place] [id number] November, [facility] [place] [address] [id number] [place] [id number] Sep, [facility] [place] [address] [id number] [place] [id number] Aug, [facility] [place] [address] [id number] [place] [id number] Jul, [facility] [place] [address] [id number] [place] [id number] Jul, [facility] [place] [address] [id number] [place] [id number] Jun, [facility] [address] [facility] [id number] [address] [place] [address] Jun, [facility] [place] [address] [id number] [place] [id number] May, [facility] [address] [facility] [id number] [address] [place] [address] May, [facility] [place] [address] [id number] [place] [id number] May, [facility] [address] [facility] [id number] [address] [place] [address] May, [facility] [address] [facility] [id number] [address] [place] [address] May, [facility] [place] [address] [id number] [place] [id number] Apr, [facility] [place] [address] [id number] [place] [id number] Apr, [facility] [address] [facility] [id number] [address] [place] [address] Apr, [facility] [address] [facility] [id number] [address] [place] [address] Apr, [facility] [place] [address] [id number] [place] [id number] Mar, [facility] [place] [address] [id number] [place] [id number] Feb, [facility] [place] [address] [id number] [place] [id number] Feb, [facility] [place] [address] [id number] [place] [id number] Feb, [facility] [place] [address] [id number] [place] [id number] Jan, [facility] [place] [address] [id number] [place] [id number] Jan, [facility] [place] [address] [id number] [place] [id number] Jan, [facility] [place] [address] [id number] [place] [id number] Jan, [facility] [place] [address] [id number] [place] [id number] Dec, [facility] [place] [address] [id number] [place] [id number] Dec, IMMUNIZATIONS No Known Immunizations SOCIAL HISTORY [...]
--- OUTSIDE RECORDS SUMMARY | 2019-07-26 20:25 | XMS REPORT ---
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 20 Active 768736504 Problem Bilateral low back pain without sciatica M54.5 Active [id number] ALLERGIES No Information ENCOUNTERS Encounter Location Date Diagnosis [facility] [id number] [place] [address], [place] [id number] Jan, Strain of right knee, subsequent encount er S86.911D [facility] [id number] [place] [address], [place] [id number] Jan, Strain of right knee, initial encounter S86.911A and Nasopharyngitis J00 [facility] [id number] [place] [address], [place] [id number] November, Nasopharyngitis J00 [facility] [id number] [place] [id number] November, Poison cesar dermatitis L23.7 and Itching L29.9 [facility] [id number] [place] [address], [place] [id number] Sep, Irritant contact dermatitis due to plant s, except food L24.7 [facility] [address] [facility] [id number] [address] [place] [id number] Sep, [facility] [address] [facility] [id number] [address] [place] [address] Feb, Poison cesar L23.7 [facility] [id number] [place] [id number] Feb, Closed fracture of right ankle with rout ine healing, subsequent encounter S82.891D [facility] [place] [address] [id number] [place] [id number] Feb, Closed fracture of right ankle with rout ine healing, subsequent encounter S82.891D and Mild intermittent asthma without complication J45.20 [facility] [place] [address] [id number] [place] [id number] Oct, [facility] [place] [address] [id number] [place] [id number] Sep, Bilateral low back pain without sciatica M54.5 [facility] [place] [address] [id number] [place] [id number] Sep, [facility] [place] [address] [id number] [place] [id number] Aug, [facility] [place] [address] [id number] [place] [id number] Aug, [facility] [address] [id number] [address] [place] [address] [id number] Aug, Encounter for other specifie d administrative purpose Z02.89 [facility] [place] [address] [id number] [place] [id number] Jul, Bilateral low back pain without sciatica M54.5 and Episodic mood disorder F39 [facility] [place] [address] [id number] [place] [id number] Jun, [facility] [place] [address] [id number] [place] [id number] Jun, [facility] [address] [id number][place] [id number] Jun, [facility] [address] [id number][place] [id number] Jun, [facility] [address] [id number][place] [id number] May, [facility] [address] [id number][place] [id number] May, [facility] [address] [id number] [place] [id number] May, [facility] [place] [address] [id number] [place] [id number] Apr, [facility] [address] [id number] [place] [id number] Apr, Dental examination Z01.20 [facility] [place] [address] [id number] [place] [id number] Apr, [facility] [place] [address] [id number] [place] [id number] Apr, [facility] [place] [address] [id number] [place] [id number] Mar, Tobacco abuse disorder 305.1 [facility] [place] [address] [id number] [place] [id number] Mar, Anxiety state, unspecified 300.00 [facility] [address] [id number][place] [id number] Mar, [facility] [place] [address] [id number] [place] [id number] Feb, [facility] [place] [address] [id number] [place] [id number] Feb, [facility] [place] [address] [id number] [place] [id number] Feb, Routine gynecological examination V72.31 ; Visit for gynecologic examination V72.31 ; Pap test, as part of routine gynecological examination V76.2 ; Breast cancer screening V76.10 and Vaginal leukorrhea 623.5 [facility] [place] [address] [id number] [place] [id number] Feb, Lumbago 724.2 and Unspecified arthropath y, site unspecified 716.90 [facility] [place] [address] [id number] [place] [id number] Feb, [facility] [place] [address] [id number] [place] [id number] Feb, [facility] [place] [address] [id number] [place] [id number] Jan, Sciatica 724.3 and Anxiety state, unspec ified 300.00 [facility] [place] [address] [id number] [place] [id number] Dec, [facility] [place] [address] [id number] [place] [id number] Dec, Sciatica 724.3 and Anxiety state, unspec ified 300.00 [facility] [place] [address] [id number] [place] [id number] November, [facility] [place] [address] [id number] [place] [id number] November, Sciatica 724.3 and Poison cesar 692.6 [facility] [address] [facility] [id number] [address] [place] [phone] Oct, [facility] [address] [id number] [address] [place] [id number] Oct, [facility] [address] [facility] [id number] [address] [place] [address] Sep, [facility] [place] [address] [id number] [place] [id number] Sep, [facility] [address] [id number] [address] [place] [phone] Sep, [facility] [place] [address] [id number] [place] [id number] Aug, [facility] [address] [facility] [id number] [address] [place] [id number] Aug, [facility] [place] [address] [id number] [place] [id number] Jul, [facility] [address] [facility] [id number] [address] [place] [phone] Jul, [facility] [place] [address] [id number] [place] [id number] Jul, [facility] [address] [id number] [facility] [place] [address] Jul, [facility] [address] [id number] [address] [place] [address], [place] [address] Jun, [facility] [place] [address] [id number] [place] [id number] Jun, [facility] [address] [id number] [address] [place] [address], [place] [address] Jun, [facility] [address] [id number] [address] [place] [address], [place] [address] May, [facility] [place] [address] [id number] [place] [id number] May, [facility] [place] [address] [id number] [place] [id number] Apr, [facility] [address] [facility] [id number] [address] [place] [address], [place] [address] Apr, [facility] [place] [address] [id number] [place] [id number] Mar, [facility] [address] [id number] [address] [place] [address], [place] [address] Mar, [facility] [place] [address] [id number] [place] [id number] Mar, [facility] [address] [id number] [address] [place] [address], [place] [address] Mar, [facility] [place] [address] [id number] [place] [id number] Jan, [facility] [address] [id number] [address] [place] [address], [place] [address] Jan, [facility] [place] [address] [id number] [place] [id number] Dec, [facility] [address] [id number] [address] [place] [address], [place] [address] Dec, [facility] [place] [address] [id number] [place] [id number] Dec, [facility] [address] [id number] [address] [place] [address], [place] [address] Dec, [facility] [place] [address] [id number] [place] [id number] Dec, [facility] [address] [facility] [id number] [address] [place] [phone] Dec, [facility] [place] [address] [id number] [place] [id number] November, [facility] [address] [id number] [address] [place] [address], [place] [address] November, [facility] [place] [address] [id number] [place] [id number] November, [facility] [address] [facility] [id number] [address] [place] [address] November, [facility] [place] [address] [id number] [place] [id number] Oct, [facility] [address] [id number] [address] [place] [phone] Oct, [facility] [place] [address] [id number] [place] [id number] Sep, [facility] [address] [facility] [id number] [address] [place] [id number] Sep, [facility] [place] [address] [id number] [place] [id number] Sep, [facility] [address] [id number] [address] [place] [id number] Sep, [facility] [place] [address] [id number] [place] [id number] Aug, [facility] [address] [id number] [address] [place] [address], [place] [address] Aug, [facility] [place] [address] [id number] [place] [id number] Aug, [facility] [address] [facility] [id number] [address] [place] [id number] Aug, [facility] [address] [id number] [address] [place] [address], [place] [address] Jul, [facility] [place] [address] [id number] [place] [id number] Jul, [facility] [place] [address] [id number] [place], [place] [id number] Jul, [facility] [address] [id number] [address] [place] [id number] Jul, [facility] [place] [address] [id number] [place] [id number] Jul, [facility] [address] [id number] [address] [place] [address], [place] [address] Jul, [facility] [place] [address] [id number] [place] [id number] Apr, [facility] [address] [id number] [address] [place] [address] Apr, [facility] [place] [address] [id number] [place] [id number] Apr, [facility] [place] [address] [id number] [place], [place] [id number] Mar, [facility] [place] [address] [id number] [place], [place] [id number] Feb, [facility] [address] [id number] [address] [place] [address], [place] [address] Feb, [facility] [place] [address] [id number] [place] [id number] Jan, [facility] [address] [id number] [address] [place] [address] Dec, [facility] [place] [address] [id number] [place] [id number] Dec, [facility] [address] [id number] [address] [place] [address] Dec, [facility] [place] [address] [id number] [place] [id number] Dec, [facility] [place] [address] [id number] [place] [id number] November, [facility] [place] [address] [id number] [place], [place] [id number] Sep, [facility] [place] [address] [id number] [place] [id number] Aug, [facility] [place] [address] [id number] [place], [place] [id number] Jul, [facility] [place] [address] [id number] [place] [id number] Jul, [facility] [place] [address] [id number] [place] [id number] Jun, [facility] [address] [facility] [id number] [address] [place] [id number] Jun, [facility] [place] [address] [id number] [place] [id number] May, [facility] [address] [facility] [id number] [address] [place] [address] May, [facility] [place] [address] [id number] [place] [id number] May, [facility] [address] [facility] [id number] [address] [place] [id number] May, [facility] [address] [facility] [id number] [address] [place] [id number] May, [facility] [place] [address] [id number] [place] [id number] Apr, [facility] [place] [address] [id number] [place] [id number] Apr, [facility] [address] [facility] [id number] [address] [place] [address] Apr, [facility] [address] [facility] [id number] [address] [place] [address] Apr, [facility] [place] [address] [id number] [place] [id number] Mar, [facility] [place] [address] [id number] [place] [id number] Feb, [facility] [place] [address] [id number] [place] [id number] Feb, [facility] [place] [address] [id number] [place] [id number] Feb, [facility] [place] [address] [id number] [place] [id number] Jan, [facility] [place] [address] [id number] [place] [id number] Jan, [facility] [place] [address] [id number] [place], [place] [id number] Jan, [facility] [place] [address] [id number] [place], [place] [id number] Jan, [facility] [place] [address] [id number] [place], [place] [id number] Dec, [facility] [place] [address] [id number] [place], [place] [id number] Dec, IMMUNIZATIONS No Known Immunizations SOCIAL HISTORY Never Assessed REASON FOR VISIT PLAN OF CARE VITAL SIGNS Height 62.5 in 2014-08-18 Weight 171 lbs 2014-08-18 Temperature 98.8 degrees Fahrenheit 2014-08-18 Heart Rate 76 bpm 2014-08-18 Respiratory Rate 16 2014-08-18 Blood pressure systolic 120 mmHg 2014-08-18 Blood pressure diastolic 74 mmHg 2014-08-18 MEDICATIONS No Known Medications RESULTS No Results PROCEDURES No Known procedures INSTRUCTIONS MEDICATIONS ADMINISTERED No Known Medications MEDICAL (GENERAL) HISTORY Type Description Date Medical History asthma Medical History anxiety Medical History osteoarthritis Surgical History tubal ligation 1992 Hospitalization History [facility]ar November 2014 Hospitalization History right ankle fracture, has a brace on 12/2016
--- OUTSIDE RECORDS SUMMARY | 2019-07-26 20:25 | XMS REPORT ---
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 20 Active [id number] Problem Bilateral low back pain without sciatica M54.5 Active [id number] ALLERGIES No Information ENCOUNTERS Encounter Location Date Diagnosis [facility] [id number] [place] [address], [place] [phone] Jan, Strain of right knee, subsequent encount er S86.911D [facility] [id number] [place] [address], [place] [id number] Jan, Strain of right knee, initial encounter S86.911A and Nasopharyngitis J00 [facility] [id number] [place] [address], [place] [phone] November, Nasopharyngitis J00 [facility] [address] [id number] [address] [place] [phone] November, Poison cesar dermatitis L23.7 and Itching L29.9 [facility] [id number] [place] [address], [place] [id number] Sep, Irritant contact dermatitis due to plant s, except food L24.7 [facility] [address] [facility] [id number] [address] [place] [address] Sep[facility] [address] [facility] [id number] [address] [place] [address] Feb, Poison cesar L23.7 [facility] [id number] [place] [id number] Feb, Closed fracture of right ankle with rout ine healing, subsequent encounter S82.891D [facility] [place] [address] [id number] [place] [id number] Feb, Closed fracture of right ankle with rout ine healing, subsequent encounter S82.891D and Mild intermittent asthma without complication J45.20 [facility] [place] [address] [id number] [place] [id number] Oct, [facility] [place] [address] [id number] [place] [id number] Sep, Bilateral low back pain without sciatica M54.5 [facility] [place] [address] [id number] [place] [id number] Sep, [facility] [place] [address] [id number] [place] [id number] Aug, [facility] [address] [id number] [place] [id number] Aug, [facility] [address] [id number] [address] [place] [address] [phone] Aug, Encounter for other specifie d administrative purpose Z02.89 [facility] [place] [address] [id number] [place] [id number] Jul, Bilateral low back pain without sciatica M54.5 and Episodic mood disorder F39 [facility] [place] [address] [id number] [place] [id number] Jun, [facility] [address] [id number] [place] [id number] Jun, [facility] [address] [id number] [phone] Jun, [facility] [address] [id number][place] [phone] Jun, [facility] [address] [id number][place] [id number] May, [facility] [address] [id number][place] [phone] May, [facility] [address] [id number] [place] [phone] May, [facility] [place] [address] [id number] [place] [id number] Apr, [facility] [address] [id number] [place] [phone] Apr, Dental examination Z01.20 [facility] [place] [address] [id number] [place] [id number] Apr, [facility] [place] [address] [id number] [place] [id number] Apr, [facility] [place] [address] [id number] [place] [id number] Mar, Tobacco abuse disorder 305.1 [facility] [place] [address] [id number] [place] [id number] Mar, Anxiety state, unspecified 300.00 [facility] [address] [id number][place] [id number] Mar, [facility] [place] [address] [id number] [place] [id number] Feb, [facility] [place] [address] [id number] [place] [id number] Feb, [facility] [place] [address] [id number] [place] [id number] Feb, Routine gynecological examination V72.31 ; Visit for gynecologic examination V72.31 ; Pap test, as part of routine gynecological examination V76.2 ; Breast cancer screening V76.10 and Vaginal leukorrhea 623.5 [facility] [place] [address] [id number] [place] [id number] Feb, Lumbago 724.2 and Unspecified arthropath y, site unspecified 716.90 [facility] [place] [address] [id number] [place] [id number] Feb, [facility] [place] [address] [id number] [place] [id number] Feb, [facility] [place] [address] [id number] [place] [id number] Jan, Sciatica 724.3 and Anxiety state, unspec ified 300.00 [facility] [place] [address] [id number] [place] [id number] Dec, [facility] [place] [address] [id number] [place] [id number] Dec, Sciatica 724.3 and Anxiety state, unspec ified 300.00 [facility] [place] [address] [id number] [place] [id number] November, [facility] [place] [address] [id number] [place] [id number] November, Sciatica 724.3 and Poison cesar 692.6 [facility] [address] [facility] [id number] [address] [place] [phone] Oct, [facility] [address] [id number] [address] [place] [address] Oct, [facility] [address] [facility] [id number] [address] [place] [phone] Sep, [facility] [place] [address] [id number] [place] [id number] Sep, [facility] [address] [id number] [address] [place] [phone] Sep, [facility] [place] [address] [id number] [place] [id number] Aug, [facility] [address] [facility] [id number] [address] [place] [phone] Aug, [facility] [place] [address] [id number] [place] [id number] Jul, [facility] [address] [facility] [id number] [address] [place] [phone] Jul, [facility] [place] [address] [id number] [place] [id number] Jul, [facility] [address] [id number] [facility] [place] [address] Jul, [facility] [address] [id number] [address] [place] [address], [place] [address] Jun, [facility] [place] [address] [id number] [place] [id number] Jun, [facility] [address] [id number] [address] [place] [address], [place] [address] Jun, [facility] [address] [id number] [address] [place] [address], [place] [address] May, [facility] [place] [address] [id number] [place] [id number] May, [facility] [place] [address] [id number] [place], [place] [id number] Apr, [facility] [address] [facility] [id number] [address] [place] [address], [place] [address] Apr, [facility] [place] [address] [id number] [place] [id number] Mar, [facility] [address] [id number] [address] [place] [address], [place] [address] Mar, [facility] [place] [address] [id number] [place] [id number] Mar, [facility] [address] [id number] [address] [place] [address], [place] [address] Mar, [facility] [place] [address] [id number] [place] [id number] Jan, [facility] [address] [id number] [address] [place] [address], [place] [address] Jan, [facility] [place] [address] [id number] [place] [id number] Dec, [facility] [address] [id number] [address] [place] [address], [place] [address] Dec, [facility] [place] [address] [id number] [place] [id number] Dec, [facility] [address] [id number] [address] [place] [address], [place] [address] Dec, [facility] [place] [address] [id number] [place] [id number] Dec, [facility] [address] [facility] [id number] [address] [place] [address] Dec, [facility] [place] [address] [id number] [place] [id number] November, [facility] [address] [id number] [address] [place] [address], [place] [address] November, [facility] [place] [address] [id number] [place] [id number] November, [facility] [address] [facility] [id number] [address] [place] [address] November, [facility] [place] [address] [id number] [place] [id number] Oct, [facility] [address] [id number] [address] [place] [address] Oct, [facility] [place] [address] [id number] [place] [id number] Sep, [facility] [address] [facility] [id number] [address] [place] [address] Sep, [facility] [place] [address] [id number] [place] [id number] Sep, [facility] [address] [id number] [address] [place] [address] Sep, [facility] [place] [address] [id number] [place] [id number] Aug, [facility] [address] [id number] [address] [place] [address], [place] [address] Aug, [facility] [place] [address] [id number] [place] [id number] Aug, [facility] [address] [facility] [id number] [address] [place] [address] Aug, [facility] [address] [id number] [address] [place] [address], [place] [address] Jul, [facility] [place] [address] [id number] [place] [id number] Jul, [facility] [place] [address] [id number] [place] [id number] Jul, [facility] [address] [id number] [address] [place] [phone] Jul, [facility] [place] [address] [id number] [place] [id number] Jul, [facility] [address] [id number] [address] [place] [address], [place] [address] Jul, [facility] [place] [address] [id number] [place] [id number] Apr, [facility] [address] [id number] [address] [place] [address] Apr, [facility] [place] [address] [id number] [place] [id number] Apr, [facility] [place] [address] [id number] [place], [place] [id number] Mar, [facility] [place] [address] [id number] [place], [place] [id number] Feb, [facility] [address] [id number] [address] [place] [address], [place] [address] Feb, [facility] [place] [address] [id number] [place] [id number] Jan, [facility] [address] [id number] [address] [place] [address] Dec, [facility] [place] [address] [id number] [place] [id number] Dec, [facility] [address] [id number] [address] [place] [address] Dec, [facility] [place] [address] [id number] [place] [id number] Dec, [facility] [place] [address] [id number] [place] [id number] November, [facility] [place] [address] [id number] [place] [id number] Sep, [facility] [place] [address] [id number] [place], [place] [id number] Aug, [facility] [place] [address] [id number] [place] [id number] Jul, [facility] [place] [address] [id number] [place], [place] [id number] Jul, [facility] [place] [address] [id number] [place], [place] [id number] Jun, [facility] [address] [facility] [id number] [address] [place] [address] Jun, [facility] [place] [address] [id number] [place], [place] [id number] May, [facility] [address] [facility] [id number] [address] [place] [address] May, [facility] [place] [address] [id number] [place] [id number] May, [facility] [address] [facility] [id number] [address] [place] [address] May, [facility] [address] [facility] [id number] [address] [place] [address] May, [facility] [place] [address] [id number] [place] [id number] Apr, [facility] [place] [address] [id number] [place] [id number] Apr, [facility] [address] [facility] [id number] [address] [place] [address] Apr, [facility] [address] [facility] [id number] [address] [place] [address] Apr, [facility] [place] [address] [id number] [place] [id number] Mar, [facility] [place] [address] [id number] [place] [id number] Feb, [facility] [place] [address] [id number] [place] [id number] Feb, [facility] [place] [address] [id number] [place] [id number] Feb, [facility] [place] [address] [id number] [place] [id number] Jan, [facility] [place] [address] [id number] [place] [id number] Jan, [facility] [place] [address] [id number] [place], [place] [id number] Jan, [facility] [place] [address] [id number] [place] [id number] Jan, [facility] [place] [address] [id number] [place] [id number] Dec, [facility] [place] [address] [id number] [place] [id number] Dec, IMMUNIZATIONS No Known Immunizations SOCIAL HISTORY [...]
--- OUTSIDE RECORDS SUMMARY | 2019-07-26 20:26 | XMS REPORT | Continuity of Care Document ---
Author Organization Unknown Address Unknown Phone Unavailable Allergies Active Description Code Type Severity Reaction [...] 02/22/2010 Ot 625.9 01/24/2012 LUANA VARELA APRN 305.1 current smoker 01/24/2012 LUANA VARELA APRN 493.90 ASTHMA 01/24/2012 LUANA VARELA APRN R 786.2 cough 01/24/2012 LUANA VARELA APRN 305.1 current smoker 01/24/2012 LUANA VARELA APRN 493.90 ASTHMA 01/24/2012 LUANA VARELA APRN R 786.2 cough 01/24/2012 LUANA VARELA APRN 305.1 current smoker 01/24/2012 LUANA VARELA APRN 493.90 ASTHMA 01/24/2012 LUANA VARELA APRN R 786.2 cough 01/24/2012 305.1 curr ent smoker 01/24/2012 493.90 ASTHMA 01/24/2012 786.2 cough 01/24/2012 305.1 curr ent smoker 01/24/2012 493.90 ASTHMA 01/24/2012 786.2 cough [...] NICHOLE CHAMPAGNE, LUANA R 493.90 ASTHMA 01/24/2012 VARELALUANA LOVE APRN R 786.2 cough 01/24/2012 SEVERINO DO, ODETTE K 305.1 current smoker 01/24/2012 SEVERINO DO, ODETTE K 493.90 ASTHMA 01/24/2012 SEVERINO DO, ODETTE K 786.2 cough 01/24/2012 SEVERINO DO, ODETTE K 305.1 current smoker 01/24/2012 SEVERINO DO, ODETTE K 493.90 ASTHMA 01/24/2012 SEVERINO DO, ODETTE K 786.2 cough 02/10/2012 LUANA VARELA APRN R 724.2 BACK PAIN, LOWER 02/10/2012 LUANA VARELA APRN R 724.3 SCIATICA 02/10/2012 LUANA VARELA APRN R 724.2 BACK PAIN, LOWER 02/10/2012 LUANA VARELA APRN R 724.3 SCIATICA 02/10/2012 LUANA VARELA APRN R 724.2 BACK PAIN, LOWER 02/10/2012 LUANA VARELA APRN R 724.3 SCIATICA 02/10/2012 724.2 BACK PAIN, LOWER 02/10/2012 724.3 SCIATICA 02/10/2012 724.2 BACK PAIN, LOWER 02/10/2012 724.3 SCIATICA 02/10/2012 LUANA VARELA APRN R 724.2 BACK PAIN, LOWER 02/10/2012 LUANA VARELA APRN R 724.3 SCIATICA 02/10/2012 SEVERINO DO, ODETTE [...] APRN 724.3 SCIATICA 02/10/2012 LUANA VARELA APRN 724.2 [...] ODETTE K 300.00 AN ANXIETY UNSPEC 05/25/2012 VARELA APRN, LUANA Strong 716.90 ARTHRITIS/ ARTHROPATHY, UNSPECIFIED 05/25/2012 VARELA MAHI, LUANA Strong 716.90 ARTHRITIS/ ARTHROPATHY, UNSPECIFIED 05/25/2012 VARELA MAHI, LUANA Strong 716.90 ARTHRITIS/ ARTHROPATHY, UNSPECIFIED 05/25/2012 716.90 ART HRITIS/ ARTHROPATHY, UNSPECIFIED 05/25/2012 716.90 ART HRITIS/ ARTHROPATHY, UNSPECIFIED 05/25/2012 VARELA MAHI, LUANA Strong 716.90 ARTHRITIS/ ARTHROPATHY, UNSPECIFIED 05/25/2012 [...] K 716.90 ARTHRITIS/ ARTHROPATHY, UNSPECIFIED 05/25/2012 VARELAIVAN CHAMPAGNE, LUANA Strong 716.90 ARTHRITIS/ ARTHROPATHY, UNSPECIFIED 05/25/2012 VARELA MAHI, LUANA Strong 716.90 ARTHRITIS/ ARTHROPATHY, UNSPECIFIED 05/25/2012 SEVERINO DO, ODETTE K 716.90 ARTHRITIS/ ARTHROPATHY, UNSPECIFIED 05/25/2012 SEVERINO DO, ODETTE K 716.90 ARTHRITIS/ ARTHROPATHY, UNSPECIFIED 06/29/2012 LUANA VARELA APRN 111.0 TINEA VERSICOLOR 06/29/2012 LUANA VARELA APRN 111.0 TINEA VERSICOLOR 06/29/2012 111.0 DAVID A VERSICOLOR 06/29/2012 111.0 DAVID A VERSICOLOR 06/29/2012 LUANA VARELA APRN 111.0 TINEA [...] ODETTE K 111.0 TINEA VERSICOLOR 11/30/2012 465.9 UPPE R RESPIRATORY INFECTION 11/30/2012 LUANA VARELA APRN 465.9 [...] LOVE APRN 465.9 UPPER RESPIRATORY INFECTION 11/30/2012 VARELALUANA LOVE APRN 465.9 UPPER RESPIRATORY INFECTION 11/30/2012 SEVERINO DO, ODETTE K 465.9 UPPER RESPIRATORY INFECTION 11/30/2012 SEVERINO DO, ODETTE K 465.9 UPPER RESPIRATORY INFECTION 08/06/2013 SEVERINO [...] MOOD DISORDER NOS 08/06/2013 VARELALUANA LOVE APRN R 296.90 MOOD DISORDER NOS 08/06/2013 VARELA HARDWOOD FINISHER LUANA R 296.90 MOOD DISORDER NOS 08/06/2013 SEVERINO DO, [...] STRENUOUS MOVEMENT OR 11/19/2018 CARLOS EDUARDO AMOS MD Ot Z98.51 TUBAL LIGATION STATUS 07/06/2019 LUNASENIA SHOP REPAIRER Ot F17.210 NICOTINE DEPENDENCE, CIGARETTES, UNCOMPL 07/06/2019 LUNA, SENIA SHOP REPAIRER Ot J45.909 UNSPECIFIED ASTHMA, UNCOMPLICATED 07/06/2019 LUNA, SENIA SHOP REPAIRER Ot R10.31 RIGHT LOWER QUADRANT PAIN 07/06/2019 LUNA, SENIA SHOP REPAIRER Ot S39.012A STRAIN OF MUSCLE, FASCIA AND TENDON OF L 07/06/2019 LUNA, SENIA SHOP REPAIRER Ot X50.1XXA OVEREXERTION FROM PROLONGED STATIC OR AW 07/06/2019 LUNA, SENIA SHOP REPAIRER Ot Z98.51 TUBAL LIGATION STATUS 07/08/2019 LUNA, SENIA SHOP REPAIRER Ot F17.210 NICOTINE DEPENDENCE, CIGARETTES, UNCOMPL 07/08/2019 LUNA, SENIA SHOP REPAIRER Ot J45.909 UNSPECIFIED ASTHMA, UNCOMPLICATED 07/08/2019 LUNA, SENIA SHOP REPAIRER Ot R10.31 RIGHT LOWER QUADRANT PAIN 07/08/2019 LUNA, SENIA SHOP REPAIRER Ot S39.012A STRAIN OF MUSCLE, FASCIA AND TENDON OF L 07/08/2019 LUNA, SENIA SHOP REPAIRER Ot X50.1XXA OVEREXERTION FROM PROLONGED STATIC OR AW 07/08/2019 LUNA, SENIA SHOP REPAIRER Ot Z98.51 TUBAL LIGATION STATUS Procedures Code [place] [id number] XRAY HAND DELBERT 2 VIEWS 08/14/2013 Results Test Result Range Complete urinalysis with reflex to cultu re - 07/01/19 17:13 Urine color determination YELLOW NRG Urine clarity determination CLEAR NR G Urine pH measurement by test strip 6.0 5-9 Specific gravity of urine by test strip 1.010 1.016-1.022 Urine protein assay by test strip, semi-quantitative NEGATIVE NEGATIVE Urine glucose detection by automated test strip NE GATIVE NEGATIVE Erythrocytes detection in urine sediment by light micr oscopy NEGATIVE NEGATIVE Urine ketones detection by automated test strip NE GATIVE NEGATIVE Urine nitrite detection by test strip NEGATIVE NEGATIVE Urine total bilirubin detection by test strip NEGA TIVE NEGATIVE Urine urobilinogen measurement by automated test strip (mass/volume) 0.2 mg/dL < = 1.0 Urine leukocyte esterase detection by dipstick NEG ATIVE NEGATIVE Automated urine sediment erythrocyte cou nt by microscopy (number/high power field) NONE NRG Automated urine sediment leukocyte count by microscopy (number/high power field) [HPF] NRG Bacteria detection in urine sediment by light microsco py FEW NRG Squamous epithelial cells detection in u rine sediment by light microscopy 5-10 NRG Crystals detection in urine sediment by light microsco py NONE NRG Casts detection in urine sediment by light microscopy NONE NRG Mucus detection in urine sediment by light microscopy NEGATIVE NRG Complete urinalysis with reflex to culture YES NRG Bacterial urine culture - 07/01/19 17:13 Bacterial urine culture 3 OR MORE NRG COLONY COUNT 30,000 CFU/ML NRG FTX;REPORTABLE GRAM POSITIVES, SUJGGESTING PROBABL E NRG FREE TEXT ENTRY 2 COLLECTION CONTAMINATION WITH SK IN [place] NRG FREE TEXT ENTRY 3 NO SUSCEPTIBILITY PERFORMED NRG Encounters ACCT No. Visit Date/Time Discharge Status Pt. Type Provider Facility Loc./Unit Complaint [id number] 11/06/2014 13:21:00 11/06/2014 23:59: 59 CLS Outpatient ODETTE SEVERINO DO [id number] 09/10/2014 13:42:00 09/10/2014 23:59: 59 CLS Outpatient ODETTE SEVERINO DO [id number] 07/09/2014 13:19:00 07/09/2014 23:59: 59 CLS Outpatient LUANA VARELA APRN [id number] 05/08/2014 14:00:00 05/08/2014 23:59: 59 CLS Outpatient LUANA VARELA APRN [id number] 04/16/2014 09:46:00 04/16/2014 23:59: 59 CLS Outpatient ODETTE SEVERINO DO [id number] 02/27/2014 09:48:00 02/27/2014 23:59: 59 CLS Outpatient SEVERINO DOODETTE [id number] 01/27/2014 16:25:00 01/27/2014 23:59: 59 CLS Outpatient MAYCOL DOODETTE [id number] 12/10/2013 13:25:00 12/10/2013 23:59: 59 CLS Outpatient ODETTE SEVERINO DO [id number] 09/12/2013 14:18:00 09/12/2013 23:59: 59 CLS Outpatient SEVERINO DOODETTE [id number] 08/12/2013 08:52:00 08/12/2013 23:59: 59 CLS Outpatient SEVERINO DOODETTE [id number] 08/06/2013 13:31:00 08/06/2013 23:59: 59 CLS Outpatient ODETTE SEVERINO DO [id number] 2013 14:07:00 2013 23:59: 59 CLS Outpatient ODETTE SEVERINO DO [id number] 01/23/2013 14:09:00 01/23/2013 23:59: 59 CLS Outpatient LUANA VARELA APRN [id number] 10/26/2012 14:25:00 10/26/2012 23:59: 59 CLS Outpatient [id number] 08/27/2012 11:21:00 08/27/2012 23:59: 59 CLS Outpatient LUANA VARELA APRN [id number] 06/29/2012 13:14:00 06/29/2012 23:59: 59 CLS Outpatient LUANA VARELA APRN [id number] 05/25/2012 13:23:00 05/25/2012 23:59:5 9 CLS Outpatient LUANA VARELA APRN [id number] 11/30/2012 14:26:00 Document Registration [id number] 07/01/2019 16:49:00 18:22:00 DIS Outpatient SENIA CARRASCO [facility] ER LOWER BACK PAIN, FREQUE NT URINATION [id number] 02/10/2019 12:32:00 13:09:00 DIS Emergency OLIVIER WILKINSON APRN [facility] ER R KNEE INJ [id number] 11/13/2018 08:03:00 04/16/2 019 10:18:00 DIS Emergency DANDRE ROLDAN, CARLOS EDUARDO Toletnino [facility] ER LEG PAIN [id number] 12/13/2014 15:51:00 015 16:21:00 DIS Emergency JAVAN ROLDAN, JULIA Nolan [facility] ER RASH [id number] 02/17/2012 14:00:00 Document Registration [id number] 02/22/2010 01:54:00 Document Registration [id number] 02/21/2010 10:12:00 Document Registration [id number] 02/19/2019 10:00:00 02/19/2019 23:59:5 9 [facility] Outpatient LUANA VARELA APRN [facility]
== END 2019-07-01 18:22 | disposition home or self-care (01) ==
LOC: EDUNIT# 16:47 → ER 16:49
DX: S39.012A Strain of muscle, fascia and tendon of lower back, initial encounter (principal); J45.909 Unspecified asthma, uncomplicated; F17.210 Nicotine dependence, cigarettes, uncomplicated; Z98.51 Tubal ligation status; X50.1XXA Overexertion from prolonged static or awkward postures, initial encounter
CPT/HCPCS: 81000; 87088; 96372; 99282

== ENCOUNTER 2020-04-19 19:44 | Emergency (ER) | payer BC, MEDICAID ==
[~2020-04-19] VITALS: Ht 152 cm; Wt 74.6 kg
[2020-04-19] MEDS ORDERED: IOHEXOL 350 MG/ML 100 ML (OMNIPAQUE 350) VIAL IV ONE (20:30)
[2020-04-19] MEDS ORDERED: NS 100 ML (IVPB) BAG IV ONE (20:30)
[2020-04-19] MEDS ORDERED: HOLD METFORMIN - RECEIVED CONTRAST 20 ML VIAL IV SCH (20:30)
--- NOTE | 2020-04-19 20:33 | ED Abdominal Pain ---
General Chief Complaint: Abdominal/GI Problems Stated Complaint: DIARRHEA/BLOOD IN STOOL Nursing Triage Note: c/o diarrhea since 04/13/2020. c/o passing mucous today. Sepsis Screen: No Definite Risk History of Present Illness Date Seen by Provider: Apr 19, 2020 Time Seen by Provider: 20:20 Initial Comments This is a well-appearing 49-year-old female who presents to the ER for bloody diarrhea. On Monday she reports intermittent gnawing epigastric ab dominal pain which had improved with Pepto-Bismol. However, she noted she had dark stools after ingestion, but acknowledged this is a side effect of the medication. On , she reports the pain had moved to her left lower quadrant and describes now as an intermittent "lava" sensation, and rates 6 out of 10 at its worst. Reports she continued to have diarrhea, but it has taken on a pale appearance with red bloody streaks. Denies fevers, chills, vomiting, cough, shortness of breath, chest pain, and dysuria. Timing/Duration: 1 Week Severity/Quality: Burning Location: LLQ Radiation: No Radiation Activities at Onset: None Modifying Factors: Improves With Antacids Associated Symptoms: Other (nausea without vomiting) Allergies and Home Medications Allergies Uncoded Allergies: DOES NOT REMEMBER NAME OF ALLERGY. (Allergy, Unknown, 11/13/18) Home Medications Ciprofloxacin HCl 500 Mg Tablet, 500 MG PO BID Prescribed by: ALEXANDRIA CARTER on 04/19/202208 Metronidazole 500 Mg Tablet, 500 MG PO TID Prescribed by: ALEXANDRIA CARTER on 04/19/202208 Patient Home Medication List Home Medication List Reviewed: Yes Review of Systems Review of Systems Constitutional: malaise EENTM: No Symptoms Reported Respiratory: No Symptoms Reported Cardiovascular: No Symptoms Reported Gastrointestinal: See HPI Genitourinary: No Symptoms Reported Musculoskeletal: no symptoms reported Skin: no symptoms reported Psychiatric/Neurological: No Symptoms Reported Endocrine: No Symptoms Reported Hematologic/Lymphatic: No Symptoms Reported Past Eadnbyu-Igvbhi-Barjjx Hx Patient Social History Alcohol Use: Denies Use Recreational Drug Use: No Drug of Choice: denies Smoking Status: Current Everyday Smoker Type Used: Cigarettes 2nd Hand Smoke Exposure: Yes Recent Foreign Travel: No Contact w/Someone Who Travel: No Recent Infectious Disease Expo: No Recent Hopitalizations: No Physical Abuse: No Sexual Abuse: No Mistreated: No Fear: No Immunizations Up To Date Tetanus Booster (TDap): Unknown PED Vaccines UTD: Yes Seasonal Allergies Seasonal Allergies: Yes Past Medical History Surgeries: Yes Tubal Ligation Respiratory: Yes Asthma Cardiac: No Neurological: No Genitourinary: No Gastrointestinal: No Musculoskeletal: Yes Fractures Endocrine: No HEENT: No Cancer: No Did You Recieve Any Treatments: No Psychosocial: No Integumentary: No Blood Disorders: No Adverse Reaction/Blood Tranf: No Physical Exam Vital Signs Vital Signs - First Documented 04/19/20 19:50 Temp 36.7 Pulse 108 Resp 18 B/P (MAP) 156/98 (117) Pulse Ox 96 O2 Delivery Room Air Capillary Refill : Less Than 3 Seconds Height/Weight/BMI Height: 5'0" Weight: 170lbs. oz. 77.494815fn; 32.00 BMI Method:Stated General Appearance: WD/WN, no apparent distress HEENT: PERRL/EOMI, normal ENT inspection, pharynx normal Neck: full range of motion, normal inspection Respiratory: chest non-tender, lungs clear, normal breath sounds, no respiratory distress Cardiovascular: regular rate, rhythm, no murmur Gastrointestinal: normal bowel sounds, soft; No guarding, No rebound Genital/Rectal: normal rectal exam, normal rectal tone, heme positive stool; No tenderness Extremities: normal range of motion, non-tender, normal capillary refill Back: normal inspection, no vertebral tenderness Neurologic/Psychiatric: no motor/sensory deficits, alert, normal mood/affect, oriented x 3 Skin: normal color, warm/dry Progress/Results/Core Measures Results/Orders Lab Results Laboratory Tests Test 04/19/20 20:35 Range/Units White Blood Count 10.4 4.3-11.0 10^3/uL Red Blood Count 4.60 4.35-5.85 10^6/uL Hemoglobin 14.7 11.5-16.0 G/DL Hematocrit 44 35-52 % Mean Corpuscular Volume 95 80-99 FL Mean Corpuscular Hemoglobin 32 25-34 PG Mean Corpuscular Hemoglobin Concent 34 32-36 G/DL Red Cell Distribution Width 12.2 10.0-14.5 % Platelet Count 291 130-400 10^3/uL Mean Platelet Volume 9.4 7.4-10.4 FL Neutrophils (%) (Auto) 77 H 42-75 % Lymphocytes (%) (Auto) 16 12-44 % Monocytes (%) (Auto) 5 0-12 % Eosinophils (%) (Auto) 2 0-10 % Basophils (%) (Auto) 0 0-10 % Neutrophils # (Auto) 8.0 H 1.8-7.8 X 10^3 Lymphocytes # (Auto) 1.7 1.0-4.0 X 10^3 Monocytes # (Auto) 0.5 0.0-1.0 X 10^3 Eosinophils # (Auto) 0.3 0.0-0.3 10^3/uL Basophils # (Auto) 0.0 0.0-0.1 10^3/uL Sodium Level 138 135-145 MMOL/L Potassium Level 3.8 3.6-5.0 MMOL/L Chloride Level 101 98-107 MMOL/L Carbon Dioxide Level 24 21-32 MMOL/L Anion Gap 13 5-14 MMOL/L Blood Urea Nitrogen 12 7-18 MG/DL Creatinine 0.94 0.60-1.30 MG/DL Estimat Glomerular Filtration Rate > 60 BUN/Creatinine Ratio 13 Glucose Level 104 70-105 MG/DL Calcium Level 10.0 8.5-10.1 MG/DL Corrected Calcium 8.5-10.1 MG/DL Total Bilirubin 0.2 0.1-1.0 MG/DL Aspartate Amino Transf (AST/SGOT) 18 5-34 U/L Alanine Aminotransferase (ALT/SGPT) 17 0-55 U/L Alkaline Phosphatase 111 40-136 U/L C-Reactive Protein High Sensitivity 3.56 H 0.00-0.50 MG/DL Total Protein 8.4 H 6.4-8.2 GM/DL Albumin 4.6 H 3.2-4.5 GM/DL My Orders Orders - ALEXANDRIA CARTER WELFARE ANALYST Fecal Occult Bedside (04/19/20 20:01) Cbc With Automated Diff (04/19/20 20:25) Comprehensive Metabolic Panel (04/19/20 20:25) Ct Abdomen/Pelvis W (04/19/20 20:25) Iv Heplock-Insert (Order) (04/19/20 20:27) Iohexol Injection (Omnipaque 350 Mg/Ml 1 (04/19/20 20:30) Received Contrast (Hold Metformin- Contr (04/19/20 20:30) Ns (Ivpb) (Sodium Chloride 0.9% Ivpb Bag (04/19/20 20:30) Hs C Reactive Protein (04/19/20 20:37) Vital Signs/I&O 04/19/20 04/19/20 19:50 22:11 Temp 36.7 36.5 Pulse 108 87 Resp 18 16 B/P (MAP) 156/98 (117) 145/91 (117) Pulse Ox 96 98 O2 Delivery Room Air Room Air Blood Pressure Mean: 117 Fecal Occult: Positive Progress Progress Note : Progress Note Examination of the external rectum does not show any fissures, external hemorrhoids. Bedside fecal occult was positive No internal hemorrhoids apprec iated. CBC, CMP and CT abdomen and pelvis with contrast ordered at this time to further evaluate source. Diagnostic Imaging Diagonstic Imaging: CT Plain Films/CT/US/NM/MRI: abdomen, pelvis Comments NAME: FANY GONZALEZ [facility] REC#: [id number] PT STATUS: REG ER : 1970 PHYSICIAN: ALEXANDRIA CARTER APRN ADMIT DATE: 04/19/20/ER Draft Date of Exam:04/19/20 CT ABDOMEN/PELVIS W PROCEDURE: CT abdomen and pelvis with contrast. TECHNIQUE: Multiple contiguous axial images were obtained through the abdomen and pelvis after administration of intravenous contrast. Auto Exposure Controls were utilized during the CT exam to meet ALARA standards for radiation dose reduction. ATE: April 19, 2020. COMPARISON: None. INDICATION: 49-year-old female, left lower quadrant abdominal pain. Bloody diarrhea. FINDINGS: The visualized portions of the lung bases are clear. The heart is not enlarged. There is no pericardial effusion. The liver is unremarkable in size and contour. There is a homogeneously enhancing lesion of the left lobe of the liver on axial image 22 measuring 1.6 cm in size. The main, right and left portal veins are patent. The gallbladder is unremarkable. There is no identified intrahepatic or extrahepatic bile duct dilation. The main pancreatic duct is not abnormally dilated. Unremarkable appearance of the pancreatic parenchyma. The spleen is normal in size. The adrenal glands are unremarkable. Unremarkable appearance of the renal parenchyma. The urinary collecting systems are not distended. There is no identified renal or ureteral stone. The urinary bladder is unremarkable. The intestinal tract is not distended. There is mild mucosal enhancement of the colon as well as the distal ileum. There is no free intraperitoneal air. There is no drainable fluid collection. There is no free pelvic fluid. There are atherosclerotic calcifications. There is no identified abnormally enlarged lymph node in the abdomen or pelvis meeting CT size criteria for adenopathy. There is no identified acute bony abnormality. IMPRESSION: CT abdomen and pelvis: 1. Mild mucosal enhancement of the distal ileum including the terminal ileum as well as areas of mild mucosal enhancement of the colon. This most likely relates to an active enteritis and colitis. Inflammatory etiologies such as Crohn's disease as well as infectious etiologies are considered in the differential diagnosis. Dictated on workstation # [id number] Dict: 04/19/202110 Trans: 04/19/202142 [facility] [id number] Interpreted by: LEONCIO CHING MD Electronically signed by: Departure Impression Primary Impression: Colitis Disposition: HOME, SELF-CARE Condition: Stable/Unchanged Departure-Patient Inst. Decision time for Depature: 22:01 Referrals: NO,LOCAL PHYSICIAN (PCP) Primary Care Physician Patient Instructions: Colitis, Colitis (DC) Add. Discharge Instructions: Plan: 1. Call Dr. Li office tomorrow to schedule a follow up appointment [phone]. 2. Take antibiotics as directed and complete full course. Take an over the counter probiotic or eat yogurt with live cultures at least two hours after taking antibiotics. 3. Drink plenty of fluids. If you continue to have diarrhea drink fluids with electrolytes such as Gatorade or Powerade. 4. Return if you are having any new or concerning symptoms. All discharge instructions reviewed with patient and/or family. Voiced understanding. Scripts Metronidazole (Flagyl) 500 Mg Tablet 500 MG PO TID for 10 Days, #30 TAB 0 Refills Prov: ALEXANDRIA CARTER WELFARE ANALYST 04/19/20 Ciprofloxacin HCl (Ciprofloxacin HCl) 500 Mg Tablet 500 MG PO BID for 10 Days, #20 TAB 0 Refills Prov: ALEXANDRIA CARTER WELFARE ANALYST 04/19/20 Copy Copies To 1: CINTIA LI DO ALEXANDRIA CARTER APRN Apr 19, 2020 20:33
[2020-04-19 20:51] LABS: BASOPHILS % (AUTO) 0 % (0-10); EOSINOPHILS # (AUTO) 0.3 10^3/uL (0.0-0.3); EOSINOPHILS % (AUTO) 2 % (0-10); HEMATOCRIT 44 % (35-52); HEMOGLOBIN 14.7 G/DL (11.5-16.0); LYMPHOCYTES # (AUTO) 1.7 X 10^3 (1.0-4.0); LYMPHOCYTES % (AUTO) 16 % (12-44); MEAN CORPUSCULAR HEMOGLOBIN 32 PG (25-34); MEAN CORPUSCULAR HGB CONC 34 G/DL (32-36); MEAN CORPUSCULAR VOLUME 95 FL (80-99); MEAN PLATELET VOLUME 9.4 FL (7.4-10.4); MONOCYTES # (AUTO) 0.5 X 10^3 (0.0-1.0); MONOCYTES % (AUTO) 5 % (0-12); NEUTROPHILS % (AUTO) 77 % (42-75); PLATELET COUNT 291 10^3/uL (130-400); WHITE BLOOD COUNT 10.4 10^3/uL (4.3-11.0)
[2020-04-19 21:06] LABS: ALBUMIN 4.6 GM/DL (3.2-4.5); CHLORIDE 101 MMOL/L (98-107); POTASSIUM 3.8 MMOL/L (3.6-5.0); SODIUM 138 MMOL/L (135-145)
[2020-04-19 21:08] LABS: GLUCOSE 104 MG/DL (70-105); TOTAL PROTEIN 8.4 GM/DL (6.4-8.2)
[2020-04-19 21:09] LABS: CARBON DIOXIDE 24 MMOL/L (21-32)
[2020-04-19 21:10] LABS: BILIRUBIN,TOTAL 0.2 MG/DL (0.1-1.0)
[2020-04-19 21:11] LABS: ALKALINE PHOSPHATASE 111 U/L (40-136)
[2020-04-19 21:12] LABS: CREATININE SERUM 0.94 MG/DL (0.60-1.30); GFR ESTIMATED > 60
[2020-04-19 21:13] LABS: BUN/CREATININE RATIO 13
[2020-04-19 21:15] LABS: ALANINE AMINOTRANSFERASE 17 U/L (0-55)
--- NOTE | 2020-04-19 21:43 | Diagnostic Imaging Report ---
PROCEDURE: CT abdomen and pelvis with contrast. TECHNIQUE: Multiple contiguous axial images were obtained through the abdomen and pelvis after administration of intravenous contrast. Auto Exposure Controls were utilized during the CT exam to meet ALARA standards for radiation dose reduction. ATE: April 19, 2020. COMPARISON: None. INDICATION: 49-year-old female, left lower quadrant abdominal pain. Bloody diarrhea. FINDINGS: The visualized portions of the lung bases are clear. The heart is not enlarged. There is no pericardial effusion. The liver is unremarkable in size and contour. There is a homogeneously enhancing lesion of the left lobe of the liver on axial image 22 measuring 1.6 cm in size. The main, right and left portal veins are patent. The gallbladder is unremarkable. There is no identified intrahepatic or extrahepatic bile duct dilation. The main pancreatic duct is not abnormally dilated. Unremarkable appearance of the pancreatic parenchyma. The spleen is normal in size. The adrenal glands are unremarkable. Unremarkable appearance of the renal parenchyma. The urinary collecting systems are not distended. There is no identified renal or ureteral stone. The urinary bladder is unremarkable. The intestinal tract is not distended. There is mild mucosal enhancement of the colon as well as the distal ileum. There is no free intraperitoneal air. There is no drainable fluid collection. There is no free pelvic fluid. There are atherosclerotic calcifications. There is no identified abnormally enlarged lymph node in the abdomen or pelvis meeting CT size criteria for adenopathy. There is no identified acute bony abnormality. IMPRESSION: CT abdomen and pelvis: 1. Mild mucosal enhancement of the distal ileum including the terminal ileum as well as areas of mild mucosal enhancement of the colon. This most likely relates to an active enteritis and colitis. Inflammatory etiologies such as Crohn's disease as well as infectious etiologies are considered in the differential diagnosis. Dictated by: Dictated on workstation # [id number]
[2020-04-19] MEDS ORDERED: METR500T PO (22:09)
[2020-04-19] MEDS ORDERED: CIPR500T4 PO (22:09)
[2020-04-19 22:11] VITALS: BP 145/91
== END 2020-04-19 22:16 | disposition home or self-care (01) ==
LOC: EDUNIT# 19:44 → ER 19:45
DX: K52.89 Other specified noninfective gastroenteritis and colitis (principal); F17.210 Nicotine dependence, cigarettes, uncomplicated
CPT/HCPCS: 36415; 74177; 80053; 82274; 85025; 86141

== ENCOUNTER 2020-05-19 05:35 | Outpatient (RCR) | payer BC, MEDICAID ==
[~2020-05-19] VITALS: Ht 152.4 cm; Wt 74.5 kg
[~2020-05-19 05:35] MED LIST changes: +CIPR500T4 PO; +LORA10TA76 PO; +METR500T PO
== END 2020-05-19 10:29 | disposition home or self-care (01) ==
LOC: PREOP 05:35
PROVIDERS: ATTEND Surgery
DX: Z01.812 Encounter for preprocedural laboratory examination (principal); K92.1 Melena; R10.13 Epigastric pain; Z20.828 Contact with and (suspected) exposure to other viral communicable diseases
CPT/HCPCS: 87635

== ENCOUNTER 2020-05-22 09:05 | Day surgery (SDC) | payer BC, MEDICAID ==
[~2020-05-22] VITALS: Ht 152.4 cm; Wt 74.5 kg
[2020-05-22] MEDS ORDERED: LACTATED RINGERS 1,000 ML IV ONE (09:20)
[2020-05-22] MEDS ORDERED: LACTATED RINGERS 1,000 ML IV STA (09:28)
[2020-05-22] MEDS ORDERED: HURRICAINE EXT TUBE (BENZOCAINE) XX PRN (09:30)
[2020-05-22 09:40] VITALS: BP 134/74
--- NOTE | 2020-05-22 11:03 | Progress Note-Pre Operative ---
Pre-Operative Progress Note H&P Reviewed The H&P was reviewed, patient examined and no changes noted. Date Seen by Provider: May 22, 2020 Time Seen by Provider: 11: Date H&P Reviewed: May 22, 2020 Time H&P Reviewed: 11: Pre-Operative Diagnosis: blood in stool, gerd CINTIA LI DO May 22, 2020 11:02
[2020-05-22] MEDS ORDERED: MIDAZOLAM 2 MG/2 ML (VERSED) VIAL ONE (11:57)
[2020-05-22] MEDS ORDERED: PROPOFOL INJECTION 50 ML IV ONE (11:57)
[2020-05-22 12:25] VITALS: BP_SYST 122; BP_SYST 96; BP_DIAS 52; BP_DIAS 68
--- NOTE | 2020-05-22 12:39 | Progress Note-Post Operative ---
Post-Operative Progess Note Surgeon (s)/Traffic Law Attorney (s) Surgeon CINTIA LI DO Traffic Law Attorney: na Pre-Operative Diagnosis blood in stool, gerd Post-Operative Diagnosis slight gastritis, ileocecal valve inflammation Procedure & Operative Findings Date of Procedure 05/22/20 Procedure Performed/Findings egd c biopsies, colonoscopy c cold biopsy ileocecal valve Anesthesia Type per mda Estimated Blood Loss Estimated blood loss (mL): none Specimens/Packing Specimens Removed antrum, ge, ileocecal valve CINTIA LI DO May 22, 2020 12:39
[2020-05-22] MEDS ORDERED: OMEP-401 PO (12:40)
--- NOTE | 2020-05-22 12:44 | Discharge Inst-Simple/Standard ---
Discharge Inst-Standard Discharge Medications New, Converted or Re-Newed RX: Transmitted to Pharmacy Patient Instructions/Follow Up Plan of Care/Instructions/FU: 2-3 weeks Jaquan Activity as Tolerated: Yes Discharge Diet: Regular Diet CINTIA LI DO May 22, 2020 12:44
[2020-05-22 12:50] VITALS: BP 100/54
[2020-05-22 12:55] VITALS: BP 100/54
--- NOTE | 2020-05-22 13:55 | Anesthesia-General Post-Op ---
MAC Patient Condition Mental Status/LOC: Same as Preop Cardiovascular: Satisfactory Nausea/Vomiting: Absent Respiratory: Satisfactory Pain: Controlled Complications: Absent Post Op Complications Complications None Follow Up Care/Instructions Patient Instructions None needed. Anesthesiology Discharge Order Discharge Order Patient was seen after the procedure and she was doing well, no complaints, stable vital signs, no apparent adverse anesthesia problems. TOM ROMAN DO May 22, 2020 13:55
--- NOTE | 2020-05-22 20:19 | OPERATIVE REPORT ---
DATE OF SERVICE: 05/22/2020 PREOPERATIVE DIAGNOSIS: Blood in stool. POSTOPERATIVE DIAGNOSES: Slight gastritis, ileocecal valve inflammation. SURGEON: Cintia Partida DO ANESTHESIA: Per [facility]. PROCEDURE PERFORMED: Esophagogastroduodenoscopy with biopsies, colonoscopy with cold biopsy of ileocecal valve. ESTIMATED BLOOD LOSS: None. COMPLICATIONS: None. SPECIMENS: Antrum, GE junction, ileocecal valve. INDICATIONS: The patient is a 50-year-old female with blood in stool and GERD symptoms. She understands risks and benefits of procedure and wished to proceed with procedure. Consent was signed in the chart. DESCRIPTION OF PROCEDURE: The patient was taken to the endoscopy suite, placed in left lateral recumbent position. Timeout was performed. Scope was inserted in the mouth, down the esophagus, stomach and into the duodenum without difficulty. There were no polyps, masses or ulcerations within the duodenum. Scope was slowly retracted back into the stomach where it was further insufflated. Slight erythematous changes in the antrum consistent with gastritis. Biopsy of the antrum was obtained. Scope was retroflexed noting no other pathology. Scope was returned to its normal position, slowly withdrawn to the distal esophagus, had normal appearance. No polyps, masses or ulcerations. Biopsy of GE junction was obtained. Scope was then slowly retracted back until completely removed. Digital rectal exam was performed. No palpable polyps, masses or ulcerations. Scope was inserted in the rectum, advanced all the way to cecum with minimal difficulty. Some erythematous changes around the ileocecal valve. Cold biopsy was obtained. Scope was then slowly retracted back. There were no polyps, masses or ulcerations within the cecum, ascending, transverse, descending and sigmoid colon. Once in the rectum, scope was retroflexed noting no other pathology. Scope was returned to its normal position, slowly withdrawn until completely removed. The patient tolerated procedure well without any complications. She was taken to recovery room in stable condition. RECOMMENDATIONS: The patient will be started on omeprazole 20 mg daily. We will see how her symptoms are doing in two to three weeks. Await biopsy results. If no bleeding source was found at this time, we would consider capsule endoscopy if continues and also await biopsy results of the ileocecal valve inflammation which could be source. Job ID: [id number] DocumentID: [id number] Dictated Date: 05/22/2020 12:47:38 Car Shagger Date: 05/22/2020 20:19:05 Dictated By: CINTIA PARTIDA DO
== END 2020-05-22 12:55 | disposition home or self-care (01) ==
LOC: ENDO 09:05
PROVIDERS: ATTEND Surgery
DX: K21.00 Gastro-esophageal reflux disease with esophagitis, without bleeding (principal); K29.70 Gastritis, unspecified, without bleeding; K92.1 Melena; K63.89 Other specified diseases of intestine; J45.909 Unspecified asthma, uncomplicated; E66.9 Obesity, unspecified; Z68.32 Body mass index [BMI] 32.0-32.9, adult; Z79.51 Long term (current) use of inhaled steroids; Z79.899 Other long term (current) drug therapy; Z88.5 Allergy status to narcotic agent